=== PATIENT | female | born 1950 | race Caucasian/White ===

== ENCOUNTER → 2017-06-16 12:34 | Outpatient (CLI) | payer MEDICARE, OTHER, SELFPAY | PROVIDERS: Family Provider Family Medicine Geriatric Medicine; PCP Family Medicine Geriatric Medicine; Visit Provider Internal Medicine Cardiovascular Disease | DX: I48.0 Paroxysmal atrial fibrillation (principal) | CPT/HCPCS: 93225; 93226 ==

== ENCOUNTER → 2017-07-19 13:46 | Outpatient (CLI) | payer MEDICARE, OTHER, SELFPAY ==
[2017-07-19 17:11] LABS: Absolute Lymphocyte Count 1.54 X10^3/ul (0.83-4.51); Absolute Neutrophil Count 3.5 X10^3/uL (2.0-7.7); Basophil# 0.09 X10^3/uL; Basophil% 1.2 % (0-1); Eosinophil# 1.69 X10^3/uL; Eosinophils% 22.9 % (0-5); Hematocrit 39.5 % (37-47); Hemoglobin 12.6 g/dl (12.0-15.0); Lymphocyte # 1.54 X10^3/ul (4.0); Lymphocyte % 20.8 % (19-41); Mean Corp Hgb Conc 31.9 g/gl (32-36); Mean Corpuscular Hgb 24.4 pg (27.0-32.0); Mean Corpuscular Volume 76.6 fL (81-99); Mean Platelet Vol. 11.6 fl (6.2-12.0); Monocyte# 0.59 X10^3/uL; Neutrophil # 3.46 X10^3/uL (2.7-7.7); Neutrophil % 46.8 % (47-70); Platelet Count 273 K/mm3 (150-450); RBC Distribution Width CV 14.6 % (11.6-14.6); Red Blood Count 5.16 M/mm3 (4.2-5.4); White Blood Count 7.4 K/mm3 (4.4-11.0)
[2017-07-19 17:24] LABS: POSITIVE COUNT NO; POSITIVE DIFFERENTIAL NO; POSITIVE MORPHOLOGY NO
[2017-07-19 17:55] LABS: ALB/GLOB Ratio 1.1 RATIO (0.9-2.4); AST(SGOT) 21 U/L (15-37); Alanine Aminotransfer ALT/SGPT 29 U/L (13-56); Albumin, Serum 3.6 g/dL (3.2-5.0); Alkaline Phosphatase 67 U/L (45-117); Anion Gap 7 (5-15); BUN 12 mg/dL (7-18); Calcium,Total 8.2 mg/dL (8.5-10.1); Chloride 103 mmol/L (98-107); EST Glomerular Filtration Rate 59 mL/min (>60); Est Glom Filt Rate - Afr Amer 71 mL/min (>60); Globulin 3.2 g/dL (2.2-4.2); Glucose 88 mg/dL (74-106); Potassium 4.1 mmol/L (3.5-5.1); Protein, Total 6.8 g/dL (6.4-8.2); Sodium Level 140 mmol/L (136-145); Thyroid Stim Hormone (TSH) 2.18 uIU/mL (0.358-3.74)
[2017-07-20 08:46] LABS: Vitamin D,25 Hydroxy 59.1 ng/mL (29.95-100.01)
[2017-07-21 09:20] LABS: Hep C Antibodies <0.1 s/co ratio (0.0-0.9)
== END ==
PROVIDERS: Family Provider Family Medicine Geriatric Medicine; PCP Family Medicine Geriatric Medicine; Visit Provider Family Medicine Geriatric Medicine
DX: E11.9 Type 2 diabetes mellitus without complications (principal); E55.9 Vitamin D deficiency, unspecified; I10 Essential (primary) hypertension; Z13.89 Encounter for screening for other disorder
CPT/HCPCS: 36415; 80053; 82306; 84443; 85025; 86803

== ENCOUNTER → 2017-12-05 14:36 | Outpatient (CLI) | payer MEDICARE, OTHER, SELFPAY ==
[2017-12-05 17:02] LABS: Creatinine, Serum 0.97 mg/dL (0.55-1.02); EST Glomerular Filtration Rate 61 mL/min (>60); Est Glom Filt Rate - Afr Amer 73 mL/min (>60)
== END ==
PROVIDERS: Family Provider Family Medicine Geriatric Medicine; PCP Family Medicine Geriatric Medicine; Visit Provider Orthopaedic Surgery Orthopaedic Surgery of the Spine
DX: Z98.890 Other specified postprocedural states (principal)
CPT/HCPCS: 36415; 82565

== ENCOUNTER → 2018-01-18 13:42 | Outpatient (CLI) | payer MEDICARE, OTHER, SELFPAY ==
[2018-01-18 16:17] LABS: Absolute Lymphocyte Count 1.87 X10^3/ul (0.83-4.51); Absolute Neutrophil Count 5.1 X10^3/uL (2.0-7.7); Basophil# 0.07 X10^3/uL; Basophil% 0.9 % (0-1); Eosinophil# 0.21 X10^3/uL; Eosinophils% 2.7 % (0-5); Hematocrit 42.3 % (37-47); Hemoglobin 13.7 g/dl (12.0-15.0); Lymphocyte # 1.87 X10^3/ul (4.0); Lymphocyte % 23.7 % (19-41); Mean Corp Hgb Conc 32.4 g/gl (32-36); Mean Corpuscular Volume 77.2 fL (81-99); Mean Platelet Vol. 11.3 fl (6.2-12.0); Monocyte# 0.63 X10^3/uL; Neutrophil # 5.06 X10^3/uL (2.7-7.7); Neutrophil % 64.1 % (47-70); Platelet Count 322 K/mm3 (150-450); RBC Distribution Width CV 14.1 % (11.6-14.6); RBC Distribution Width SD 39.2 fl (35.1-43.9); Red Blood Count 5.48 M/mm3 (4.2-5.4); White Blood Count 7.9 K/mm3 (4.4-11.0)
[2018-01-18 16:21] LABS: POSITIVE COUNT NO; POSITIVE DIFFERENTIAL NO; POSITIVE MORPHOLOGY NO
[2018-01-18 16:41] LABS: Vitamin D,25 Hydroxy 57.8 ng/mL (29.95-100.01)
[2018-01-18 16:52] LABS: ALB/GLOB Ratio 1.1 RATIO (0.9-2.4); AST(SGOT) 16 U/L (15-37); Alanine Aminotransfer ALT/SGPT 38 U/L (13-56); Albumin, Serum 3.7 g/dL (3.2-5.0); Alkaline Phosphatase 67 U/L (45-117); Anion Gap 9 (5-15); BUN 22 mg/dL (7-18); BUN/Creat Ratio 19.6 RATIO (10-20); Calcium,Total 8.8 mg/dL (8.5-10.1); Chloride 99 mmol/L (98-107); Creatinine, Serum 1.12 mg/dL (0.55-1.02); EST Glomerular Filtration Rate 51 mL/min (>60); Est Glom Filt Rate - Afr Amer 62 mL/min (>60); Globulin 3.4 g/dL (2.2-4.2); Glucose 95 mg/dL (74-106); Potassium 4.1 mmol/L (3.5-5.1); Protein, Total 7.1 g/dL (6.4-8.2); Sodium Level 139 mmol/L (136-145); Thyroid Stim Hormone (TSH) 1.25 uIU/mL (0.358-3.74)
== END ==
PROVIDERS: Family Provider Family Medicine Geriatric Medicine; PCP Family Medicine Geriatric Medicine; Visit Provider Family Medicine Geriatric Medicine
DX: E55.9 Vitamin D deficiency, unspecified (principal); I10 Essential (primary) hypertension
CPT/HCPCS: 36415; 80053; 82306; 84443; 85025

== ENCOUNTER → 2018-02-10 12:58 | Outpatient (CLI) | payer MEDICARE, OTHER, SELFPAY ==
[2018-02-10 13:39] LABS: Absolute Lymphocyte Count 1.64 X10^3/ul (0.83-4.51); Absolute Neutrophil Count 5.2 X10^3/uL (2.0-7.7); Basophil# 0.04 X10^3/uL; Basophil% 0.5 % (0-1); Eosinophil# 0.08 X10^3/uL; Hematocrit 41.4 % (37-47); Hemoglobin 13.4 g/dl (12.0-15.0); Lymphocyte # 1.64 X10^3/ul (4.0); Lymphocyte % 21.4 % (19-41); Mean Corp Hgb Conc 32.4 g/gl (32-36); Mean Corpuscular Hgb 25.3 pg (27.0-32.0); Mean Corpuscular Volume 78.3 fL (81-99); Mean Platelet Vol. 10.2 fl (6.2-12.0); Monocyte# 0.72 X10^3/uL; Monocyte% 9.4 % (0-10); Neutrophil # 5.15 X10^3/uL (2.7-7.7); Neutrophil % 67.2 % (47-70); Platelet Count 290 K/mm3 (150-450); RBC Distribution Width CV 13.9 % (11.6-14.6); RBC Distribution Width SD 39.2 fl (35.1-43.9); Red Blood Count 5.29 M/mm3 (4.2-5.4); White Blood Count 7.7 K/mm3 (4.4-11.0)
[2018-02-10 13:43] LABS: POSITIVE COUNT NO; POSITIVE DIFFERENTIAL NO; POSITIVE MORPHOLOGY NO
[2018-02-10 13:56] LABS: Anion Gap 6 (5-15); BUN 19 mg/dL (7-18); BUN/Creat Ratio 18.4 RATIO (10-20); Chloride 102 mmol/L (98-107); Creatinine, Serum 1.03 mg/dL (0.55-1.02); EST Glomerular Filtration Rate 56 mL/min (>60); Est Glom Filt Rate - Afr Amer 68 mL/min (>60); Glucose 89 mg/dL (74-106); Potassium 3.8 mmol/L (3.5-5.1); Sodium Level 141 mmol/L (136-145)
--- OUTSIDE RECORDS SUMMARY | 2018-04-07 11:57 | XMS RPT_ITS ---
:1950 Author Organization OHIP Care Team Providers Name Role Phone LexxKahlil delgado Attending Unavailable Lalo, Alphonso Chi Referring Unavailable Lalo, Alphonso Chi Primary Care Unavailable Lexx, [place] Attending Unavailable Lexx, [place] Referring Unavailable Lalo, Alphonso Chi Primary Care Unavailable Lexx Kahlil Attending Unavailable Lexx, Kahlil Referring Unavailable Lalo, Alphonso Chi Attending Unavailable Lalo, Alphonso Chi Primary Care Unavailable Radha Jay Attending Unavailable Lalo, Alphonso Chi Referring Unavailable Lalo, Alphonso Chi Primary Care Unavailable JESUS MANUEL JONESIV Attending Unavailable Lalo, Alphonso Chi Primary Care Unavailable JESUS MANUEL JONESIV Referring Unavailable Lalo, Alphonso Chi Attending Unavailable Lalo, Alphonso Chi Primary Care Unavailable Lalo, Alphonso Chi Attending Unavailable Lalo, Alphonso Chi Referring Unavailable Lalo, Alphonso Chi Primary Care Unavailable PROBLEMS PROBLEMS DATE TYPE CONDITION / CODE ATTENDING STATUS SOURCE 02/10/2018 Unknown I10 - Essential Lalo, Alphonso Chi Active [facility] hypertension / Hospital I10(ICD-10) Repository 01/18/2018 Unknown E55.9 - Vitamin D Lalo, Alphonso Chi Active [facility] deficiency, Community unspecified / Hospital E55.9(ICD-10) Repository 11/16/2017 Unknown I48.0 - Paroxysmal Jay, Active [place] atrial [facility] fibrillation / Hospital I48.0(ICD-10) Repository 05/17/2017 Unknown E78.5 - Lexx, Kahlil Active [place] Hyperlipidemia, Community unspecified / Hospital E78.5(ICD-10) Repository PROCEDURES PROCEDURES No Procedure Records FoundRESULTS RESULTS CBC W/DIFF, AUTOMATED Collected: 02/10/2018 Status: F Source: [place] 1:03 PM [facility] REPOSITORY TYPE CODE TESTS RESULT OUT OF RANGE REFERENCE UNITS LAB L100.1000 4.4-11.0 K/mm3 Normal WBC 7.7 LAB L100.1200 4.2-5.4 M/mm3 Normal RBC 5.29 LAB L100.1300 12.0-15.0 g/dl Normal HGB 13.4 LAB L100.1400 37-47 % Normal HCT 41.4 LAB L100.1500 81-99 fL Low MCV 78.3 LAB L100.1600 27.0-32.0 pg Low MCH 25.3 LAB L100.1700 32-36 g/gl Normal MCHC 32.4 LAB L100.1810 11.6-14.6 % Normal RDW CV 13.9 LAB L100.1820 35.1-43.9 fl Normal RDW SD 39.2 LAB L100.1900 150-450 K/mm3 Normal PLT 290 LAB L100.2000 6.2-12.0 fl Normal MPV 10.2 LAB L100.2100 47-70 % Normal NEUT% 67.2 LAB L100.2200 19-41 % Normal LY% 21.4 LAB L100.2300 0-10 % Normal MONO% 9.4 LAB L100.2400 0-5 % Normal EO% 1.0 LAB L100.2500 0-1 % Normal BASO% 0.5 LAB L100.2550 0.0-0.9 % Normal IM GRAN % 0.500 Result Comment: IG% - Immature Granulocytes (promyelocytes, myelocytes and metamyelocytes) > 1% indicates that a LEFT SHIFT is Present. LAB L100.2620 2.0-7.7 X10 3/uL Normal Absolute Neut 5.2 LAB L100.2720 0.83-4.51 X10 3/ul Normal Absolute Lymph 1.64 Performed By: #### L100.0100 #### [facility] [address] [place], [place], [address] BASIC METABOLIC Collected: 02/10/2018 Status: F Source: [facility] 1:03 PM [facility] TYPE CODE TESTS RESULT OUT OF RANGE REFERENCE UNITS LAB L501.0100 74-106 mg/dL Normal GLU 89 Result Comment: Please note revised GLUCOSE reference range effective 2017. LAB L501.1000 7-18 mg/dL High BUN 19 LAB L501.1100 0.55-1.02 mg/dL High CREAT,SERUM 1.03 Result Comment: The validity of the calculated GFR AND GFRAA in patients over 70 years has not been determined. Clinical correlation is essential. LAB L501.1110 >60 mL/min Low EST GFR 56 Result Comment: Non- GFR Calc LAB L501.1115 >60 mL/min Normal EST GFR - AA 68 Result Comment: GFR Calc LAB L501.1300 10-20 RATIO Normal BUN/CRE 18.4 LAB L501.2200 8.5-10.1 mg/dL CA Normal 9.0 LAB L501.5300 136-145 mmol/L NA Normal 141 LAB L501.5600 3.5-5.1 mmol/L K Normal 3.8 LAB L501.5900 98-107 mmol/L CL Normal 102 LAB L501.6100 21.0-32.0 mmol/L High CO2 33.0 LAB L501.6200 5-15 Normal GAP 6 Performed By: #### L500.2500 #### [facility] [address] [place], [place], [address] CBC W/DIFF, AUTOMATED Collected: 01/18/2018 Status: F Source: [place] 1:49 PM [facility] [place] TYPE CODE TESTS RESULT OUT OF RANGE REFERENCE UNITS LAB L100.1000 4.4-11.0 K/mm3 Normal WBC 7.9 LAB L100.1200 4.2-5.4 M/mm3 High RBC 5.48 LAB L100.1300 12.0-15.0 g/dl Normal HGB 13.7 LAB L100.1400 37-47 % Normal HCT 42.3 LAB L100.1500 81-99 fL Low MCV 77.2 LAB L100.1600 27.0-32.0 pg Low MCH 25.0 LAB L100.1700 32-36 g/gl Normal MCHC 32.4 LAB L100.1810 11.6-14.6 % Normal RDW CV 14.1 LAB L100.1820 35.1-43.9 fl Normal RDW SD 39.2 LAB L100.1900 150-450 K/mm3 Normal PLT 322 LAB L100.2000 6.2-12.0 fl Normal MPV 11.3 LAB L100.2100 47-70 % Normal NEUT% 64.1 LAB L100.2200 19-41 % Normal LY% 23.7 LAB L100.2300 0-10 % Normal MONO% 8.0 LAB L100.2400 0-5 % Normal EO% 2.7 LAB L100.2500 0-1 % Normal BASO% 0.9 LAB L100.2550 0.0-0.9 % Normal IM GRAN % 0.600 Result Comment: IG% - Immature Granulocytes (promyelocytes, myelocytes and metamyelocytes) > 1% indicates that a LEFT SHIFT is Present. LAB L100.2620 2.0-7.7 X10 3/uL Normal Absolute Neut 5.1 LAB L100.2720 0.83-4.51 X10 3/ul Normal Absolute Lymph 1.87 Performed By: #### L100.0100 #### [facility] [address] [place], [place], [address] VITAMIN D,25 HYDROXY Collected: 01/18/2018 Status: F Source: [place] 1:49 PM [facility] [place] TYPE CODE TESTS RESULT OUT OF RANGE REFERENCE UNITS LAB L506.1000 29.95-100.01 ng/mL Normal Vitamin D 57.8 25-OH Result Comment: Vitamin D 25(OH) Status Range Deficiency <20 ng/mL (50nmol/L) Insuffciency 20 - 30 ng/mL (50 - 75 nmol/L) Sufficiency 30 - 100 ng/mL (75 - 250 nmol/L) Toxicity >100 ng/mL (>250 nmol/L) Performed By: #### L506.1000 #### [facility] [place], [address] COMPREHENSIVE METABOLIC Collected: 01/18/2018 Status: F Source: [place] [facility] 1:49 PM [facility] TYPE CODE TESTS RESULT OUT OF RANGE REFERENCE UNITS LAB L501.0100 74-106 mg/dL Normal GLU 95 Result Comment: Please note revised GLUCOSE reference range effective 2017. LAB L501.1000 7-18 mg/dL High BUN 22 LAB L501.1100 0.55-1.02 mg/dL High CREAT,SERUM 1.12 Result Comment: The validity of the calculated GFR AND GFRAA in patients over 70 years has not been determined. Clinical correlation is essential. LAB L501.1110 >60 mL/min Low EST GFR 51 Result Comment: Non- GFR Calc LAB L501.1115 >60 mL/min Normal EST GFR - AA 62 Result Comment: GFR Calc LAB L501.1300 10-20 RATIO Normal BUN/CRE 19.6 LAB L501.1500 6.4-8.2 g/dL T Normal PROT 7.1 LAB L501.1800 3.2-5.0 g/dL Normal ALB 3.7 LAB L501.1950 2.2-4.2 g/dL Normal GLOB 3.4 LAB L501.2000 0.9-2.4 RATIO Normal A/G 1.1 LAB L501.2200 8.5-10.1 mg/dL CA Normal 8.8 LAB L501.4100 15-37 U/L Normal AST 16 LAB L501.4305 45-117 U/L Normal ALK P 67 LAB L501.4405 13-56 U/L Normal ALT 38 LAB L501.4600 0.20-1.00 mg/dL T Normal BILI 0.40 LAB L501.5300 136-145 mmol/L NA Normal 139 LAB L501.5600 3.5-5.1 mmol/L K Normal 4.1 LAB L501.5900 98-107 mmol/L CL Normal 99 LAB L501.6100 21.0-32.0 mmol/L Normal CO2 31.0 LAB L501.6200 5-15 Normal GAP 9 Performed By: #### L500.4050, L501.9520 #### [facility] [address] [place], [address] THYROID STIM HORMONE Collected: 01/18/2018 Status: F Source: [place] ([facility]) 1:49 PM [facility] TYPE CODE TESTS RESULT OUT OF RANGE REFERENCE UNITS LAB L501.9520 0.358-3.74 uIU/mL Normal TSH 1.25 Performed By: #### L500.4050, L501.9520 #### [facility] [address] [place], [address] SERUM CREATININE AND Collected: 12/05/2017 Status: F Source: [place] G[facility] 2:42 PM [facility] TYPE CODE TESTS RESULT OUT OF RANGE REFERENCE UNITS LAB L501.1100 0.55-1.02 mg/dL Normal 0.97 CREAT,SERUM Result Comment: The validity of the calculated GFR AND GFRAA in patients over 70 years has not been determined. Clinical correlation is essential. LAB L501.1110 >60 mL/min Normal EST GFR 61 Result Comment: Non- GFR Calc LAB L501.1115 >60 mL/min Normal EST GFR - AA 73 Result Comment: GFR Calc Performed By: #### L501.1105 #### [facility] [address] [place], [address] CARDIOLOGY VISIT Observed: 11/24/2017 Status: F Source: [place] RE[facility] 10:36 AM [facility] [address] [place] [address] OFFICE VISIT Date of Service: 11/16/17 MR#: [id number] Acct: [id number] Name: VIC CEDENO Rep #: [id number] : 1950 Provider: Radha Jay Age/Sex: 67/F Location: [facility] Status: Signed HPI HPI Details: VIC CEDENO, is a 67 F who presents to the office today for a cardiovascular follow-up. She has a history of atrial fibrillation with RVR. She was cardioverted in 2013 in 2014. She also has a history of hypertension, hyperlipidemia and lower extremity edema. Pt did restart her Xarelto, she sts that she was having short episodes of atrial fib. She sts that when she gets up in the morning she feels that her heart is pounding but after she takes her medication it goes away. She does not have any chest pain/heaviness. She does not have worsening SOB. She does have issues with her back. She does occasionally have edema. She does occasionally have lightheadedness/dizziness. She has not had any near syncope/syncope. Intake Vital Signs11/16/17 Height 5 ft 4 in 11/16/17 Weight: 199 lb 11/16/17 Body Mass Index (BMI) 34.1 11/16/17 Blood Pressure 152/80 11/16/17 Respiratory Rate 18 11/16/17 Pulse Rate 60 Intake Visit Reasons: 6 M FU Allergies amlodipine besylate [From [facility]] Adverse Reaction (Intermediate, Verified 11/16/17 12:26) Edema in legs (known side effect of Amlodipine) hydrochlorothiazide Adverse Reaction (Intermediate, Verified 11/16/17 12:26) Doesn't feel good Medications Duloxetine Hcl [Cymbalta] 60 mg PO DAILY 08/24/13 [History Confirmed 11/16/17] Estrogens, Conjugated [Premarin] 0.625 mg PO DAILY 08/24/13 [History Confirmed 11/16/17] Levothyroxine [Synthroid] 50 mcg PO DAILY 08/24/13 [History Confirmed 11/16/17] Metoprolol Tartrate [Lopressor (beta chivo)] 50 mg PO BID 08/24/13 [History Confirmed 11/16/17] amlodipine 5 mg tablet 5 mg PO BID #180 tab 03/30/17 [Rx Confirmed 11/16/17] ergocalciferol (vitamin D2) 50,000 unit capsule 50,000 unit PO QWEEK 05/11/17 [History Confirmed 11/16/17] flecainide 100 mg tablet 100 mg PO BID tab 05/11/17 [History Confirmed 11/16/17] rosuvastatin 10 mg tablet 10 mg PO QHS tab 05/11/17 [History Confirmed 11/16/17] losartan 100 mg tablet 100 mg PO DAILY #90 tab 06/08/17 [Rx Confirmed 11/16/17] rivaroxaban 20 mg tablet 20 mg PO QDAY #90 tab 09/07/17 [Rx Confirmed 11/16/17] furosemide 40 mg tablet 40 mg PO QDAY PRN #30 tab 11/16/17 [Rx Confirmed 11/16/17] [facility] Medical History Hyperlipidemia (Chronic) Diabetes mellitus (Chronic) 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 (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) Anemia (Chronic) Paroxysmal atrial fibrillation (Chronic) Dyslipidemia (Chronic) Hypertension (Chronic) Surgical History History of left heart catheterization (Chronic) Family History Father unknown health history Mother , Age 32 from breast cancer Breast cancer Brother Atrial fibrillation Social History Smoking Status: Never smoker ROS Const Const: Negative for fatigue, weakness, difficulty sleeping, frequent falls, excessive sweating or headache(s) Eyes Eyes: Negative for loss of peripheral vision, transient loss of vision, blurry vision, tunnel vision or double vision ENT ENT: Negative for headache(s), dizziness, Nosebleed/epistaxis or balance problems Cardio Chest Pain: No Palpitations: Yes (Usually in the morning) feels like its: irregular Edema: None Muscle aches with walking: None Resp Respiratory: Negative for SOB with activity, SOB at rest, SOB orthopnea\SOB lying down, paroxysmal nocturnal dyspnea or Cough GI GI: Negative nausea, heartburn, black,tarry stools or vomiting : Negative for hematuria Musc Musc: Negative for balance problems, muscle aches/ myalgia, muscle weakness or joint pain Skin Skin: Negative non-healing lesions, unusual bruising or rash Neuro Neuro: Negative for weakness, frequent falls, headache(s), blurry vision, double vision, dizziness, lightheadedness, orthostatic symptoms, near syncope, syncope or lack of coordination Dyllan Hematologic/Lymphatic: Negative for easy bruising or easy bleeding Endo Endo: Negative for fatigue, excessive sweating or increased thirst/drinking Psych Psych: Negative for anxiety or depression Allergy Allergy/Immunology: Negative for hives, Negative for rash Cardiology Exam Const Appearance: cooperative, healthy appearing, well developed, well groomed and no acute distress Nutritional Appearance: well nourished and average body habitus Orientation: alert, awake and oriented x3 Head Head: normal to inspection, normocephalic and atraumatic Ears: hearing grossly normal bilaterally and external ears normal Nose: external nose normal, nasal mucous membranes and turbinates normal, nares normal, septum normal, no nasal discharge Face and Sinus: face symmetric Mouth: oral mucosae normal, tongue normal, oropharynx normal and moist mucous membranes Teeth and gingiva: dentition normal Throat: posterior oropharynx normal, tonsils normal and uvula midline Eyes General: appearance normal, both eyes and all related structures Eyelids: eyelids normal Conjunctivae: conjunctivae normal Pupils: PERRL, normal by confrontation and accommodation normal EOM: EOM intact bilaterally Neck Neck: normal visual inspection, trachea midline and no JVD JVD: +5 Carotids: normal carotid upstroke and bounding pulses Chest Chest inspection: normal inspection of the chest, symmetric chest movement and normal respiratory effort Auscultation: Bilateral: Clear to Auscultation Cardio Palpation: normal PMI Rate: regular rate Rhythm: regular rhythm Heart sounds: S1 normal, S2 normal and normal, physiologic split S2; negative rub, gallop or murmur GI GI: normal to inspection, soft, no hepatosplenomegaly and bowel sounds present Neuro General: alert, awake, oriented x3, no focal sensory deficit, gait normal and moves all extremities Skin Skin: no rashes or lesions noted Extremities Pulses: Normal: Right Femoral Pulse, Left Femoral Pulse, Right Dorsalis Pedis Pulse, Left Dorsalis Pedis Pulse, Right Posterior Tibial Pulse, Left Posterior Tibial Pulse, Right Radial Pulse, Left Radial Pulse Lower Extremity Edema: None: Bilateral Musculoskel Musculoskeletal: No joint tenderness Psych Psychological: normal affect Supplemental Info Heart catheterization from 2014 demonstrated normal left main, LAD with no high-grade stenosis, circumflex with no high-grade stenosis, codominant left circumflex with no high-grade stenosis, codominant RCA with no high-grade stenosis with a preserved ejection fraction. Assessment AND Plan 1. Paroxysmal atrial fibrillation I48.0 Plan - MARISSA Khanna Patient has had some symptomatic recurrence. She will continue with her flecainide. She is also on a rate limiting medication in addition to her factor Xa inhibitor. Orders Orders: 2. Essential hypertension I10 Plan - MARISSA Khanna Patient is having fluctuations of blood pressures. suggested that she try to split her losartan to half in the morning and half in the evening to see if this helps with her symptoms. She will let us know if she still having problems. Overall it is adequately controlled. 3. Dyslipidemia E78.5 Plan - MARISSA Khanna These are managed by her primary care doctor. Recent lipid profile demonstrates total cholesterol of 175, HDL 60, LDL 90. Will not make any adjustments. Plan Detail Other Medications New: Additional Comments - MARISSA Khanna The above patient was discussed with Dr. Hallman, he agrees with plan of care. Thank you for allowing us to participate in patient's plan of care, if you have any questions please do not hesitate to call. This note was generated using a voice recognition system and there may be incorrect words, spelling or punctuation errors that were not noted when reviewing the office note prior to saving. 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) Coding Level of Care Code Off vis,est,level 3 Diagnoses Paroxysmal atrial fibrillation I48.0 Essential hypertension I10 Hypertension type: essential hypertension Dyslipidemia E78.5 Coding Level of Care Code Off vis,est,level 3 Diagnoses Paroxysmal atrial fibrillation I48.0 Essential hypertension I10 Hypertension type: essential hypertension Dyslipidemia E78.5 11/16/17 1340 <Electronically signed by Radha ANN> Date Radha ANN 11/24/17 1036<Electronically signed by Kahlil Hallman MD> Cosigner Signature: Date (if applicable) Kahlil Hallman MD CC: Alphonso May MD 12 LEAD EKG PERFORMED Observed: 11/16/2017 Status: F Source: [place] BY [facility] 1:09 PM [facility] [facility] [address] [place] [address] 12 Lead EKG performed by [facility] 11/16/17 1308 MR#: [id number] Acct: [id number] Name: VIC CEDENO Rep #: [id number] : 1950 67 From: Radha ANN Attending Dr: Radha Jay Status: DEP AMB Ordering Dr: Radha Jay Date: 11/16/17 Location[place] [facility] Sex: F C Admitted: [facility]/12 Lead EKG performed by [facility] ECG Report Interpretation Sinus Rhythm WITHIN NORMAL LIMITSElectronically signed on 02/23/2018 at 11:32 by Kahlil Hallman Software Version [id number] 02/23/18 1135 Date Radha ANN CC: Alphonso May MD Date Dictated: 11/16/171307 Date Transcribed: 11/16/171307 Beater Worker Helper: GEOFF Signed CBC W/DIFF, AUTOMATED Collected: 07/19/2017 Status: F Source: [place] 1:51 PM [facility] TYPE CODE TESTS RESULT OUT OF RANGE REFERENCE UNITS LAB L100.1000 4.4-11.0 K/mm3 Normal WBC 7.4 LAB L100.1200 4.2-5.4 M/mm3 Normal RBC 5.16 LAB L100.1300 12.0-15.0 g/dl Normal HGB 12.6 LAB L100.1400 37-47 % Normal HCT 39.5 LAB L100.1500 81-99 fL Low MCV 76.6 LAB L100.1600 27.0-32.0 pg Low MCH 24.4 LAB L100.1700 32-36 g/gl Low MCHC 31.9 LAB L100.1810 11.6-14.6 % Normal RDW CV 14.6 LAB L100.1820 35.1-43.9 fl Normal RDW SD 40.0 LAB L100.1900 150-450 K/mm3 Normal PLT 273 LAB L100.2000 6.2-12.0 fl Normal MPV 11.6 LAB L100.2100 47-70 % Low NEUT% 46.8 LAB L100.2200 19-41 % Normal LY% 20.8 LAB L100.2300 0-10 % Normal MONO% 8.0 LAB L100.2400 0-5 % High EO% 22.9 LAB L100.2500 0-1 % High BASO% 1.2 LAB L100.2550 0.0-0.9 % Normal IM GRAN % 0.300 Result Comment: IG% - Immature Granulocytes (promyelocytes, myelocytes and metamyelocytes) > 1% indicates that a LEFT SHIFT is Present. LAB L100.2620 2.0-7.7 X10 3/uL Normal Absolute Neut 3.5 LAB L100.2720 0.83-4.51 X10 3/ul Normal Absolute Lymph 1.54 Performed By: #### L100.0100 #### [facility] [address] [place], [place], [id number] COMPREHENSIVE METABOLIC Collected: 07/19/2017 Status: F Source: [facility] 1:51 PM [facility] TYPE CODE TESTS RESULT OUT OF RANGE REFERENCE UNITS LAB L501.0100 74-106 mg/dL Normal GLU 88 Result Comment: Please note revised GLUCOSE reference range effective 2017. LAB L501.1000 7-18 mg/dL Normal BUN 12 LAB L501.1100 0.55-1.02 mg/dL Normal CREAT,SERUM 1.00 Result Comment: The validity of the calculated GFR AND GFRAA in patients over 70 years has not been determined. Clinical correlation is essential. LAB L501.1110 >60 mL/min Low EST GFR 59 Result Comment: Non- GFR Calc LAB L501.1115 >60 mL/min Normal EST GFR - AA 71 Result Comment: GFR Calc LAB L501.1300 10-20 RATIO Normal BUN/CRE 12.0 LAB L501.1500 6.4-8.2 g/dL T Normal PROT 6.8 LAB L501.1800 3.2-5.0 g/dL Normal ALB 3.6 LAB L501.1950 2.2-4.2 g/dL Normal GLOB 3.2 LAB L501.2000 0.9-2.4 RATIO Normal A/G 1.1 LAB L501.2200 8.5-10.1 mg/dL Low CA 8.2 LAB L501.4100 15-37 U/L Normal AST 21 LAB L501.4305 45-117 U/L Normal ALK P 67 LAB L501.4405 13-56 U/L Normal ALT 29 LAB L501.4600 0.20-1.00 mg/dL T Normal BILI 0.30 LAB L501.5300 136-145 mmol/L NA Normal 140 LAB L501.5600 3.5-5.1 mmol/L K Normal 4.1 LAB L501.5900 98-107 mmol/L CL Normal 103 LAB L501.6100 21.0-32.0 mmol/L Normal CO2 30.0 LAB L501.6200 5-15 Normal GAP 7 Performed By: #### L500.4050, L501.9520 #### [facility] [address] [place], [place], [id number] THYROID STIM HORMONE Collected: 07/19/2017 Status: F Source: [place] ([facility]) 1:51 PM [facility] TYPE CODE TESTS RESULT OUT OF RANGE REFERENCE UNITS LAB L501.9520 0.358-3.74 uIU/mL Normal TSH 2.18 Performed By: #### L500.4050, L501.9520 #### [facility] [address] [place], [address] VITAMIN D,25 HYDROXY Collected: 07/19/2017 Status: F Source: [place] 1:51 PM [facility] TYPE CODE TESTS RESULT OUT OF RANGE REFERENCE UNITS LAB L506.1000 29.95-100.01 ng/mL Normal Vitamin D 59.1 25-OH Result Comment: Vitamin D 25(OH) Status Range Deficiency <20 ng/mL (50nmol/L) Insuffciency 20 - 30 ng/mL (50 - 75 nmol/L) Sufficiency 30 - 100 ng/mL (75 - 250 nmol/L) Toxicity >100 ng/mL (>250 nmol/L) Performed By: #### L506.1000 #### [facility] [address] [place], [address] HEPATITIS C ANTIBODIES Collected: 07/19/2017 Status: F Source: [place] 1:51 PM [facility] TYPE CODE TESTS RESULT OUT OF RANGE REFERENCE UNITS LAB L3100.0650 0.0-0.9 s/co ratio Normal HEP C AB <0.1 Result Comment: Negative: < 0.8 Indeterminate: 0.8 - 0.9 Positive: > 0.9 The CDC recommends that a positive HCV antibody result be followed up with a HCV Nucleic Acid Amplification test (623470). Performed at: [facility] [id number] Political Researcher: Josh Castaneda PhD, Phone: [phone] Performed By: #### L3100.0625 #### [facility] (refer to report for specific site) refer to report for address and phone number CARDIOLOGY VISIT Observed: 05/17/2017 Status: F Source: [place] RE[facility] 2:23 PM [facility] [address] [place] [address] OFFICE VISIT Date of Service: 05/17/17 MR#: [id number] Acct: [id number] Name: VIC CEDEON Rep #: [id number] : 1950 Provider: Kahlil Hallman MD Age/Sex: 66/F Location: [facility] Status: Signed HPI [facility] Chief Complaint: Follow-up visits. Details: VIC CEDENO, is a 66 F who presents to the office today for a follow-up visit. She is a lady with a history of previous atrial fibrillation hypertension hyperlipidemia and no documented obstructive coronary disease. As you know her last episode atrial for ablation was almost 3 years ago she has maintained sinus rhythm. She denies any chest pain or shortness breath or paroxysmal nocturnal dyspnea or pedal edema no dizziness no lightheadedness no presyncope or syncope. She has been compliant with all her medications. As you know she really wants to get off the anticoagulation. I did explain to her that she does have an elevated chads score. However it appears that she has not had any recurrence in over 3 years. Her physical exam today demonstrates clear lung zuleta regular rate and rhythm and no pedal edema her blood pressure is under excellent control. Intake Vital Signs05/17/17 Height 5 ft 4 in 05/17/17 Weight: 194 lb 05/17/17 Body Mass Index (BMI) 33.3 05/17/17 Blood Pressure 130/64 Intake Visit Reasons: 6 M FU Accompanied by: Is patient in pain?: No Allergies amlodipine besylate [From [facility]] Adverse Reaction (Intermediate, Verified 05/17/17 13:54) Edema in legs (known side effect of Amlodipine) hydrochlorothiazide Adverse Reaction (Intermediate, Verified 05/17/17 13:54) Doesn't feel good Medications Duloxetine Hcl [Cymbalta] 60 mg PO DAILY 08/24/13 [History Confirmed 05/11/17] Estrogens, Conjugated [Premarin] 0.625 mg PO DAILY 08/24/13 [History Confirmed 05/17/17] Levothyroxine [Synthroid] 50 mcg PO DAILY 08/24/13 [History Confirmed 05/11/17] Losartan Potassium [Cozaar] 100 mg PO DAILY 08/24/13 [History Confirmed 05/11/17] Metoprolol Tartrate [Lopressor (beta chivo)] 50 mg PO BID 08/24/13 [History Confirmed 05/11/17] amlodipine 5 mg tablet 5 mg PO BID #180 tab 03/30/17 [Rx Confirmed 05/11/17] ergocalciferol (vitamin D2) 50,000 unit capsule 50,000 unit PO QWEEK 05/11/17 [History Confirmed 05/11/17] flecainide 100 mg tablet 100 mg PO BID tab 05/11/17 [History Confirmed 05/11/17] rosuvastatin 10 mg tablet 10 mg PO QHS tab 05/11/17 [History Confirmed 05/11/17] furosemide 40 mg tablet 40 mg PO QDAY PRN tab 05/17/17 [History Confirmed 05/17/17] Ejection fraction %: 60 to 64 PFSH Medical History Hyperlipidemia (Chronic) Diabetes mellitus (Chronic) 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 (Chronic) [facility] use of drug (Chronic) Anemia (Chronic) Paroxysmal atrial fibrillation (Chronic) Dyslipidemia (Chronic) Hypertension (Chronic) Surgical History History of left heart catheterization (Chronic) Family History Father unknown health history Mother , Age 32 from breast cancer Breast cancer Brother Atrial fibrillation Social History Smoking Status: Never smoker ROS Const Const: Negative for fatigue, weakness, body ache, fever(s), headache(s), chills, frequent falls, night sweats, daytime sleepiness, difficulty sleeping, excessive sweating, weight gain, weight loss, increased appetite, poor appetite, anorexia or other Eyes Eyes: Negative for blind spots, loss of peripheral vision, transient loss of vision, blurry vision, change in vision, double vision, floaters, tunnel vision or other ENT ENT: Negative for headache(s), dizziness, hearing loss, tinnitus, Nosebleed/epistaxis, balance problems, post nasal drip, lip swelling, tongue swelling, bleeding gums, hoarseness, neck pain, dry mouth or other Cardio Chest Pain: No Resp Respiratory: Negative for SOB with activity, SOB at rest, SOB orthopnea\SOB lying down, Coughing up blood/hemoptysis, chest congestion, pain on inspiration, snoring, stridor, wheezing, crackles, paroxysmal nocturnal dyspnea or other GI GI: Negative nausea, vomiting, heartburn, constipation, belching, bloating, cramping, vomiting blood/hematemesis, bright, red blood in stools, black,tarry stools, loose stools, Difficulty Swallowing or other : Negative for hematuria, frequent nighttime urination/ nocturia, erectile dysfunction or abnormal vaginal bleeding Musc Musc: Negative for balance problems, muscle aches/ myalgia, muscle weakness or joint pain Skin Skin: Negative redness, non-healing lesions, rash, unusual bruising, skin ulcer, wounds, jaundice or other Neuro Neuro: Negative for weakness, headache(s), frequent falls, blurry vision, double vision, dizziness, lightheadedness, near syncope, syncope, orthostatic symptoms, confusion, memory loss, restless legs, vertigo, seizures, lack of coordination or other Dyllan Hematologic/Lymphatic: Negative for easy bleeding, easy bruising, enlarged lymph nodes or other Endo Endo: Negative for fatigue, excessive sweating, cold intolerance, heat intolerance, flushing, increased thirst/drinking, increased hunger, hair loss, hair growth or other Psych Psych: Negative for anxiety, depression, thoughts of harming anyone, thoughts of harming yourself, visual hallucinations, panic attacks or audible hallucinations Allergy Allergy/Immunology: Negative for lip swelling, Negative for tongue swelling, Negative for rash, Negative for throat swelling, Negative for hives Cardiology Exam Const Appearance: cooperative, healthy appearing, well developed, well groomed and no acute distress Nutritional Appearance: well nourished and average body habitus Orientation: alert, awake and oriented x3 Head Head: normal to inspection, normocephalic and atraumatic Ears: hearing grossly normal bilaterally and external ears normal Nose: external nose normal, nasal mucous membranes and turbinates normal, nares normal, septum normal, no nasal discharge Face and Sinus: face symmetric Mouth: oral mucosae normal, tongue normal, oropharynx normal and moist mucous membranes Teeth and gingiva: dentition normal Throat: posterior oropharynx normal, tonsils normal and uvula midline Eyes General: appearance normal, both eyes and all related structures Eyelids: eyelids normal Conjunctivae: conjunctivae normal Pupils: PERRL, normal by confrontation and accommodation normal EOM: EOM intact bilaterally Neck Neck: normal visual inspection, trachea midline and no JVD JVD: +5 Carotids: normal carotid upstroke and bounding pulses Chest Chest inspection: normal inspection of the chest, symmetric chest movement and normal respiratory effort Auscultation: Bilateral: Clear to Auscultation Cardio Palpation: normal PMI Rate: regular rate Rhythm: regular rhythm Heart sounds: S1 normal, S2 normal and normal, physiologic split S2; negative rub, gallop or murmur GI GI: normal to inspection, soft, no hepatosplenomegaly and bowel sounds present Neuro General: alert, awake, oriented x3, no focal sensory deficit, gait normal and moves all extremities Skin Skin: no rashes or lesions noted Extremities Pulses: Normal: Right Femoral Pulse, Left Femoral Pulse, Right Dorsalis Pedis Pulse, Left Dorsalis Pedis Pulse, Right Posterior Tibial Pulse, Left Posterior Tibial Pulse, Right Radial Pulse, Left Radial Pulse Lower Extremity Edema: None: Bilateral Musculoskel Musculoskeletal: No joint tenderness Psych Psychological: normal affect Assessment AND Plan 1. Paroxysmal atrial fibrillation I48.0 Plan History of atrial fibrillation. She has not had any further episodes of atrial fibrillation over 3 years. At this time though she has an elevated chads score and she wants to be off the Xarelto I have reluctantly agreed for her to be off it and to continue to monitor her closely. She will however remain on the flecainide and take a baby aspirin. I would like to obtain a 24-hour Holter monitor in approximately a month to exclude any occult periods of atrial fibrillation. She does understand that should she have any episodes of atrial fibrillation she will need to go back on the Xarelto. Orders Orders: 2. Essential hypertension I10 Plan Her blood pressure is under good control on the beta-chivo ARB as well as a calcium channel chivo and she will continue this without making any changes. 3. Dyslipidemia E78.5 Plan Her most recent lipid profile was excellent with a total cholesterol 175 LDL of 90 and HDL of 61. No other changes will be made. Plan Detail Other Medications Discontinued: Follow Up 6 Months (mmm) Coding Level of Care Code Off vis,est,level 4 Diagnoses Paroxysmal atrial fibrillation I48.0 Essential hypertension I10 Hypertension type: essential hypertension Dyslipidemia E78.5 Coding Level of Care Code Off vis,est,level 4 Diagnoses Paroxysmal atrial fibrillation I48.0 Essential hypertension I10 Hypertension type: essential hypertension Dyslipidemia E78.5 05/17/17 1423 <Electronically signed by Kahlil Hallman MD> Date Kahlil Hallman MD Cosigner Signature: Date (if applicable) CC: Alphonso May MD ALLERGIES ALLERGIES DATE TYPE / CODE NAME / CODE REACTION SEVERITY SOURCE 11/16/2017 Drug amlodipine Edema in legs [place] Allergy/416 besylate/[id number] (known side Community 012957(SNOM 73(RXNORM) effect of Hospital ED CT) Amlodipine) Repository 11/16/2017 Drug hydrochlorothiazi doesn't feel [place] Allergy/416 de/[id number](RXN good [facility] 933074([facility] ED CT) Repository ENCOUNTERS ENCOUNTERS ADMIT/DISCHARGE ACCOUNT ADMITTING ENCOUNTER LOCATION SOURCE NUMBER CLASS 02/10/2018 [id number] Ambulatory [place] 5 [facility] ing:LAB Repository 01/18/2018 [id number] Ambulatory [place] 1 [facility] ing:POLAB3 Repository 12/05/2017 [id number] Ambulatory [place] 5 [facility] ing:LAB.FUTUR Repository E 11/16/2017/ [id number] Ambulatory BMSBuilding:B [place] 8 4 [facility] Repository 07/19/2017 [id number] Ambulatory [place] 7 [facility] ing:POLAB3 Repository 06/16/2017 [id number] Ambulatory [place] 5 [facility] ing:PSN Repository 06/16/2017 [id number] Ambulatory BMSBuilding:W [place] 9 [facility] Repository 05/17/2017/ [id number] Ambulatory BMSBuilding:B [place] 8 7 [facility] Repository PAYERS PAYERS ENCOUNTER GUARANTOR PAYER SUBSCRIBER SOURCE 02/10/2018 VIC Larry Primary VIC Larry [place] [id number] ARMAS Insurance:MEDICARE LEAVERDOB: [place] PART A [facility] [id number] Hospital [address]67Cxb: (234) Number: Repository [phone] ) [id number] Date:2018-02-10 02/10/2018 Secondary VIC S [place] Insurance:AARPPolicy LEAVERDOB: [facility] Number: [id number] Hospital [id number] Repository Date:7041-45-[address], [place] [address]FN: 02/10/2018 Tertiary NOT GIVENUNK [place] Insurance:SELF PAY [facility] Number: Effective Repository Date:2018-02-10 01/18/2018 VIC S Primary VIC S [place] [id number] ARMAS Insurance:MEDICARE LEAVERDOB: [place] PART A olic [id number] Hospital 22252Jyu: (234) Number: Repository [phone] () [id number] Date:2018-01-18 01/18/2018 Secondary VIC S [place] Insurance:AARPPolicy LEAVERDOB: Community Number: [id number] Hospital [id number] Repository Date:7903-45-[address], [place] [address]IT: 01/18/2018 Tertiary NOT GIVENUNK [place] Insurance:SELF PAY [facility]: Effective Repository Date:2018-01-18 12/05/2017 VIC S Primary VIC S [place] [id number] ARMAS Insurance:MEDICARE LEAVERDOB: [place] PART A olic [id number] Hospital [address]Qnk: (234) Number: Repository [phone] () [id number] Date:2017-11-29 12/05/2017 Secondary VIC S [place] Insurance:AARPPolicy LEAVERDOB: Community Number: [id number] Hospital [id number] Repository Date:7536-86-[address], [place] [address]OZ: 12/05/2017 Tertiary NOT GIVENUNK [place] Insurance:SELF PAY [facility] Number: Effective Repository Date:2017-11-29 11/16/2017 VIC S Primary VIC S [place] [id number] ARMAS Insurance:MEDICARE LEAVERDOB: [place] A [facility] [id number] Hospital [address]Jmd: (234) Number: Repository [phone] () [id number] Date:2017-05-17 11/16/2017 Secondary VIC S [place] Insurance:AARPPolicy LEAVERDOB: Community Number: [id number] Hospital [id number] Repository Date:9395-18-40[address], [place] [address]JM: 11/16/2017 Tertiary NOT GIVENUNK [place] Insurance:SELF PAY [facility] Number: Effective Repository Date:2017-11-16 07/19/2017 VIC Larry Primary VIC Larry [place] [id number] ARM[place] Insurance:MEDICARE LE[place]ERDOB[place] olic [id number] Hospital [address]Fnw: Number: Repository [phone] [id number] (HP) Date:2017-07-19 07/19/2017 Secondary VIC S [place] Insurance:AARPPolicy LEAVERDOB: Community Number: [id number] Hospital [id number] Repository Date:7248-58-20[address], [place] [address]NY: 07/19/2017 Tertiary NOT GIVENUNK [place] Insurance:SELF PAY [facility] Number: Effective Repository Date:2017-07-19 06/16/2017 VIC S Primary VIC S [place] [id number] ARMAS Insurance:MEDICARE LEAVERDOB: [facility] PART A [facility] [id number]: Number: Repository [phone] [id number] () Date:2017-05-17 06/16/2017 Secondary VIC S [place] Insurance:AARPPolicy LEAVERDOB: Community Number: [id number] Hospital [id number] Repository Date:7905-04-09[address], [place] [address]NF: 06/16/2017 Tertiary NOT GIVENUNK Crystal Insurance:SELF PAY [facility] Number: Effective Repository Date:2017-05-17 06/16/2017 VIC S Primary VIC S [place] [id number] ARM[place] Insurance:MEDICARE LEAVERDOB: [place] [facility] [id number] [id number]: Number: Repository [phone] [id number] (HP) Date:2017-05-17 06/16/2017 Secondary VIC S [place] Insurance:AARPPolicy LEAVERDOB: Community Number: [id number] Hospital [id number] Repository Date:7082-37-35[address], [place] [address]BL: 06/16/2017 Tertiary NOT GIVENUNK [place] Insurance:SELF PAY [facility] Number: Effective Repository Date:2017-06-16 05/17/2017 VIC S Primary VIC Larry [place] [id number] ARMAS Insurance:MEDICARE LEAVERDOB: Community [place] BPolicy [id number] Hospital [address]Nto: Number: Repository [phone] [id number] () Date:2017-02-18 05/17/2017 Secondary VIC Larry [place] Insurance:AARPPolicy LEAVERDOB: Community Number: [id number] Hospital [id number] Repository Date:2698-73-14[address], [place] [address]LA: 05/17/2017 Tertiary NOT GIVENUNK [place] Insurance:SELF PAY [facility] Number: Effective Repository Date:2017-05-17
--- OUTSIDE RECORDS SUMMARY | 2018-04-07 11:57 | XMS RPT_ITS ---
:1950 Author Organization [employer] Address [address] [place] [address] Phone Care Team Providers Name Role Phone Demetri RODRIGUEZ, Elroy Parson Reason for Visit Reason For Visit Description Start Date Test Result Preliminary reason for visit data, not yet signed by the author as of lower back pain Preliminary reason for visit data, not yet signed by the author as of Chief Complaint Chief Complaint Description Start Date lower back pain Preliminary chief complaint data, not yet signed by the author as of Instructions Instruction Description Start Date Patient advised to follow-up with Primary Care Physician for BMI management. Plan of Care Type Date Detail Appointment 03:30 PM Elroy Mosquera MD, [address], [place], [address], Referral Pain Management consultation Pending order Epidural injection(s) - Lumbar Patient education Medications Medications Medication Instructions Start Stop Generic Name ND Provider Date Date HYDROCODONE-A Take 1 tablet HYDROCODONE-ACETA 82825572888 Elroy V CETAMINOPHEN by mouth every 10 /17 MINOPHEN Demetri RODRIGUEZ 5-325 MG TABS 4-6 as needed for pain CYMBALTA 60 one tablet / DULOXETINE HCL 72805032186 Elroy V MG CPEP daily 12 Demetri RODRIGUEZ FUROSEMIDE 40 as needed / FUROSEMIDE 45576716870 Elroy V MG TABS 12 Demetri RODRIGUEZ ROPINIROLE takes 1 tablet / ROPINIROLE HCL 50524268699 Lulu HCL 1 MG TABS once daily 01 Yolanda AUDIO VISUAL AIDS DIRECTOR LOSARTAN takes 1 tablet / LOSARTAN 65320622807 Lulu POTASSIUM 100 once daily 01 POTASSIUM Yolanda AUDIO VISUAL AIDS DIRECTOR MG TABS XARELTO 20 MG takes 1 tablet / RIVAROXABAN 66354401099 Lulu TABS once daily 01 Yolanda AUDIO VISUAL AIDS DIRECTOR FLECAINIDE takes 1 tablet / FLECAINIDE 19784808147 Lulu ACETATE 100 twice daily 01 ACETATE Yolanda AUDIO VISUAL AIDS DIRECTOR MG TABS SYNTHROID 50 takes 1 tablet / LEVOTHYROXINE 14430161609 Lulu MCG TABS once daily 15 SODIUM Yolanda AUDIO VISUAL AIDS DIRECTOR METOPROLOL takes 1 tablet / METOPROLOL 17995483775 Lulu TARTRATE 50 once daily 15 TARTRATE Yolanda AUDIO VISUAL AIDS DIRECTOR MG TABS PREMARIN takes 1 tablet / ESTROGENS 66349565792 Lulu 0.625 MG TABS once daily 15 CONJUGATED Yolanda AUDIO VISUAL AIDS DIRECTOR VITAMIN D takes 1 capsule / ERGOCALCIFEROL 41131444903 (ERGOCALCIFER once a month 15 Yolanda AUDIO VISUAL AIDS DIRECTOR OL) [address] UNIT CAPS AMLODIPINE takes 1 tablet / AMLODIPINE 24942745748 BESYLATE 5 MG once daily 13 BESYLATE Yolanda AUDIO VISUAL AIDS DIRECTOR TABS Conditions or Problems Problem Name Problem Code Onset Status Entry Provider Comment Standard Annotate Date Date Description Osteoporosis 022600415 Active Elroy V Patient screening (SNOMED CT) 11/23 11/23 Taliwal encounter MD status Lumbar back 231681717 Active Elroy V Low back pain pain with (SNOMED CT) 11/23 11/23 Taliwal radiculopathy MD affecting left lower extremity History of 135932375 Active Elroy V History of lumbar (SNOMED CT) 11/23 11/23 Taliwal operative laminectomy MD procedure on L3-5 lumbar spinal structure History of 906383541766 Active Elroy V History of spinal fusion 07 (SNOMED 11/23 11/23 Taliwal spinal fusion L3-5 CT) MD Status post Z98.890 Active Elroy V Other specified lumbar (ICD-10-CM) 07/16 07/16 Taliwal postprocedural laminectomy MD states L3-4 Status post 731898637 Active Elroy V History of lumbar spinal (SNOMED CT) 05/13 05/13 Taliwal operative fusion L3-4-5 procedure on lumbar spinal structure Spinal 08586212 Active Elroy V Spinal stenosis stenosis of (SNOMED CT) 05/13 05/13 Taliwal of lumbar lumbar region region L3-4 Allergies, Adverse Reactions, Alerts Allergy Name Reaction Start Date Severity Status Provider Description RAGWEED sneezing Mild Active Elroy V Taliwal GRASS sneezing, runny Critical Active Elroy V nose Demetri RODRIGUEZ TREES sneezing Mild Active Elroy V Demetri RODRIGUEZ Social History No information available. Vital Signs Date Name Value Unit Description BMI (Body Mass 28.42 kg/m2 Body Mass Index Index) [Ratio] Preliminary vital sign data, not yet signed by the author as of BP Diastolic 75 mm[Hg] blood pressure, diastolic Preliminary vital sign data, not yet signed by the author as of BP Systolic 136 mm[Hg] blood pressure, systolic Preliminary vital sign data, not yet signed by the author as of Heart Rate 63 /min pulse rate E&M Preliminary vital sign data, not yet signed by the author as of Height 64 [in_us] height E&M Preliminary vital sign data, not yet signed by the author as of Height 163 cm height in centimeters E&M Preliminary vital sign data, not yet signed by the author as of Weight Measured 165 [lb_av] weight E&M Preliminary vital sign data, not yet signed by the author as of Weight Measured 75 kg weight in kilograms E&M Preliminary vital sign data, not yet signed by the author as of Results Date Name Value Unit Range Flag Description Office Visit: Test Result, Rm: 3 MEDS REVIEW Done Documentation of current medications (procedure) Preliminary observation data, not yet signed by the author as of Preliminary observation data, not yet signed by the author as of MRI HX of the Lumbar on MRI (magnetic 12/14/2017 at [facility] resonance imaging) history Preliminary observation data, not yet signed by the author as of XRAY HX of the Lumbar on xray history 11/23/2017 at [facility] Preliminary observation data, not yet signed by the author as of Clinical Summary: [facility]ID [facility] account number Procedures Code Procedure Name Date Entry Date CPT-96247 Physical Therapy G8730 Pain assessment documented as positive - follow-up documented G8427 Current medications documented 1036F Tobacco screening was negative - non user G8417 BMI documented as above normal parameters - follow-up documented G8783 Blood pressure within normal parameters - no follow-up required [facility]-[id number] Patient Encounter Medications Administered No information available. Immunizations No information available. Advance Directives There may be information available, but it has not been provided by the sender. Assessments There may be information available, but it has not been provided by the sender. Review of Systems There may be information available, but it has not been provided by the sender. Family History There may be information available, but it has not been provided by the sender. History of Past Illness There may be information available, but it has not been provided by the sender. History of Present Illness There may be information available, but it has not been provided by the sender.
== END ==
PROVIDERS: Family Provider Family Medicine Geriatric Medicine; PCP Family Medicine Geriatric Medicine; Referring Provider Family Medicine Geriatric Medicine; Visit Provider Family Medicine Geriatric Medicine
DX: I10 Essential (primary) hypertension (principal)
CPT/HCPCS: 36415; 80048; 85025

== ENCOUNTER → 2018-04-11 10:39 | Outpatient (CLI) | payer MEDICARE, OTHER, SELFPAY ==
[2018-04-03 12:55] VITALS: BMI 35.0
--- NOTE | 2018-04-11 10:43 | ECHOD_ITS ---
Reason For Study: DYSPNEA Procedure This was a 2D Doppler, Color Flow transthoracic echocardiogram. Exam performed in department. Left Ventricle Normal LV size. Left ventricular systolic function is normal. The estimated ejection fraction is 65 %. Stage 1 diastolic dysfunction. No regional wall motion abnormalities noted. Right Ventricle Normal RV size. Normal systolic function. Atria Normal left atrium. Normal right atrium. Mitral Valve Bileaflet diffuse mitral valve thickening. Mild (1+) eccentric mitral valve insufficiency. Tricuspid Valve Normal tricuspid valve. Mild (1+) tricuspid valve insufficiency. Pulmonary artery systolic pressure is 39 mmHg. Aortic Valve Normal aortic valve. Trisinus/trileaflet aortic valve. Pulmonic Valve Normal pulmonic valve. Great Vessels Normal aortic root. The pulmonary artery is normal size. Normal inferior vena cava. Pericardium/Pleural No pericardial effusion. MMode/2D Measurements & Calculations LVIDd: 4.8 cm IVSd: 0.97 cm Ao root diam: 2.8 cm LVIDs: 3.1 cm LVPWd: 1.0 cm RVDd: 3.5 cm FS: 35.4 % LAV(MOD-bp): 68.8 ml LVAd ap4: 28.0 cm2 SV(MOD-sp4): 50.4 ml LAV(MOD-bp) Indexed: 35.9 ml/m2 EDV(MOD-sp4): 88.0 ml LAV(MOD-sp2): 68.6 ml EDV(sp4-el): 92.6 ml LAV(MOD-sp4): 67.8 ml LVAs ap4: 16.1 cm2 ESV(MOD-sp4): 37.6 ml ESV(sp4-el): 39.6 ml EF(MOD-sp4): 57.3 % EF(sp4-el): 57.3 % SV(sp4-el): 53.0 ml LA A4 area: 22.7 cm2 LA dimension(2D): 4.4 cm RA A4 area: 15.1 cm2 Time Measurements MV dec time: 0.21 sec Doppler Measurements & Calculations MV E max miguel: 83.5 cm/sec Lat Peak E' Miguel: 7.7 cm/sec Med Peak E' Miguel: 6.3 cm/sec MV A max miguel: 105.0 cm/sec E/E' lat: 10.9 E/E' med: 13.2 MV E/A: 0.80 Ao V2 max: 122.0 cm/sec LV V1 max: 87.8 cm/sec PA V2 max: 101.2 cm/sec Ao max P.0 mmHg LV V1 max P.1 mmHg PI end-d miguel: 101.7 cm/sec TR max miguel: 291.4 cm/sec TR max P.0 mmHg Interpretation Summary Normal LV size. Left ventricular systolic function is normal. The estimated ejection fraction is 65 %. Stage 1 diastolic dysfunction. Mild (1+) tricuspid valve insufficiency. Ordering Physician: Shahab Farfan/Kahlil Hallman Referring Physician: MIGNON MALIK CHI Performed By: Esther Farah, RDCS, RVT
== END ==
PROVIDERS: Family Provider Family Medicine Geriatric Medicine; PCP Family Medicine Geriatric Medicine; Referring Provider Nurse Practitioner Family; Visit Provider Nurse Practitioner Family
DX: I10 Essential (primary) hypertension (principal); I48.0 Paroxysmal atrial fibrillation; Z98.890 Other specified postprocedural states
CPT/HCPCS: 93306

== ENCOUNTER → 2018-04-26 13:41 | Outpatient (CLI) | payer MEDICARE, OTHER, SELFPAY ==
[2018-04-03 12:55] VITALS: BMI 35.0
[2018-04-26 15:15] LABS: Absolute Lymphocyte Count 1.56 X10^3/ul (0.83-4.51); Basophil# 0.08 X10^3/uL; Basophil% 1.2 % (0-1); Eosinophil# 0.27 X10^3/uL; Eosinophils% 4.2 % (0-5); Hematocrit 42.6 % (37-47); Hemoglobin 13.1 g/dl (12.0-15.0); Lymphocyte # 1.56 X10^3/ul (4.0); Lymphocyte % 24.3 % (19-41); Mean Corp Hgb Conc 30.8 g/gl (32-36); Mean Corpuscular Hgb 24.7 pg (27.0-32.0); Mean Corpuscular Volume 80.4 fL (81-99); Monocyte# 0.54 X10^3/uL; Monocyte% 8.4 % (0-10); Neutrophil # 3.95 X10^3/uL (2.7-7.7); Neutrophil % 61.6 % (47-70); POSITIVE COUNT NO; POSITIVE DIFFERENTIAL NO; POSITIVE MORPHOLOGY NO; Platelet Count 312 K/mm3 (150-450); RBC Distribution Width CV 13.8 % (11.6-14.6); RBC Distribution Width SD 40.2 fl (35.1-43.9); White Blood Count 6.4 K/mm3 (4.4-11.0)
[2018-04-26 15:33] LABS: BUN 9 mg/dL (7-18); Creatinine, Serum 1.04 mg/dL (0.55-1.02); Glucose 90 mg/dL (74-106)
[2018-04-26 15:34] LABS: Anion Gap 11 (5-15); BUN/Creat Ratio 8.7 RATIO (10-20); Chloride 103 mmol/L (98-107); EST Glomerular Filtration Rate 56 mL/min (>60); Est Glom Filt Rate - Afr Amer 67 mL/min (>60); Magnesium 1.8 mg/dL (1.6-2.6); Potassium 3.8 mmol/L (3.5-5.1); Sodium Level 143 mmol/L (136-145)
== END ==
PROVIDERS: Family Provider Family Medicine Geriatric Medicine; PCP Family Medicine Geriatric Medicine; Referring Provider Nurse Practitioner Family; Visit Provider Nurse Practitioner Family
DX: I10 Essential (primary) hypertension (principal); I48.0 Paroxysmal atrial fibrillation; R42 Dizziness and giddiness
CPT/HCPCS: 36415; 80048; 83735; 85025

== ENCOUNTER → 2018-07-17 12:40 | Outpatient (CLI) | payer MEDICARE, OTHER, SELFPAY ==
[2018-06-01 13:54] VITALS: BMI 35.6
--- NOTE | 2018-07-17 12:45 | RAD_ITS ---
STUDY: X-RAY - LUMBAR SPINE REASON FOR EXAM: Female, 67 years old. Low back pain, previous surgery TECHNIQUE: 3 view(s) of the lumbar spine were obtained. COMPARISON: Previous study of 09/20/2016 FINDINGS: Normal lumbar lordosis. There is no substantial scoliosis. There is a normal alignment of the vertebrae. There is endplate spondylosis of L3-L5. A disc spacer is seen at the L3-4 level. There is narrowing of the L4-5 and L5-S1 disc spaces. There is status post laminectomy changes at L3-L5. The soft tissue structures are unremarkable. RAD/Lumbar Spine 2 or 3 Views IMPRESSION: Disc spacer present at the L3-4 level. Other degenerative changes as detailed above. There is no evidence of acute fracture or spondylolisthesis. Status post laminectomy changes at L3-L5. Findings appear similar to the previous study. Electronically Signed: Eyal Choi MD at 21:42 EDT , Service support ,
--- NOTE | 2018-07-17 12:46 | RAD_ITS ---
STUDY: X-RAY - THORACIC SPINE REASON FOR EXAM: Female, 67 years old. Low back pain, previous surgery TECHNIQUE: 3 view(s) of the thoracic spine were obtained. COMPARISON: None. FINDINGS: Normal kyphosis of the thoracic spine. There is no substantial scoliosis. There is multilevel endplate spondylosis of the thoracic vertebrae. There is multilevel disc space narrowing of the thoracic spine. The soft tissue structures are unremarkable. RAD/Thoracic Spine 3 Views IMPRESSION: Thoracic degenerative changes. Electronically Signed: Eyal Choi MD at 21:40 EDT , Service support ,
== END ==
PROVIDERS: Family Provider Family Medicine Geriatric Medicine; PCP Family Medicine Geriatric Medicine; Referring Provider Family Medicine Geriatric Medicine; Visit Provider Family Medicine Geriatric Medicine
DX: M54.5 Low back pain (principal)
CPT/HCPCS: 72072; 72100

== ENCOUNTER → 2018-07-20 16:38 | Outpatient (CLI) | payer MEDICARE, OTHER, SELFPAY ==
[2018-06-01 13:54] VITALS: BMI 35.6
[2018-07-20 17:29] LABS: Absolute Lymphocyte Count 1.62 X10^3/ul (0.83-4.51); Absolute Neutrophil Count 3.3 X10^3/uL (2.0-7.7); Basophil# 0.06 X10^3/uL; Eosinophil# 0.26 X10^3/uL; Eosinophils% 4.4 % (0-5); Hematocrit 38.1 % (37-47); Lymphocyte # 1.62 X10^3/ul (4.0); Lymphocyte % 27.4 % (19-41); Mean Corp Hgb Conc 31.5 g/gl (32-36); Mean Corpuscular Hgb 24.1 pg (27.0-32.0); Mean Corpuscular Volume 76.7 fL (81-99); Mean Platelet Vol. 11.8 fl (6.2-12.0); Monocyte% 10.2 % (0-10); Neutrophil # 3.31 X10^3/uL (2.7-7.7); Platelet Count 249 K/mm3 (150-450); RBC Distribution Width CV 13.7 % (11.6-14.6); RBC Distribution Width SD 37.4 fl (35.1-43.9); Red Blood Count 4.97 M/mm3 (4.2-5.4); White Blood Count 5.9 K/mm3 (4.4-11.0)
[2018-07-20 17:35] LABS: POSITIVE COUNT NO; POSITIVE DIFFERENTIAL NO; POSITIVE MORPHOLOGY NO
[2018-07-20 18:09] LABS: Vitamin D,25 Hydroxy 69.2 ng/mL (29.95-100.01)
[2018-07-20 18:20] LABS: ALB/GLOB Ratio 1.2 RATIO (0.9-2.4); AST(SGOT) 17 U/L (15-37); Alanine Aminotransfer ALT/SGPT 29 U/L (13-56); Albumin, Serum 3.5 g/dL (3.2-5.0); Alkaline Phosphatase 70 U/L (45-117); Anion Gap 6 (5-15); BUN 16 mg/dL (7-18); BUN/Creat Ratio 15.4 RATIO (10-20); Calcium,Total 8.2 mg/dL (8.5-10.1); Chloride 101 mmol/L (98-107); Creatinine, Serum 1.04 mg/dL (0.55-1.02); EST Glomerular Filtration Rate 56 mL/min (>60); Est Glom Filt Rate - Afr Amer 67 mL/min (>60); Globulin 2.9 g/dL (2.2-4.2); Glucose 83 mg/dL (74-106); Potassium 3.8 mmol/L (3.5-5.1); Protein, Total 6.4 g/dL (6.4-8.2); Sodium Level 138 mmol/L (136-145); Thyroid Stim Hormone (TSH) 1.58 uIU/mL (0.358-3.74)
== END ==
PROVIDERS: Family Provider Family Medicine Geriatric Medicine; PCP Family Medicine Geriatric Medicine; Visit Provider Family Medicine Geriatric Medicine
DX: E11.9 Type 2 diabetes mellitus without complications (principal); E55.9 Vitamin D deficiency, unspecified; I10 Essential (primary) hypertension
CPT/HCPCS: 36415; 80053; 82306; 84443; 85025

== ENCOUNTER → 2018-08-15 08:53 | Outpatient (CLI) | payer MEDICARE, OTHER, SELFPAY ==
[2018-06-01 13:54] VITALS: BMI 35.6
--- NOTE | 2018-08-15 08:55 | RDU_ITS ---
Reason For Study: HTN Right Renal Artery Left Renal Artery Right renal artery ostium 83.8/20.2 Left renal artery ostium 169.0/31.6 RSV/EDV. PSV/EDV. Right renal artery proximal Left renal artery proximal PSV/EDV 147/26.8 PSV/EDV. 143.1/31.6 . Right renal artery mid 149.6/22.4 Left renal artery mid 145.6/29.0 PSV/EDV. PSV/EDV . Right renal artery distal Left renal artery distal 171.6/23.8 114.5/26.8 PSV/EDV. PSV/EDV. Right RAR 1.9. Left RAR 2.2. Right Renal Parenchyma Left Renal Parenchyma Upper Pole Medula 18.9/9.0 PSV/EDV. Left upper pole medulla 43.0/13.2 Right upper pole medulla EDR .48 . PSV/EDV . Right upper pole medulla R.I. .52 . Left upper pole medulla EDR .31 . Upper [place] Cortx 26.5/7.9 PSV/EDV. Left upper pole medulla R.I. .69 . Right upper pole cortex EDR .3 . UP Cortex 37.8/10.6 PSV/EDV. Right upper pole cortex R.I. .7 . Left upper pole cortex EDR .28 . Right lower Pole medulla 38.6/9.0 Left upper pole cortex R.I. .72 . PSV/EDV . Left lower Pole medulla 26.2/9.3 Right lower pole medulla EDR .23 . PSV/EDV . Right lower pole medulla R.I. .77 . Left lower pole medulla EDR .36 . Lower Pole Cortex 23.9/8.4 PSV/EDV. Left lower pole medulla R.I. .64 . Right lower pole cortex EDR .35 . Lower Pole Cortx 29.0/6.9 PSV/EDV. Right lower pole cortex R.I. .65 . Left lower pole cortex EDR .24 . Right Renal Hilar Left lower pole cortex R.I. .76 . Right Hilar avg 44.1/10.1 PSV/EDV. Left Renal Hilar Right hilar acceleration time 50 LT Hilar avg 67.6/11.9 PSV/EDV . m/sec. Left hilar acceleration time 60 Right Renal Dimensions m/sec. Right kidney size 11.0 cm . Left Renal Dimensions Right cortical dimension 1.41 cm . Left kidney size 10.73 cm . Left cortical dimension 1.64 cm . Aorta Proximal abdominal aorta 1.3 x 1.3 cm . Proximal abdominal aorta peak systolic velocity is 77.3 cm/sec . Distal abdominal aorta 1.287 x 1.34 cm . Distal abdominal aorta peak systolic velocity is 123.3 cm/sec . Normal renal veins bilat. Interpretation Summary 1. bilateral renal arteries with <60% stenosis. Ordering Physician: Shahab Farfan Performed By: Mike Acevedo RVAlaina
== END ==
PROVIDERS: Family Provider Family Medicine Geriatric Medicine; PCP Family Medicine Geriatric Medicine; Referring Provider Nurse Practitioner Family; Visit Provider Nurse Practitioner Family
DX: I10 Essential (primary) hypertension (principal); E11.9 Type 2 diabetes mellitus without complications
CPT/HCPCS: 93975

== ENCOUNTER → 2018-08-16 12:51 | Outpatient (CLI) | payer MEDICARE, OTHER, SELFPAY ==
[2018-06-01 13:54] VITALS: BMI 35.6
--- NOTE | 2018-08-16 12:54 | BI_ITS ---
MAMMOGRAPHY - BILATERAL SCREENING REASON FOR EXAM: Female, 68 years old. Routine annual screening examination. PERTINENT HISTORY: Mother with breast cancer. Aunt with breast cancer. TECHNIQUE: Digital bilateral breast denice (3D mammographic acquisition) in the CC and MLO projections. 2-D mediolateral oblique (MLO) and craniocaudad (CC) views of both breasts were obtained. CAD: Full Field Digital Mammography with Computer Added Detection was performed. COMPARISON: Comparison is made with prior study dated July 27, 2016 and May 22, 2015. FINDINGS: Breast Composition: There are scattered areas of fibroglandular density. There are no dominant masses or suspicious calcifications. Scattered small benign-appearing bilateral axillary lymph nodes. No other significant abnormalities are identified. There has been no significant change since the prior study. BI/SCREEN MAMM (CAD) W/DENICE BILAT IMPRESSION: Stable bilateral screening mammogram. Yearly follow-up mammogram recommended. (A) ASSESSMENT CATEGORY: BIRADS Category 2: Benign. A letter regarding these results will be sent to the patient by the facility within 30 days. Approximately 10% of breast cancers are not detected by mammography. A normal mammogram should not delay biopsy of a clinically suspicious abnormality. [id number] Electronically Signed: Neil Rosario, at 14:40 EDT , Service support ,
== END ==
PROVIDERS: Family Provider Family Medicine Geriatric Medicine; PCP Family Medicine Geriatric Medicine; Referring Provider Family Medicine Geriatric Medicine; Visit Provider Family Medicine Geriatric Medicine
DX: Z12.31 Encounter for screening mammogram for malignant neoplasm of breast (principal); Z80.3 Family history of malignant neoplasm of breast
CPT/HCPCS: 77063; 77067

== ENCOUNTER → 2018-10-03 14:17 | Outpatient (CLI) | payer MEDICARE, OTHER, SELFPAY ==
[2018-09-08 12:21] VITALS: BMI 35.6
[2018-10-03 16:33] LABS: AST(SGOT) 17 U/L (15-37); Alanine Aminotransfer ALT/SGPT 23 U/L (13-56); Albumin, Serum 3.2 g/dL (3.2-5.0); Alkaline Phosphatase 73 U/L (45-117); Anion Gap 6 (5-15); BUN 15 mg/dL (7-18); Calcium,Total 8.4 mg/dL (8.5-10.1); Chloride 103 mmol/L (98-107); EST Glomerular Filtration Rate 58 mL/min (>60); Est Glom Filt Rate - Afr Amer 71 mL/min (>60); Globulin 3.1 g/dL (2.2-4.2); Glucose 99 mg/dL (74-106); Potassium 3.4 mmol/L (3.5-5.1); Protein, Total 6.3 g/dL (6.4-8.2); Sodium Level 141 mmol/L (136-145); Thyroid Stim Hormone (TSH) 1.02 uIU/mL (0.358-3.74)
== END ==
PROVIDERS: Family Provider Family Medicine Geriatric Medicine; PCP Family Medicine Geriatric Medicine; Referring Provider Internal Medicine Endocrinology, Diabetes & Metabolism; Visit Provider Internal Medicine Endocrinology, Diabetes & Metabolism
DX: E03.8 Other specified hypothyroidism (principal)
CPT/HCPCS: 36415; 80053; 84443

== ENCOUNTER → 2018-12-28 15:52 | Outpatient (CLI) | payer MEDICARE, OTHER, SELFPAY ==
[2018-10-23 11:07] VITALS: BMI 36.0
== END ==
PROVIDERS: Family Provider Family Medicine Geriatric Medicine; PCP Family Medicine Geriatric Medicine; Referring Provider Family Medicine Geriatric Medicine; Visit Provider Family Medicine Geriatric Medicine
DX: R68.83 Chills (without fever) (principal)
CPT/HCPCS: 87633

== ENCOUNTER → 2019-01-03 16:54 | Outpatient (CLI) | payer MEDICARE, OTHER, SELFPAY ==
[2018-10-23 11:07] VITALS: BMI 36.0
--- NOTE | 2019-01-03 16:56 | RAD_ITS ---
STUDY: X-RAY CHEST REASON FOR EXAM: Female, 68 years old. Cough, shortness of breath TECHNIQUE: Frontal and lateral views COMPARISON: November 25, 2014 FINDINGS: The lungs are clear and expanded. There is no demonstrated pleural abnormality. Normal size heart. Normal mediastinum and escobar. Normal visualized pulmonary arteries. Normal visualized aortic arch and descending thoracic aorta. Minimal degenerative changes of the thoracic spine. Normal visualized ribs, clavicles, and shoulders. There is no demonstrated abnormality of the visualized soft tissue structures of the upper abdomen. RAD/Chest PA and Lateral IMPRESSION: Normal x-ray examination of the chest. Electronically Signed: James Quinones DO at 0:04 EDT Tel [phone], Service support ,
== END ==
PROVIDERS: Family Provider Family Medicine Geriatric Medicine; PCP Family Medicine Geriatric Medicine; Referring Provider Family Medicine Geriatric Medicine; Visit Provider Family Medicine Geriatric Medicine
DX: R05 Cough (principal)
CPT/HCPCS: 71046

== ENCOUNTER → 2019-01-23 13:42 | Outpatient (CLI) | payer MEDICARE, OTHER, SELFPAY ==
[2018-10-23 11:07] VITALS: BMI 36.0
[2019-01-23 15:48] LABS: Absolute Lymphocyte Count 1.57 X10^3/uL (0.83-4.51); Absolute Neutrophil Count 4.6 X10^3/uL (2.0-7.7); Basophil# 0.06 X10^3/uL; Basophil% 0.8 % (0-1); Eosinophil# 0.27 X10^3/uL; Eosinophils% 3.8 % (0-5); Hematocrit 40.4 % (37-47); Hemoglobin 12.7 g/dL (12.0-15.0); Lymphocyte # 1.57 X10^3/ul (4.0); Mean Corp Hgb Conc 31.4 g/dL (32-36); Mean Corpuscular Hgb 24.3 pg (27.0-32.0); Mean Corpuscular Volume 77.4 fL (81-99); Monocyte# 0.61 X10^3/uL; Monocyte% 8.6 % (0-10); NRBC Flagged by Analyzer 0 % (0-5); Neutrophil # 4.58 X10^3/uL (2.7-7.7); Neutrophil % 64.2 % (47-70); Platelet Count 308 K/mm3 (150-450); RBC Distribution Width CV 13.6 % (11.6-14.6); RBC Distribution Width SD 38.1 fl (35.1-43.9); Red Blood Count 5.22 M/mm3 (4.2-5.4); White Blood Count 7.1 K/mm3 (4.4-11.0)
[2019-01-23 16:05] LABS: Vitamin D,25 Hydroxy 57.5 ng/mL (29.95-100.01)
[2019-01-23 16:32] LABS: AST(SGOT) 15 U/L (15-37); Alanine Aminotransfer ALT/SGPT 33 U/L (13-56); Albumin, Serum 3.3 g/dL (3.2-5.0); Alkaline Phosphatase 65 U/L (45-117); Anion Gap 5 (5-15); BUN 18 mg/dL (7-18); BUN/Creat Ratio 16.7 RATIO (10-20); Calcium,Total 8.7 mg/dL (8.5-10.1); Chloride 100 mmol/L (98-107); Creatinine, Serum 1.08 mg/dL (0.55-1.02); EST Glomerular Filtration Rate 53 mL/min (>60); Est Glom Filt Rate - Afr Amer 64 mL/min (>60); Globulin 3.2 g/dL (2.2-4.2); Glucose 90 mg/dL (74-106); Potassium 4.1 mmol/L (3.5-5.1); Protein, Total 6.5 g/dL (6.4-8.2); Sodium Level 136 mmol/L (136-145); Thyroid Stim Hormone (TSH) 0.86 uIU/mL (0.358-3.74)
== END ==
PROVIDERS: Family Provider Family Medicine Geriatric Medicine; PCP Family Medicine Geriatric Medicine; Visit Provider Family Medicine Geriatric Medicine
DX: E11.9 Type 2 diabetes mellitus without complications (principal); E55.9 Vitamin D deficiency, unspecified; I10 Essential (primary) hypertension
CPT/HCPCS: 36415; 80053; 82306; 84443; 85025

== ENCOUNTER → 2019-04-05 14:19 | Outpatient (CLI) | payer MEDICARE, OTHER, SELFPAY ==
[2018-10-23 11:07] VITALS: BMI 36.0
[2019-04-05 16:24] LABS: Thyroid Stim Hormone (TSH) 1.49 uIU/mL (0.358-3.74)
== END ==
PROVIDERS: PCP Family Medicine Geriatric Medicine; Referring Provider Internal Medicine Endocrinology, Diabetes & Metabolism; Visit Provider Internal Medicine Endocrinology, Diabetes & Metabolism
DX: E03.8 Other specified hypothyroidism (principal)
CPT/HCPCS: 36415; 84443

== ENCOUNTER → 2019-05-08 15:49 | Outpatient (CLI) | payer MEDICARE, OTHER, SELFPAY ==
[2018-10-23 11:07] VITALS: BMI 36.0
--- NOTE | 2019-05-08 16:00 | RAD_ITS ---
STUDY: X-RAY - LUMBAR SPINE REASON FOR EXAM: Female, 68 years old. Fall 1.5 weeks ago. Low back pain. Hx of 4 low back surgeries. TECHNIQUE: 3 view(s) of the lumbar spine were obtained. COMPARISON: 07/17/2018 FINDINGS: Normal lumbar lordosis. There is no substantial scoliosis. Status post interbody cage fusion at L3/L4 with anatomic alignment. Normal vertebral bodies and endplates. Normal disc space heights. The soft tissue structures are unremarkable. RAD/Lumbar Spine 2 or 3 Views IMPRESSION: No acute fracture or subluxation. Electronically Signed: Héctor Perez MD at 9:04 EST Tel , Service support ,
--- NOTE | 2019-05-08 16:00 | RAD_ITS ---
STUDY: X-RAY - LEFT KNEE REASON FOR EXAM: Female, 68 years old. Fall 1.5 weeks ago. Left lateral knee pain. TECHNIQUE: 4 view(s) of the knee. COMPARISON: None. FINDINGS: Normal visualized distal femur. Normal visualized proximal tibia and fibula. Normal proximal tibiofibular articulation. Normal medial femorotibial compartment. Normal lateral femorotibial compartment. Normal patellofemoral articulation. The soft tissue structures are unremarkable. RAD/Knee 4 or More Views IMPRESSION: Normal x-ray examination of the knee. Electronically Signed: Héctor Perez MD at 9:07 EST Tel , Service support ,
== END ==
PROVIDERS: PCP Family Medicine Geriatric Medicine; Referring Provider Family Medicine Geriatric Medicine; Visit Provider Family Medicine Geriatric Medicine
DX: M54.5 Low back pain (principal); M25.569 Pain in unspecified knee
CPT/HCPCS: 72100; 73564

== ENCOUNTER → 2019-07-24 13:46 | Outpatient (CLI) | payer MEDICARE, OTHER, SELFPAY ==
[2018-10-23 11:07] VITALS: BMI 36.0
[2019-07-24 14:56] LABS: Absolute Lymphocyte Count 1.66 X10^3/uL (0.83-4.51); Absolute Neutrophil Count 4.9 X10^3/uL (2.0-7.7); Basophil# 0.07 X10^3/uL; Basophil% 0.9 % (0-1); Eosinophil# 0.25 X10^3/uL; Eosinophils% 3.3 % (0-5); Hematocrit 40.3 % (37-47); Hemoglobin 12.6 g/dL (12.0-15.0); Lymphocyte # 1.66 X10^3/ul (4.0); Lymphocyte % 22.2 % (19-41); Mean Corp Hgb Conc 31.3 g/dL (32-36); Mean Corpuscular Hgb 24.5 pg (27.0-32.0); Mean Corpuscular Volume 78.4 fL (81-99); Monocyte# 0.52 X10^3/uL; NRBC Flagged by Analyzer 0 % (0-5); Neutrophil # 4.94 X10^3/uL (2.7-7.7); Neutrophil % 66.1 % (47-70); Platelet Count 307 K/mm3 (150-450); RBC Distribution Width CV 13.4 % (11.6-14.6); RBC Distribution Width SD 38.2 fl (35.1-43.9); Red Blood Count 5.14 M/mm3 (4.2-5.4); White Blood Count 7.5 K/mm3 (4.4-11.0)
[2019-07-24 15:09] LABS: Vitamin D,25 Hydroxy 66.5 ng/mL
[2019-07-24 15:18] LABS: AST(SGOT) 15 U/L (15-37); Alanine Aminotransfer ALT/SGPT 29 U/L (13-56); Albumin, Serum 3.3 g/dL (3.2-5.0); Alkaline Phosphatase 62 U/L (45-117); Anion Gap 6 (5-15); BUN 13 mg/dL (7-18); BUN/Creat Ratio 12.1 RATIO (10-20); Calcium,Total 8.6 mg/dL (8.5-10.1); Chloride 103 mmol/L (98-107); Creatinine, Serum 1.07 mg/dL (0.55-1.02); EST Glomerular Filtration Rate 54 mL/min (>60); Est Glom Filt Rate - Afr Amer 65 mL/min (>60); Globulin 3.3 g/dL (2.2-4.2); Glucose 99 mg/dL (74-106); Potassium 3.7 mmol/L (3.5-5.1); Protein, Total 6.6 g/dL (6.4-8.2); Sodium Level 139 mmol/L (136-145); Thyroid Stim Hormone (TSH) 1.69 uIU/mL (0.358-3.74)
== END ==
PROVIDERS: PCP Family Medicine Geriatric Medicine; Visit Provider Family Medicine Geriatric Medicine
DX: E55.9 Vitamin D deficiency, unspecified (principal); I10 Essential (primary) hypertension
CPT/HCPCS: 36415; 80053; 82306; 84443; 85025

== ENCOUNTER → 2019-09-24 14:26 | Outpatient (CLI) | payer MEDICARE, OTHER, SELFPAY ==
[2019-07-25 11:36] VITALS: BMI 35.3
--- NOTE | 2019-09-24 14:31 | RAD_ITS ---
STUDY: X-RAY - UNILATERAL RIBS ( RIGHT ) WITH CHEST REASON FOR EXAM: Female, 69 years old. FALL, LOW RIGHT SIDE ANTERIORLY TECHNIQUE - RIBS: 4 view(s) of the ribs. TECHNIQUE - CHEST: Single PA view of the chest. COMPARISON: 01/03/2019 FINDINGS - RIBS: Normal visualized ribs without a demonstrated fracture. FINDINGS - CHEST: The lungs are clear and expanded. There is no demonstrated pleural abnormality. Normal size heart. Normal mediastinum and escobar. Normal visualized pulmonary arteries. Normal visualized aortic arch and descending thoracic aorta. Normal visualized thoracic spine. Normal visualized ribs, clavicles, and shoulders. There is no demonstrated abnormality of the visualized soft tissue structures of the upper abdomen. RAD/Ribs Uni Min 3V w/PA Chest IMPRESSION: RIBS: Normal x-ray examination of the ribs. CHEST: Normal x-ray examination of the chest. Electronically Signed: Christ Morse MD at 10:22 EDT , Service support ,
== END ==
PROVIDERS: PCP Family Medicine Geriatric Medicine; Referring Provider Family Medicine Geriatric Medicine; Visit Provider Family Medicine Geriatric Medicine
DX: R07.89 Other chest pain (principal)
CPT/HCPCS: 71101

== ENCOUNTER → 2019-09-28 14:50 | Outpatient (CLI) | payer MEDICARE, OTHER, SELFPAY ==
[2019-07-25 11:36] VITALS: BMI 35.3
[2019-09-28 17:20] LABS: Thyroid Stim Hormone (TSH) 1.54 uIU/mL (0.358-3.74)
== END ==
PROVIDERS: PCP Family Medicine Geriatric Medicine; Referring Provider Internal Medicine Endocrinology, Diabetes & Metabolism; Visit Provider Internal Medicine Endocrinology, Diabetes & Metabolism
DX: E03.8 Other specified hypothyroidism (principal)
CPT/HCPCS: 36415; 84443

== ENCOUNTER 2019-10-10 15:11 | Inpatient (IN) | payer MEDICARE, OTHER, SELFPAY ==
[2019-07-25 11:36] VITALS: BMI 35.3
[2019-10-10] VITALS (11 sets, daily range): BP systolic 198–239; BP diastolic 78–94; PULSE 60–76; RESP 11–18; TEMP 36.4–36.9; O2SAT 95–99; BMI 37.0; BMI 35.8; BMI 33.6
--- NOTE | 2019-10-10 15:12 | CT_ITS ---
We are attempting to reach an attending provider to discuss findings. An addendum with communication details will be sent when the communication is complete. STUDY: CT BRAIN WITHOUT CONTRAST REASON FOR EXAM: Female, 69 years old. STROKE RADIATION DOSAGE (If Supplied By Facility): CTDIvol = ( 44.99 ) mGy, DLP = ( 745.49 ) mGycm TECHNIQUE: Transaxial CT imaging of the brain was performed without administration of intravenous contrast material. Individualized dose optimization techniques were used for this CT. COMPARISON: No relevant priors. FINDINGS: Normal soft tissue structures. Normal calvarium. There is mild cerebral atrophy with widening of the extra-axial spaces and ventricular dilatation. There are areas of decreased attenuation within the white matter tracts of the supratentorial brain, consistent with microvascular disease changes. Findings suggest mild encephalomalacia in the posterior right parietal and left temporal lobes. Old lacunar infarct in the insular cortex of the left temporal lobe. Normal brainstem. Normal cerebellum. There is no intracranial hemorrhage. There are no findings of an acute ischemic infarction. Atherosclerotic calcification of the cavernous portions of the internal carotid arteries bilaterally. Normal visualized paranasal sinuses. CT/Brain/Head without Contrast IMPRESSION: Chronic involutional changes of the brain. Electronically Signed: Neil Rosario, at 15:25 EDT , Service support ,
--- NOTE | 2019-10-10 15:12 | EKG12_ITS ---
Test Reason : Blood Pressure : / mmHG Vent. Rate : 070 BPM Atrial Rate : 070 BPM P-R Int : 164 ms QRS Dur : 094 ms QT Int : 432 ms P-R-T Axes : 067 029 040 degrees QTc Int : 466 ms Normal sinus rhythm Inferior infarct , age undetermined Abnormal ECG When compared with ECG of 10-OCT-2019 15:22, MANUAL COMPARISON REQUIRED, DATA IS UNCONFIRMED Confirmed by JOE RODRIGUEZ, SURESH ([id number]), clinical editor TISH HOLLIDAY ([id number]) on 10/15/2019 2:16:46 PM Referred By: CYNTHIA Confirmed By:JOCY DIAZ MD
--- NOTE | 2019-10-10 15:15 | CM.ED ---
SOCIAL WORK Responded to Stroke Alert. Patient in CT. in room with nursing answering questions. This worker to remain available for needs. Carlee Hastings, DATA WAREHOUSING SPECIALIST, PROFESSIONAL BUILDER
--- NOTE | 2019-10-10 15:16 | ED.DCSUM_ITS ---
History of Present Illness Chief Complaint: Neuro S/Sx Informant: Patient Onset: Today Narrative: Patient presents secondary to dropping things with her left arm. She states symptoms started about a half an hour prior to presentation. She does report having a headache as well. Patient is on Xarelto secondary to history of A. fib. Stroke alert was called when patient arrived to the ER. - Past Medical History (1) Hypothyroid Status: Chronic (2) Paroxysmal atrial fibrillation Status: Chronic (3) Essential (primary) hypertension Status: Chronic (4) Hyperlipidemia Status: Chronic Past Medical History - Allergies and Home Meds Allergies/Adverse Reactions: Allergies doxazosin [From Cardura] Allergy (Intermediate, Verified 10/23/18 11:08) difficulty breathing, fatigue amlodipine besylate [From Norvasc] Adverse Reaction (Intermediate, Verified 10/23/18 11:08) Edema in legs (known side effect of Amlodipine) hydrochlorothiazide Adverse Reaction (Intermediate, Verified 10/23/18 11:08) Doesn't feel good unable to urinate Primary Care Physician: Alphonso May Chi, MD [Primary Care Provider] - Prior records reviewed: Yes Surgical History: - - Back surgery x3, hysterectomy, appendectomy, T+A. Lives: Spouse/ Significant Other Smoking Status: Never smoker - Family History Maternal Family History: Family History (Last Reviewed 07/25/19 @ 11:[address] Kahlil Hallman MD) Father unknown health history Mother Breast cancer Brother Atrial fibrillation Brother Kidney disease Family History: Reports: No pertinent history Review of Systems General: Denies: Chills, Fever Eyes: Denies: Visual changes - bilaterally ENT: Denies: Bilateral ear pain Cardiovascular: Denies: Chest pain Respiratory: Denies: Dyspnea Gastrointestinal: Denies: Abdominal pain, Nausea, Vomiting, Diarrhea Genitourinary: Denies: Dysuria Musculoskeletal: Denies: Extremity Pain Skin: Denies: Rash Neurological: Reports: Headache, Weakness Physical Exam Vital Signs/Narrative: Vital Signs Temp Pulse Resp BP Pulse Ox 10/10/19 15:12 98.5 F 67 18 230/94 H 98 Inital Vital Signs reviewed: Yes General: Well nourished, Well developed Head: Normocephalic ENT: Moist mucous membranes Neck: Supple Cardiovascular: Regular rate, Regular rhythm Respiratory: No distress, CTA bilaterally Abdomen: Soft, Nontender Extremities: Nontender Skin: Normal color Neurological: Alert, Oriented x3, - - NIH equals 0 at the time of my examination. There is no drift of her left arm. Sensation is equal when eb red to right. Diagnostic/Tx/Re-eval Impressions Brain CT 10/10/19 15:12 IMPRESSION: Chronic involutional changes of the brain. Electronically Signed: Neil Rosario, at 15:25 EDT , Service support , ADDENDUM: 10/10/19 1533 IMPRESSION: Chronic involutional changes of the brain. N.B. : The above information has been verbally conveyed by Neil Rosario to Adwoa Wangine on 10/10/2019 15:26:48 (ET). Electronically Signed: Neil Rosario, at 15:25 EDT , Service support , Head/Neck CTA 10/10/19 15:39 IMPRESSION: Normal CTA Head and neck with contrast. Electronically Signed: Héctor Perez MD at 16:17 EDT Tel , Service support , Chest X-Ray 10/10/19 15:53 IMPRESSION: Normal x-ray examination of the chest. Electronically Signed: Héctor Perez MD at 16:10 EDT Tel , Service support , 10/10/19 15:12 Brain/Head without Contrast [CT] Stat 10/10/19 15:39 CTA Head AND Neck W/ Contrast [CT] Stat 10/10/19 15:53 Chest 1 View [RAD] Stat Laboratory Results 10/10/19 10/10/19 10/10/19 15:14 15:14 15:14 WBC 11.2 H RBC 5.42 H Hgb 13.4 Hct 43.2 MCV 79.7 L MCH 24.7 L MCHC 31.0 L RDW Std Deviation 39.0 RDW Coeff of Luis 13.8 Plt Count 355 MPV 10.5 Immature Gran % (Auto) 0.400 Neut % (Auto) 73.9 H Lymph % (Auto) 16.3 L [place] % (Auto) 6.7 Eos % (Auto) 1.8 Baso % (Auto) 0.9 Absolute Neuts (auto) 8.3 H Absolute Lymphs (auto) 1.83 Nucleated RBC % 0 PT 15.3 H INR 1.3 APTT 32.2 Sodium 137 Potassium 4.0 Chloride 104 Carbon Dioxide 30.0 Anion Gap 3 L BUN 17 Creatinine 1.02 Estim Creat Clear Calc 43.68 Est GFR (MDRD) Af Amer 69 Est GFR (MDRD) Non-Af 57 L BUN/Creatinine Ratio 16.7 Glucose 101 Calcium 8.8 Troponin I 0.057 H - EKG Initial EKG Interpretation: Sinus Rhythm - Sinus at 65. No acute ischemia. - Medical Decision Making Stroke alert was called on patient's arrival secondary to her complaints. Initial NIH for me was 0. She was evaluated by neurology at [facility]. It was felt that as long as the CTAs were negative she could remain here for further work-up. At this time patient has been given Zofran, Benadryl, and Tylenol for headache. Blood pressure remains quite elevated. She will be given 10 mg of IV labetalol. I advised her that I do not want to bring her blood pressure down too quickly as she states it is been high for quite some time. She states last evening it was running 190s over 106. While we do want her blood pressure did remain elevated if she did truly have a TIA, I certainly feel that she may have hypertensive urgency causing her headache and symptoms. Patient be discussed with hospitalist for further treatment and evaluation. ED Disposition - Plan for ED Patient: Disposition: Acute Care Hospital [facility] Diagnosis: Hypertensive urgency, TIA (transient ischemic attack) Referrals: Alphonso Mya Chi, MD [Primary Care Provider] -
[2019-10-10 15:22] LABS: Absolute Lymphocyte Count 1.83 X10^3/uL (0.83-4.51); Absolute Neutrophil Count 8.3 X10^3/uL (2.0-7.7); Basophil% 0.9 % (0-1); Eosinophils% 1.8 % (0-5); Hematocrit 43.2 % (37-47); Hemoglobin 13.4 g/dL (12.0-15.0); Lymphocyte # 1.83 X10^3/ul (4.0); Lymphocyte % 16.3 % (19-41); Mean Corpuscular Hgb 24.7 pg (27.0-32.0); Mean Corpuscular Volume 79.7 fL (81-99); Mean Platelet Vol. 10.5 fl (6.2-12.0); Monocyte# 0.75 X10^3/uL; Monocyte% 6.7 % (0-10); NRBC Flagged by Analyzer 0 % (0-5); Neutrophil # 8.31 X10^3/uL (2.7-7.7); Neutrophil % 73.9 % (47-70); Platelet Count 355 K/mm3 (150-450); RBC Distribution Width CV 13.8 % (11.6-14.6); Red Blood Count 5.42 M/mm3 (4.2-5.4); White Blood Count 11.2 K/mm3 (4.4-11.0)
[2019-10-10 15:31] LABS: International Normalized Ratio 1.3; Partial Thromboplast Time 32.2 Seconds (24.1-36.2); Prothrombin Time (Protime)PT. 15.3 SECONDS (11.7-14.9)
--- NOTE | 2019-10-10 15:39 | CT_ITS ---
We are attempting to reach an attending provider to discuss findings. An addendum with communication details will be sent when the communication is complete. STUDY: CTA HEAD AND NECK WITH CONTRAST REASON FOR EXAM: Female, 69 years old. ACUTE NEUROLOGIC DEFICIT, CONCERN FOR STROKE RADIATION DOSAGE (If Supplied By Facility): CTDIvol = ( 24.77 ) mGy, DLP = ( 767.45 ) mGycm TECHNIQUE: CT angiography was performed with a multi-detector CT scanner. Data acquisition was obtained from the skull base through the vertex following intravenous administration of 100ML ISOVUE 370. MIP images were reconstructed from the axial data set. Post-processing of the angiographic images was performed, with multiplanar reformation and 3D reconstruction. Individualized dose optimization techniques were used for this CT. COMPARISON: No relevant priors. FINDINGS: Normal bilateral petrous carotid arteries. Normal right cavernous carotid artery with a normal supraclinoid bifurcation. Normal left cavernous carotid artery with a normal supraclinoid bifurcation. Normal right A1 segments of the anterior cerebral artery. Normal left A1 segments of the anterior cerebral artery. Normal intact anterior communicating artery (ACOM). Normal bilateral A2 segments of the anterior cerebral arteries. Normal right M1 and M2 segments of the middle cerebral arteries, with a normal M1 bifurcation. Normal left M1 and M2 segments of the middle cerebral arteries, with a normal M1 bifurcation. Normal right posterior communicating artery (PCOM). Normal left posterior communicating artery (PCOM). Normal bilateral vertebral arteries. Normal basilar artery with a normal basilar bifurcation. The visualized bilateral superior cerebellar (SCA) arteries are normal. Normal bilateral P1, P2 and visualized P3 segments of the posterior cerebral arteries. There is no demonstrated aneurysm of the [place] of [place]. There is no demonstrated abnormality of the visualized brain. AORTIC ARCH: Normal visualized aortic arch. Normal origins of the brachiocephalic, left common carotid, and left subclavian arteries. RIGHT CAROTID ARTERIES: Normal right common carotid artery (CCA). There is mild atherosclerotic plaque formation with minimal narrowing of the right carotid bulb. Normal origin of the right internal carotid (ICA) artery without a hemodynamically significant stenosis. Normal visualized cervical portion of the right internal carotid artery. Normal origin of the right external carotid artery (ECA). LEFT CAROTID ARTERIES: Normal left common carotid artery (CCA). Normal left common carotid bulb. Normal origin of the left internal carotid (ICA) artery without a hemodynamically significant stenosis. Normal visualized cervical portion of the left internal carotid artery. Normal origin of the left external carotid artery (ECA). VERTEBRAL ARTERIES: Normal bilateral vertebral arteries. CT/CTA Head AND Neck W/ Contrast IMPRESSION: Normal CTA Head and neck with contrast. Electronically Signed: Héctor Perze MD at 16:17 EDT Tel , Service support ,
[2019-10-10 15:40] LABS: Anion Gap 3 (5-15); BUN 17 mg/dL (7-18); BUN/Creat Ratio 16.7 RATIO (10-20); Calcium,Total 8.8 mg/dL (8.5-10.1); Chloride 104 mmol/L (98-107); Creatinine, Serum 1.02 mg/dL (0.55-1.02); EST Glomerular Filtration Rate 57 mL/min (>60); Est Glom Filt Rate - Afr Amer 69 mL/min (>60); Estimated Creatinine Clearance 43.68 ml/min; Glucose 101 mg/dL (74-106); Sodium Level 137 mmol/L (136-145)
[2019-10-10] MEDS: Ondansetron 4 MG/2 ML Vial IV (15:40)
[2019-10-10] MEDS: DiphenhydrAMINE 50 MG/ML Syringe 12.5 MG IV (15:47)
--- NOTE | 2019-10-10 15:53 | RAD_ITS ---
STUDY: X-RAY CHEST REASON FOR EXAM: Female, 69 years old. SUDDEN ONSET OF NUMBNESS TO LEFT SIDE AND TONGUE. TECHNIQUE: Single AP portable view of the chest. COMPARISON: 09/24/2019 FINDINGS: The lungs are clear and expanded. There is no demonstrated pleural abnormality. Normal size heart. Normal mediastinum and escobar. Normal visualized pulmonary arteries. Normal visualized aortic arch and descending thoracic aorta. Normal visualized thoracic spine. Normal visualized ribs, clavicles, and shoulders. There is no demonstrated abnormality of the visualized soft tissue structures of the upper abdomen. RAD/Chest 1 View IMPRESSION: Normal x-ray examination of the chest. Electronically Signed: Héctor Perez MD at 16:10 EDT Tel , Service support ,
[2019-10-10] MEDS: Acetaminophen 500 MG Tablet 1000 MG PO (16:16)
[2019-10-10] MEDS: Labetalol (Prefilled) 20 MG/4 ML 10 MG IV (16:47)
--- NOTE | 2019-10-10 16:58 | NURSING ---
[facility], [facility]
[2019-10-10 17:22] LABS: Bedside Glucose 103 mg/dL (70-110)
--- NOTE | 2019-10-10 17:24 | PCM.HP.STD ---
Problem List (1) Hypertensive emergency Status: Acute (2) TIA (transient ischemic attack) Status: Acute (3) Hypothyroid Status: Chronic (4) Paroxysmal atrial fibrillation Status: Chronic (5) Essential (primary) hypertension Status: Chronic (6) Hyperlipidemia Status: Chronic Qualifiers: Hyperlipidemia type: unspecified Qualified Code(s): E78.5 - Hyperlipidemia, unspecified (7) 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 Status: Chronic (8) Obesity Status: Chronic History of Present Illness Date of Admission: 10/10/19 Chief Complaint: parasthesias The patient is a 69 year old F past medical history of paroxysmal atrial fibrillation, uncontrolled hypertension, hyperlipidemia, obesity, hypothyroidism, who presented to the emergency room with complaints of paresthesias. The patient woke up with a severe headache, this is described as across the front of the head and posteriorly at the base of the skull, like a severe pressure. At about 1:00 she started having paresthesias. First she noticed that she was dropping things. She was attempting to pick things up and repeatedly they would fall out of her hand, her heard her dropping things repeatedly. After this her left hand went numb and then her left arm went numb, she later feltpart of her left leg going numb. The paresthesias resolved completely in the emergency room however she still has a severe headache. The patient had no slurred speech, no facial droop, dizziness, lightheadedness, or vision changes. She was found to have severely elevated blood pressure as high as 239/91. She was given 30 mg of labetalol in the emergency room, systolic pressure was 199. Patient reports she has had severely uncontrolled blood pressure for about 2 years and has had chronic headaches since her blood pressure has been uncontrolled. She follows with [facility]. She has been assessed by Dr. Sanders for underlying kidney disease, she had a renal artery ultrasound which demonstrated bilateral renal arteries with less than 60% stenosis. She states she is compliant with her home medications and she took all of her home meds this morning. [] Past Medical History Past Medical History (Chronic Problems): Chronic Problems (Last Reviewed 07/25/19 @ 11:[address] Kahlil Hallman MD) Hypothyroid (Chronic) 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 (Chronic) Obesity (Chronic) Paroxysmal atrial fibrillation (Chronic) Essential (primary) hypertension (Chronic) Hyperlipidemia (Chronic) Edema (Chronic) Medical History: Medical History (Last Reviewed 10/10/19 @ 17:32 by MARISSA Kennedy) Paroxysmal atrial fibrillation (Chronic) I48.0 Essential (primary) hypertension (Chronic) I10 Hyperlipidemia (Chronic) E78.5 Anemia D64.9 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 E03.9 Obesity E66.9 Spinal stenosis M48.00 Thyroid nodule E04.1 Dyslipidemia (Inactive) E78.5 Allergies doxazosin [From Cardura] Allergy (Intermediate, Verified 10/23/18 11:08) difficulty breathing, fatigue amlodipine besylate [From Norvas] Adverse Reaction (Intermediate, Verified 10/23/18 11:08) Edema in legs (known side effect of Amlodipine) hydrochlorothiazide Adverse Reaction (Intermediate, Verified 10/23/18 11:08) Doesn't feel good unable to urinate Home Medications: Ambulatory Orders Medication Instructions Recorded Duloxetine Hcl [Cymbalta] 60 mg PO DAILY 08/24/13 Estrogens, Conjugated [Premarin] 0.625 mg PO DAILY 08/24/13 ergocalciferol (vitamin D2) 1,250 50,000 unit PO WE 05/11/17 mcg (50,000 unit) capsule metoprolol tartrate 100 mg tablet 100 mg PO BID 04/03/18 levothyroxine 75 mcg tablet 75 mcg PO DAILY 09/08/18 rivaroxaban 15 mg tablet 15 mg PO QPM 04/11/19 furosemide 40 mg tablet 40 mg PO DAILY PRN PRN tab 07/25/19 Baclofen 10 mg PO QHS PRN PRN 10/10/19 Flecainide Acetate 100 mg PO BID 10/10/19 Losartan Potassium 50 mg PO BID 10/10/19 Ropinirole HCl 1 mg PO DAILY 10/10/19 Surgical History: Surgical History (Last Reviewed 10/10/19 @ 17:32 by MARISSA Kennedy) History of cardioversion (Resolved) Onset Date: 2014 Z2012, 2014 History of appendectomy Z90.49 History of back surgery Z98.0 X 4 History of hysterectomy Z90.710 History of left heart catheterization Onset Date: 10/23/14 Z98.0 History of tonsillectomy Z90.89 Surgical History: - - Back surgery x3, hysterectomy, appendectomy, T+A. Psychiatric History: Anxiety, Depression [employer] History: ovarian cysts Lives: Spouse/ Significant Other Smoking Status: Never smoker - *Family History Maternal Family History: Family History (Last Reviewed 10/10/19 @ 17:32 by MARISSA Kennedy) Father unknown health history Mother Breast cancer Brother Atrial fibrillation Brother Kidney disease History Items: No pertinent history Review of Systems Constitutional: Denies: Chills, Fever, Weight Change HEENT: Denies: Head Aches, Sinus Congestion, Sinus Drainage Cardiovascular: Denies: Chest Pain, Palpitations Respiratory: Denies: Cough, Shortness of breath at rest, Sputum production Gastrointestinal: Denies: Abdominal Pain, Nausea, Vomiting Genitourinary: Denies: Dysuria Musculoskeletal: Denies: Joint Pain, Joint Tenderness Skin: Denies: Rash, Wounds Neurological: Reports: Focal weakness, Headaches, Numbness, Tingling. Denies: Double vision, Change in Speech, Slurred speech, Confusion Psychiatric: Denies: Anxiety, Depression, Homicidal Ideations, Suicidal Ideations Hematologic/ Lymphatic: Denies: Easy Bruising, Easy Bleeding VTE Information - Inpt Only VTE Present on Admission: No VTE Mechan Device Prophylaxis: None VTE Pharm Prophylaxis ordered?: Yes Patient Problems: Active and Suspected Problems (Last Reviewed 07/25/19 @ 11:[address] Kahlil Hallman MD) Hypertensive urgency (Acute) TIA (transient ischemic attack) (Acute) Hypertensive emergency (Acute) - Physical Exam Vitals/I&O's: Vital Signs Temp Pulse Resp BP Pulse Ox 98.5 F 61 14 239/91 H 96 10/10/19 15:12 10/10/19 16:30 10/10/19 16:30 10/10/19 16:18 10/10/19 16:30 Oxygen Delivery Method Room Air Weight: 208 lb 12.444 oz Body Mass Index (BMI) 35.8 Finger Stick Blood Glucose 103 General: Alert, Oriented x3, Cooperative HEENT: Atraumatic, PERRLA, EOMI, Normocephalic Neck: Supple, No JVD, Negative Carotid Bruits Lungs: Clear to auscultation, Normal air movement Cardiovascular: Regular rate, No murmurs Abdomen: Bowel Sounds Present, Soft, Non Tender Extremities: No edema, Capillary Refill Less than 3 Seconds Skin: No rashes, No breakdown Musculoskeletal: No Tenderness to Palpation of Joints or Extremities Neurological: Cranial nerves II-XII grossly intact Psych/Mental Status: Normal Affect, Appropriate, Alert and oriented to time, place, person, mood and affect Laboratory Results 10/10/19 15:10: POC Glucose 103 10/10/19 15:14: WBC 11.2 H, RBC 5.42 H, Hgb 13.4, Hct 43.2, MCV 79.7 L, MCH 24.7 L, MCHC 31.0 L, RDW Std Deviation 39.0, RDW Coeff of Luis 13.8, Plt Count 355, MPV 10.5, Immature Gran % (Auto) 0.400, Neut % (Auto) 73.9 H, Lymph % (Auto) 16.3 L, Latimer % (Auto) 6.7, Eos % (Auto) 1.8, Baso % (Auto) 0.9, Absolute Neuts (auto) 8.3 H, Absolute Lymphs (auto) 1.83, Nucleated RBC % 0 10/10/19 15:14: PT 15.3 H, INR 1.3, APTT 32.2 10/10/19 15:14: Sodium 137, Potassium 4.0, Chloride 104, Carbon Dioxide 30.0, Anion Gap 3 L, BUN 17, Creatinine 1.02, Estim Creat Clear Calc 43.68, Est GFR (MDRD) Af Amer 69, Est GFR (MDRD) Non-Af 57 L, BUN/Creatinine Ratio 16.7, Glucose 101, Calcium 8.8, Troponin I 0.057 H Current Medications Labetalol HCl (Trandate) 20 mg IV X1 PRN PRN Reason: BLOOD PRESSURE Assessment/Plan All Active Problems (Last Reviewed 07/25/19 @ 11:[address] Kahlil Hallman MD) Hypertensive urgency (Acute) TIA (transient ischemic attack) (Acute) Hypertensive emergency (Acute) History of cardioversion (Resolved 2014) Other chest pain (Resolved) 1. Hypertensive emergency as evidenced by severely uncontrolled hypertension with endorgan damage including neurologic deficits and indeterminate troponin-this is also possibly a TIA or complex migraine. Unfortunately with concern for stroke we will need to conservatively treat the blood pressure until MRI is back, hold her home medications, provide PRN hydralazine and labetalol for pressures greater than 200 systolic. CTA of the head and neck was negative, CT of the brain was negative. We will need an MRI to look for underlying stroke. Obtain repeat echocardiogram, last in March 2018. Consider cardiology consult. Patient has had a renal artery duplex in August 2018 that was negative for significant stenosis. Will start patient on aspirin and statin. Obtain PT OT ST eval's. Follow NIH scores. If MRI negative will more aggressively treat blood pressure. - Patient is using oral estrogens for unclear reasons, with the increased clotting risk will recommend complete discontinuation of this. 2. Indeterminate troponin-EKG negative, repeat EKG in a.m., obtain echo tomorrow, cycle enzymes. 3. Paroxysmal atrial fibrillation-she has had ablation in the past and is currently in sinus rhythm. Continue Xarelto, metoprolol held as above. 4. Diet-controlled type 2 diabetes mellitus, obesity-check A1c, sliding scale insulin if needed, Accu-Cheks, Dietitian evaluation 5. 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-recent normal TSH, continue Synthroid DVT prophylaxis: Xarelto This patient was seen by Fernando Roland PA-C under the supervision of Doctor Maci.
--- NOTE | 2019-10-10 18:12 | MRI_ITS ---
STUDY: MRI BRAIN WITHOUT CONTRAST REASON FOR EXAM: Female, 69 years old. CVA -- villa, left sided weakness today TECHNIQUE: Standardized multiplanar fat and water weighted pulse sequences were obtained. COMPARISON: CT and CTA brain 10/10/2019 FINDINGS: There is mild cerebral atrophy with widening of the extra-axial spaces and ventricular dilatation. There are a limited number of small white matter hyperintensities, distributed throughout the deep white matter tracts of the cerebral hemispheres, consistent with mild chronic white matter ischemic changes. There is no evidence for recent intracranial ischemia or other cause of cytotoxic edema on diffusion weighted imaging (DWI). Remote lacunar infarcts left basal ganglia. Normal thalami. There is no extra-axial fluid accumulation. Normal flow voids within the major intracranial circulation suggesting patency by spin echo criteria. Normal sella turcica, pituitary gland, infundibular stalk, optic chiasm and hypothalamus. Normal tectal plate and pineal gland. Normal midbrain, silver and medulla. Normal cerebellum. Normal basal cisterns. Normal bilateral temporal bones. Normal bilateral internal auditory canals. No demonstrated orbital abnormality, within the constraints of a routine brain study. Normal visualized paranasal sinuses. Normal calvarium and skull base. Normal visualized soft tissue structures. Normal visualized upper cervical spine. MRI/Brain without Contrast IMPRESSION: Involutional changes of the brain, as described above. Electronically Signed: Judd Chappell MD at 19:52 EDT , Service support ,
--- NOTE | 2019-10-10 18:12 | ECHOD_ITS ---
Reason For Study: ARRHYTHMIA Procedure This was a 2D Doppler, Color Flow transthoracic echocardiogram. Exam performed in department. Left Ventricle Normal LV size. Left ventricular systolic function is normal. The estimated ejection fraction is 65 %. No regional wall motion abnormalities noted. Right Ventricle Normal RV size. Normal systolic function. Atria Normal left atrium. Normal right atrium. Mitral Valve Normal mitral valve. Tricuspid Valve Normal tricuspid valve. Mild (1+) tricuspid valve insufficiency. Pulmonary artery systolic pressure is 42 mmHg. Aortic Valve Normal aortic valve. Trisinus/trileaflet aortic valve. Pulmonic Valve Normal pulmonic valve. Great Vessels Normal aortic root. The pulmonary artery is normal size. Normal inferior vena cava. Pericardium/Pleural No pericardial effusion. MMode/2D Measurements & Calculations LVIDd: 4.9 cm IVSd: 1.1 cm Ao root diam: 3.3 cm LVIDs: 2.6 cm LVPWd: 1.1 cm RVDd: 3.5 cm FS: 47.0 % LAV(MOD-bp): 67.0 ml LA A4 area: 24.0 cm2 LA dimension(2D): 4.2 cm LAV(MOD-bp) Indexed: 33.7 ml/m2 LAV(MOD-sp2): 41.3 ml LAV(MOD-sp4): 75.1 ml RA A4 area: 18.3 cm2 Time Measurements MV dec time: 0.17 sec Doppler Measurements & Calculations MV E max miguel: 92.4 cm/sec Lat Peak E' Miguel: 7.0 cm/sec Med Peak E' Miguel: 5.7 cm/sec MV A max miguel: 111.4 cm/sec E/E' lat: 13.1 E/E' med: 16.1 MV E/A: 0.83 MV V2 max: 115.9 cm/sec Ao V2 max: 145.6 cm/sec LV V1 max: 102.3 cm/sec MV max P.4 mmHg Ao max P.5 mmHg LV V1 max P.2 mmHg MV V2 mean: 68.8 cm/sec MV mean P.1 mmHg MV V2 VTI: 32.2 cm TR max miguel: 308.2 cm/sec MV P1/2t-pr_phl: 85.7 msec TR max P.0 mmHg Interpretation Summary Normal LV size. Left ventricular systolic function is normal. The estimated ejection fraction is 65 %. Pulmonary artery systolic pressure is 42 mmHg. Structurally normal valves. Ordering Physician: Faith Lux Referring Physician: MIGNON MALIK Performed By: Esther Farah, RAHUL, RVT
[2019-10-10 18:29] LABS: Magnesium 1.9 mg/dL (1.6-2.6)
[2019-10-10 18:41] LABS: Hemoglobin A1c 5.6 % (3.8-5.6)
[2019-10-10] MEDS: LORazepam 2 MG/ML Syringe 0.5 MG IV (18:55)
[2019-10-10] MEDS: Acetaminophen 325 MG Tablet 650 MG PO (21:42)
[2019-10-10] MEDS: Rivaroxaban 15 MG Tablet PO (21:56)
[2019-10-10] MEDS: Flecainide 100 MG Tablet PO (21:57)
[2019-10-10] MEDS: Atorvastatin Calcium 40 MG Tablet PO (21:57)
[2019-10-10] MEDS: Famotidine 20 MG Tablet PO (21:57)
[2019-10-10 23:06] LABS: Bedside Glucose 116 mg/dL (70-110)
[2019-10-11] VITALS (19 sets, daily range): BP systolic 153–206; BP diastolic 57–86; PULSE 61–98; RESP 14–18; TEMP 36.8–37.1; O2SAT 96–98; BMI 33.6
[2019-10-11] MEDS: hydrALAZINE 20 MG/ML Vial 10 MG IV (00:17)
[2019-10-11] MEDS: 0.9% Saline Lock 10 ML Syringe IV ×4 (01:08→18:03)
[2019-10-11] MEDS: Ondansetron 4 MG/2 ML Vial IV (01:08)
[2019-10-11] MEDS: oxyCODONE 5 MG Tablet PO ×2 (01:53→08:31)
[2019-10-11 03:30] LABS: Absolute Lymphocyte Count 0.97 X10^3/uL (0.83-4.51); Absolute Neutrophil Count 9.7 X10^3/uL (2.0-7.7); Basophil# 0.07 X10^3/uL; Basophil% 0.6 % (0-1); Eosinophil# 0.01 X10^3/uL; Eosinophils% 0.1 % (0-5); Hematocrit 40.9 % (37-47); Lymphocyte # 0.97 X10^3/ul (4.0); Lymphocyte % 8.5 % (19-41); Mean Corp Hgb Conc 31.8 g/dL (32-36); Mean Corpuscular Hgb 24.9 pg (27.0-32.0); Mean Corpuscular Volume 78.4 fL (81-99); Mean Platelet Vol. 10.1 fl (6.2-12.0); Monocyte# 0.61 X10^3/uL; Monocyte% 5.4 % (0-10); NRBC Flagged by Analyzer 0 % (0-5); Neutrophil # 9.68 X10^3/uL (2.7-7.7); Neutrophil % 84.9 % (47-70); Platelet Count 319 K/mm3 (150-450); RBC Distribution Width CV 13.4 % (11.6-14.6); RBC Distribution Width SD 37.9 fl (35.1-43.9); Red Blood Count 5.22 M/mm3 (4.2-5.4); White Blood Count 11.4 K/mm3 (4.4-11.0)
[2019-10-11] MEDS: proCHLORPERazine 10 MG/2 ML Vial 5 MG IV (03:45)
[2019-10-11 03:47] LABS: AST(SGOT) 9 U/L (15-37); Alanine Aminotransfer ALT/SGPT 23 U/L (13-56); Albumin, Serum 3.4 g/dL (3.2-5.0); Alkaline Phosphatase 101 U/L (45-117); Anion Gap 7 (5-15); BUN 12 mg/dL (7-18); BUN/Creat Ratio 14.1 RATIO (10-20); Calcium,Total 8.3 mg/dL (8.5-10.1); Chloride 99 mmol/L (98-107); Cholesterol 249 mg/dL (200); Creatinine, Serum 0.85 mg/dL (0.55-1.02); EST Glomerular Filtration Rate 70 mL/min (>60); Est Glom Filt Rate - Afr Amer 85 mL/min (>60); Estimated Creatinine Clearance 52.42 ml/min; Globulin 3.4 g/dL (2.2-4.2); Glucose 136 mg/dL (74-106); High Density Lipoprotein 60 mg/dL; Potassium 3.3 mmol/L (3.5-5.1); Protein, Total 6.8 g/dL (6.4-8.2); Sodium Level 132 mmol/L (136-145); Triglycerides 121 mg/dL; Very Low Density Lipoprotein 24 mg/dL (5-40)
--- NOTE | 2019-10-11 05:55 | EKG12_ITS ---
Test Reason : STROKE Blood Pressure : / mmHG Vent. Rate : 065 BPM Atrial Rate : 065 BPM P-R Int : 168 ms QRS Dur : 092 ms QT Int : 432 ms P-R-T Axes : 048 043 055 degrees QTc Int : 449 ms Normal sinus rhythm Normal ECG Confirmed by ELOISA FIELDS MD ([id number]), editorial assistant RASHMI LOPEZ ([id number]) on 10/17/2019 8:26:31 AM Referred By: REYES Confirmed By:ELOISA FIELDS MD
[2019-10-11] MEDS: Levothyroxine 75 MCG Tablet PO (06:58)
[2019-10-11 07:05] LABS: Bedside Glucose 136 mg/dL (70-110)
[2019-10-11] MEDS: Labetalol (Prefilled) 20 MG/4 ML IV (08:37)
[2019-10-11] MEDS: Aspirin 81 MG TAB.CHEW PO (08:43)
[2019-10-11] MEDS: Flecainide 100 MG Tablet PO ×2 (08:44→21:05)
[2019-10-11] MEDS: DULoxetine Hcl 60 MG Capsule PO (08:44)
[2019-10-11] MEDS: Famotidine 20 MG Tablet PO ×2 (08:44→21:05)
[2019-10-11] MEDS: Pramipexole Di-HCl 0.5 MG Tablet PO (08:44)
--- NOTE | 2019-10-11 11:16 | TELEMED_ITS ---
[facility] has confirmed receipt of a request for visit. This document confirms receipt of the order initiating the consult. To find the results of the consultation, please view the patient's reports for the scanned Telemed Consult.
--- NOTE | 2019-10-11 11:26 | CASEMGMT ---
RN CM Assessment. Intro role of CM to patient and her . Pt is lethargic, falls asleep quickly and is not able to participate in assessment at this time. is able to participate and answer questions. He is frustrated that everyone is asking how she was doing at home and she was fine before this. RN CM explained that baseline assessment and current activity assessment is needed to see if there would be any needs on discharge. Explained PT/OT/ST will be seeing pt and doing evaluation, may ask similar questions, but it is important to see if there are any changes from how she was prior to admission. seem to understand. - also verbalized frustration that her BP and frequent headaches are difficult to control at home. Presentation: paresthesias L arm. Was dropping items at home. Diagnosis: HTN, possible CVA PCP: Dr. May Specialists: Dr. Hallman, cardiology Pharmacy: [facility]. Pharmacy benefit: yes, has mail order pharmacy Insurance MCR LNOK: , Ian Leaver Living arrangements:Lives in one story home with . Pt was independentin ADL's/IADL's prior to admission. No care needs. states he did the driving for her. HHC:none SNF:none Pt's dc goals: Home DC Plan: anticipate home on dc. PT/OT/ST evals pending. Teresa CESPEDES RN ACM
[2019-10-11] MEDS: Acetaminophen 325 MG Tablet 650 MG PO (11:29)
[2019-10-11 11:36] LABS: Bedside Glucose 148 mg/dL (70-110)
--- NOTE | 2019-10-11 12:05 | CASEMGMT ---
RN CM Assessment. Intro role of CM to patient and her . Pt is lethargic, falls asleep quickly and is not able to participate in assessment at this time. is able to participate and answer questions. He is frustrated that everyone is asking how she was doing at home and she was fine before this. RN CM explained that baseline assessment and current activity assessment is needed to see if there would be any needs on discharge. Explained PT/OT/ST will be seeing pt and doing evaluation, may ask similar questions, but it is important to see if there are any changes from how she was prior to admission. seem to understand. - also verbalized frustration that her BP and frequent headaches are difficult to control at home. Presentation: paresthesias L arm. Was dropping items at home. Diagnosis: HTN, possible CVA PCP: Dr. May Specialists: Dr. Hallman, cardiology Pharmacy: [facility]. Pharmacy benefit: yes, has mail order pharmacy Insurance MCR LNOK: , Ian Leaver Living arrangements:Lives in one story home, 2 steps in with . Pt was independent ADL's/IADL's prior to admission. No care needs. states he did the driving for her. DME: none HHC:none SNF:none Pt's dc goals: Home DC Plan: anticipate home on dc. PT/OT/ST evals pending. Teresa CESPEDES RN ACM
--- NOTE | 2019-10-11 13:34 | PN_ITS ---
Patient Problems: Active and Suspected Problems (Last Reviewed 10/10/19 @ 17:32 by MARISSA Kennedy) Hypertensive urgency (Acute) TIA (transient ischemic attack) (Acute) Hypertensive emergency (Acute) Reason for Visit: Hypertensive emergency Migraine headache exacerbated by hypertension Objective: In the morning patient had headache but is getting better. Patient has history of headache for more than 3 years and she relates with high blood pressure. It seems patient has headache which is characteristic of migraine headache exacerbated by hypertension. Paroxysmal A. fib on Xarelto Admitted with left-sided numbness, weakness and severe headache and high blood pressure, systolic in 200s. EKG normal sinus rhythm at 70 bpm. Physical exam General: Oriented x3, Cooperative, lethargic and sleepy in the morning. HEENT: Atraumatic, PERRLA, EOMI, Normocephalic, mild photophobia Oral: No Gingival or Mucosal Lesions/ Ulcerations Neck: Supple, No JVD, Negative Carotid Bruits Lungs: Air entry diminished in bilateral lung bases. No crepitation/rhonchi Cardiovascular: Regular rate, Regular Rhythm, Normal S1, Normal S2, No murmurs. 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 Abdomen: Bowel Sounds Present, Soft, Non Tender, Non-Distended : No renal angle tenderness. No suprapubic tenderness. Extremities: No edema, Capillary Refill Less than 3 Seconds Skin: No rashes, No breakdown Musculoskeletal: No Tenderness to Palpation of Joints or Extremities Neurological: Cranial nerves II-XII grossly intact, Deep Tendon Reflexes 2+/4 and Symmetrical, Neuro grossly intact Psych/Mental Status: Normal Affect, Appropriate. Vitals/I&O's: Vital Signs Temp Pulse Resp BP Pulse Ox 98.3 F 68 14 153/65 H 97 10/11/19 11:23 10/11/19 13:20 10/11/19 11:23 10/11/19 13:20 10/11/19 11:23 Oxygen Delivery Method Room Air Weight: 199 lb 1.239 oz Body Mass Index (BMI) 33.6 Finger Stick Blood Glucose 103 Intake and Output for Last 24 Hours 10/09/19 10/10/19 10/11/19 23:59 23:59 23:59 Intake Total 480 / 480 720 / 720 Balance 480 / 480 720 / 720 Laboratory Results 10/10/19 15:10: POC Glucose 103 10/10/19 15:14: WBC 11.2 H, RBC 5.42 H, Hgb 13.4, Hct 43.2, MCV 79.7 L, MCH 24.7 L, MCHC 31.0 L, RDW Std Deviation 39.0, RDW Coeff of Luis 13.8, Plt Count 355, MPV 10.5, Immature Gran % (Auto) 0.400, Neut % (Auto) 73.9 H, Lymph % (Auto) 16.3 L, [place] % (Auto) 6.7, Eos % (Auto) 1.8, Baso % (Auto) 0.9, Absolute Neuts (auto) 8.3 H, Absolute Lymphs (auto) 1.83, Nucleated RBC % 0 10/10/19 15:14: PT 15.3 H, INR 1.3, APTT 32.2 10/10/19 15:14: Sodium 137, Potassium 4.0, Chloride 104, Carbon Dioxide 30.0, Anion Gap 3 L, BUN 17, Creatinine 1.02, Estim Creat Clear Calc 43.68, Est GFR (MDRD) Af Amer 69, Est GFR (MDRD) Non-Af 57 L, BUN/Creatinine Ratio 16.7, Glucose 101, Calcium 8.8, Troponin I 0.057 H 10/10/19 15:14: Magnesium 1.9 10/10/19 15:14: Hemoglobin A1c 5.6 10/10/19 20:15: Troponin I 0.065 H 10/10/19 21:48: POC Glucose 116 H 10/11/19 00:05: Troponin I 0.069 H 10/11/19 03:24: WBC 11.4 H, RBC 5.22, Hgb 13.0, Hct 40.9, MCV 78.4 L, MCH 24.9 L , MCHC 31.8 L, RDW Std Deviation 37.9, RDW Coeff of Luis 13.4, Plt Count 319, MPV 10.1, Immature Gran % (Auto) 0.500, Neut % (Auto) 84.9 H, Lymph % (Auto) 8.5 L, [place] % (Auto) 5.4, Eos % (Auto) 0.1, Baso % (Auto) 0.6, Absolute Neuts (auto) 9.7 H, Absolute Lymphs (auto) 0.97, Nucleated RBC % 0 10/11/19 03:24: Sodium 132 L, Potassium 3.3 L, Chloride 99, Carbon Dioxide 26.0, Anion Gap 7, BUN 12, Creatinine 0.85, Estim Creat Clear Calc 52.42, Est GFR (MDRD) Af Amer 85, Est GFR (MDRD) Non-Af 70, BUN/Creatinine Ratio 14.1, Glucose 136 H, Calcium 8.3 L, Total Bilirubin 0.40, AST 9 L, ALT 23, Alkaline Phosphatase 101, Troponin I 0.094 H, Total Protein 6.8, Albumin 3.4, Globulin 3.4, Albumin/Globulin Ratio 1.0, Triglycerides 121, Cholesterol 249 H, LDL Cholesterol 165 H, VLDL Cholesterol 24, HDL Cholesterol 60 10/11/19 03:24: ESR Pending 10/11/19 06:57: POC Glucose 136 H 10/11/19 11:29: POC Glucose 148 H Current Medications Acetaminophen (Tylenol) 650 mg PO Q6H PRN PRN PRN Reason: Pain Score 1-10/Temp > 100.7 F Last Admin: 10/11/19 11:29 Dose: 650 mg Documented by: Al Hydroxide/Mg Hydroxide (Mylanta Ii) 30 ml PO Q6H PRN PRN PRN Reason: Gastric Burning Albuterol Sulfate (Ventolin Aerosols) 2.5 mg INHALATION Q2H PRN PRN PRN Reason: Dyspnea, wheezing Aspirin (Aspirin, Baby) 81 mg PO DAILY@0800 [facility] Last Admin: 10/11/19 08:43 Dose: 81 mg Documented by: Atorvastatin Calcium (Lipitor) 40 mg PO QHS [facility] Last Admin: 10/10/19 21:57 Dose: 40 mg Documented by: Baclofen (Lioresal) 10 mg PO QHS PRN PRN PRN Reason: SPASMS Dextrose (D50w Syringe) 0 gm IV X1 PRN; Protocol PRN Reason: Hypoglycemia Duloxetine HCl (Cymbalta) 60 mg PO DAILY [facility] Last Admin: 10/11/19 08:44 Dose: 60 mg Documented by: Famotidine (Pepcid) 20 mg PO BID [facility] Last Admin: 10/11/19 08:44 Dose: 20 mg Documented by: Flecainide Acetate (Tambocor) 100 mg PO BID [facility] Last Admin: 10/11/19 08:44 Dose: 100 mg Documented by: Furosemide (Lasix) 40 mg PO DAILY PRN PRN PRN Reason: leg Swelling Glucagon () 1 mg IM .X1 PRN PRN Reason: Hypoglycemia Guaifenesin (Robitussin) 20 ml PO Q4H PRN PRN PRN Reason: COUGH Hydralazine HCl (Apresoline Iv) 10 mg IV Q30M PRN PRN Reason: SBP>170 mmhg Insulin Human Lispro (Humalog Kwikpen (Bkc)) 0 unit SC [facility]; Protocol Last Admin: 10/11/19 11:29 Dose: Not Given Documented by: Labetalol HCl (Trandate) 10 mg IV Q6H PRN PRN Reason: SBP > 180 Levothyroxine Sodium (Synthroid) 75 mcg PO DAILY@0600 [facility] Last Admin: 10/11/19 06:58 Dose: 75 mcg Documented by: Losartan Potassium (Cozaar) 50 mg PO BID [facility] Melatonin (Melatonin) 3 mg PO QHS PRN PRN PRN Reason: INSOMNIA Metoprolol Tartrate (Lopressor (Beta Kianna)) 100 mg PO BID [facility] Morphine Sulfate () 2 mg IV Q3H PRN PRN PRN Reason: Pain Score 6-10/10 Nitroglycerin (Nitrostat) 0.4 mg SUBLINGUAL Q5M PRN PRN Reason: CARDIAC/CHEST PAIN Ondansetron HCl (Zofran) 4 mg IV Q8H PRN PRN PRN Reason: NAUSEA/VOMITING Last Admin: 10/11/19 01:08 Dose: 4 mg Documented by: Oxycodone HCl (Oxyir) 5 mg PO Q4H PRN PRN PRN Reason: Pain Score 4-5/10 Last Admin: 10/11/19 08:31 Dose: 5 mg Documented by: Pramipexole Dihydrochloride (Mirapex) 0.5 mg PO DAILY [facility] Last Admin: 10/11/19 08:44 Dose: 0.5 mg Documented by: Prochlorperazine Edisylate (Compazine Iv) 5 mg IV Q4H PRN PRN PRN Reason: Breakthrough Nausea/Vomiting Last Admin: 10/11/19 03:45 Dose: 5 mg Documented by: Psyllium Hydrophilic Mucilloid (Metamucil) 1 packet PO DAILY PRN PRN PRN Reason: Constipation Rivaroxaban (Xarelto) 15 mg PO DAILY@1700 [facility] Last Admin: 10/10/19 21:56 Dose: 15 mg Documented by: Senna/Docusate Sodium (Senokot-S, Kathryn-Colace) 2 tablet PO BID PRN PRN PRN Reason: Constipation Sodium Chloride () 10 - 40 ml IV UD PRN PRN Reason: SALINE FLUSH Last Admin: 10/11/19 08:36 Dose: 20 ml Documented by: Throat Lozenges (Cepacol Sore Throat Lozenge) 1 lozenge MUCOUS MEM Q2H PRN PRN PRN Reason: SORE THROAT STROKE Vital Signs/Narrative: Vital Signs Temp Pulse Resp BP BP Pulse Ox 10/11/19 13:20 68 153/65 H 10/11/19 11:23 98.3 F 61 14 160/57 H 97 10/11/19 10:21 72 Medical Necessity - Tobacco Use Smoking Status: Never smoker Assessment/Plan All Active Problems (Last Reviewed 10/10/19 @ 17:32 by MARISSA Kennedy) Hypertensive urgency (Acute) TIA (transient ischemic attack) (Acute) Hypertensive emergency (Acute) History of cardioversion (Resolved 2014) Other chest pain (Resolved) This 69-year-old patient female admitted with hypertensive emergency along with severe headache and left-sided paresthesia and weakness. On admission her blood pressure was 239/91. 1. Hypertensive emergency with evidence of neurological deficit left-sided paresthesia and mildly elevated troponin: Blood pressure is controlled. 156/80. Acute stroke ruled out. 2. Migraine headache exacerbated by hypertension: Patient had MRI brain which did not show acute intracranial change.CTA of the head and neck was negative, CT of the brain was negative. Patient had neurology consult and impression was migraine headache accelerated hypertension. Advised ESR. is. on aspirin and statin. Obtain PT OT speech and swallow evaluation. 3. 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 Cardiology consult. Patient has had a renal artery duplex in August 2018 that was negative for significant stenosis 3. Paroxysmal atrial fibrillation-she has had ablation in the past and is currently in sinus rhythm. Continue Xarelto, metoprolol held as above 4. Diet-controlled type 2 diabetes mellitus, obesity: A1c 5.6, normal. 5. 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-recent normal TSH, continue Synthroid 6. Dyslipidemia: Total cholesterol 250, LDL 165. Atorvastatin increased to 80 mg daily. DVT prophylaxis: Xarelto Total time of the visit including total time spent in counseling or coordination of care, (more than 50% of the total time, spent in obtaining medical information from nurses and other ancillary care providers), discussion with SOC neurologist, , review of labs and imaging is 30 minutes. Inpatient E&M: [id number] [facility] L3
[2019-10-11 13:47] LABS: Erythrocyte Sedimentation Rate 16 mm/hr (0-30)
[2019-10-11] MEDS: Losartan Potassium 50 MG Tablet PO ×2 (15:44→21:05)
[2019-10-11] MEDS: Metoprolol Tartrate 100 MG Tablet PO ×2 (15:44→21:05)
--- NOTE | 2019-10-11 17:19 | CON.PCM_ITS ---
Reason for Consult Date of Consultation: 10/11/19 Reason for Consultation: Elevated blood pressure and abnormal troponins History of Present Illness: The patient is a 69 year old F with a history of hypertension, hyperlipidemia, history of previous lower extremity edema, and paroxysmal atrial fibrillation with rapid ventricular response rate. She underwent DC cardioversion in 2012 as well as in 2014. She had been doing well at her office telephone visit in July of this year. Yesterday she presented to the emergency room with severe hypertension as well as a headache and leg weakness. She was evaluated in the emergency room and treated aggressively. A CT scan and MRI did not demonstrate any significant abnormalities. Cardiac enzymes were obtained which appeared to be mildly abnormal. Her EKG did not demonstrate any obvious abnormalities. Cardiology was asked to see her for evaluation. [] She is currently doing better other than her headache. Past Medical History Allergies/Adverse Reactions: Allergies doxazosin [From Cardura] Allergy (Intermediate, Verified 10/23/18 11:08) difficulty breathing, fatigue amlodipine besylate [From Norvasc] Adverse Reaction (Intermediate, Verified 10/23/18 11:08) Edema in legs (known side effect of Amlodipine) hydrochlorothiazide Adverse Reaction (Intermediate, Verified 10/23/18 11:08) Doesn't feel good unable to urinate Home Medications: Ambulatory Orders Medication Instructions Recorded Duloxetine Hcl [Cymbalta] 60 mg PO DAILY 08/24/13 Estrogens, Conjugated [Premarin] 0.625 mg PO DAILY 08/24/13 ergocalciferol (vitamin D2) 1,250 50,000 unit PO WE 05/11/17 mcg (50,000 unit) capsule metoprolol tartrate 100 mg tablet 100 mg PO BID 04/03/18 levothyroxine 75 mcg tablet 75 mcg PO DAILY 09/08/18 rivaroxaban 15 mg tablet 15 mg PO QPM 04/11/19 furosemide 40 mg tablet 40 mg PO DAILY PRN PRN tab 07/25/19 Baclofen 10 mg PO QHS PRN PRN 10/10/19 Flecainide Acetate 100 mg PO BID 10/10/19 Losartan Potassium 50 mg PO BID 10/10/19 Ropinirole HCl 1 mg PO DAILY 10/10/19 Past Medical History (Chronic Problems): Chronic Problems (Last Reviewed 10/10/19 @ 17:32 by MARISSA Kennedy) Hypothyroid (Chronic) 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 (Chronic) Obesity (Chronic) Paroxysmal atrial fibrillation (Chronic) Essential (primary) hypertension (Chronic) Hyperlipidemia (Chronic) Edema (Chronic) Surgical History: - - Back surgery x3, hysterectomy, appendectomy, T+A. Psychiatric History: Anxiety, Depression [employer] WORK[employer] History: ovarian cysts - *Family History Maternal Family History: Family History (Last Reviewed 10/10/19 @ 17:32 by MARISSA Kennedy) Father unknown health history Mother Breast cancer Brother Atrial fibrillation Brother Kidney disease History Items: No pertinent history Lives: Spouse/ Significant Other Smoking Status: Never smoker Alcohol: None Drugs: None Review of Systems - Review of Systems General: Denies: Fever, Night Sweats, Fatigue HEENT: Reports: Head Aches. Denies: Vision Change Cardiovascular: Denies: Chest Discomfort, Shortness of Breath, Orthopnea, PND, Peripheral Edema, Palpitations, Lightheadedness, Dizziness, Near Syncope, Syncope Respiratory: Denies: Cough, Sputum Production, Hemoptysis Gastrointestinal: Denies: Hematemesis, Hematochezia, Melena Genitourinary: Denies: Dysuria, Hematuria Muscoloskeletal: Reports: Muscle Weakness Skin: Denies: Rash Neurological: Reports: Weakness Psychiatric: Denies: Anxiety Endocrine: Denies: Heat Intolerance Hematologic/ Lymphatic: Denies: Lymph Node Enlargement Objective: Vital Signs Temp Pulse Resp BP Pulse Ox 98.4 F 87 14 156/80 H 98 10/11/19 15:47 10/11/19 15:47 10/11/19 15:47 10/11/19 15:47 10/11/19 15:47 Oxygen Delivery Method Room Air Weight: 199 lb 1.239 oz Body Mass Index (BMI) 33.6 Finger Stick Blood Glucose 103 Intake and Output for Last 24 Hours 10/09/19 10/10/19 10/11/19 23:59 23:59 23:59 Intake Total 480 / 480 720 / 720 Balance 480 / 480 720 / 720 10/10/19 15:14: Magnesium 1.9 10/10/19 15:14: Hemoglobin A1c 5.6 10/10/19 20:15: Troponin I 0.065 H 10/11/19 00:05: Troponin I 0.069 H 10/11/19 03:24: WBC 11.4 H, RBC 5.22, Hgb 13.0, Hct 40.9, MCV 78.4 L, MCH 24.9 L , MCHC 31.8 L, Plt Count 319, MPV 10.1, Immature Gran % (Auto) 0.500, Neut % (Auto) 84.9 H, Lymph % (Auto) 8.5 L, [place] % (Auto) 5.4, Eos % (Auto) 0.1, Baso % (Auto) 0.6, Absolute Neuts (auto) 9.7 H, Nucleated RBC % 0 10/11/19 03:24: Sodium 132 L, Potassium 3.3 L, Chloride 99, Carbon Dioxide 26.0, Anion Gap 7, BUN 12, Creatinine 0.85, Est GFR (MDRD) Af Amer 85, Est GFR (MDRD) Non-Af 70, BUN/Creatinine Ratio 14.1, Glucose 136 H, Calcium 8.3 L, Total Bilirubin 0.40, Troponin I 0.094 H, Triglycerides 121, Cholesterol 249 H, LDL Cholesterol 165 H, VLDL Cholesterol 24, HDL Cholesterol 60 Rhythm: EKG: Normal sinus rhythm with no acute changes ECHO: Preserved ejection fraction of 65% with no wall motion abnormalities Stress Test: Cardiac Cath: PCI: CT Surgery: Holter monitor: EPS: PPM: CXR: Chest CT Scan: Assessment/Plan 1. Hypertensive emergency * Patient presented with hypertensive emergency with no EKG changes and had resultant mildly abnormal troponin. Her blood pressures have improved since admission. Her echocardiogram demonstrates preserved ejection fraction with no wall motion abnormalities. My suspicion is that her abnormal cardiac enzymes are likely secondary to demand ischemia. * Would recommend continued watchful waiting. * Continue current antihypertensives. * Would increase hydrochlorothiazide to 25 mg once a day 2. Paroxysmal atrial fibrillation * Patient appears to be maintaining sinus rhythm and has not had a recurrence of the above. * Will continue Xarelto for now as well as the beta-chivo. * 3. Abnormal cardiac enzymes * As noted above the above is likely secondary to demand ischemia. I would not recommend that we make any changes to her medication at this time. * As an outpatient may consider pharmacologic stress testing. * * Thank you for allowing me to participate in the care of your patient. Please don't hesitate to call if any issues arise.
[2019-10-11] MEDS: Rivaroxaban 15 MG Tablet PO (17:50)
[2019-10-11] MEDS: Labetalol (Prefilled) 20 MG/4 ML 10 MG IV (18:02)
[2019-10-11 18:06] LABS: Bedside Glucose 117 mg/dL (70-110)
[2019-10-11] MEDS: amLODIPine 5 MG Tablet PO (19:49)
[2019-10-11] MEDS: Atorvastatin Calcium 80 MG Tablet PO (21:06)
[2019-10-11 22:31] LABS: Bedside Glucose 125 mg/dL (70-110)
[2019-10-12 00:32] VITALS: BMI 33.6
[2019-10-12 03:00] VITALS: BP 144/57; PULSE 61; PULSE 65; RESP 14; TEMP 37; O2SAT 98
[2019-10-12] MEDS: Levothyroxine 75 MCG Tablet PO (06:35)
[2019-10-12 06:47] LABS: Absolute Lymphocyte Count 1.56 X10^3/uL (0.83-4.51); Absolute Neutrophil Count 5.7 X10^3/uL (2.0-7.7); Basophil# 0.07 X10^3/uL; Basophil% 0.8 % (0-1); Eosinophil# 0.18 X10^3/uL; Eosinophils% 2.1 % (0-5); Hematocrit 43.6 % (37-47); Hemoglobin 13.7 g/dL (12.0-15.0); Lymphocyte # 1.56 X10^3/ul (4.0); Lymphocyte % 18.6 % (19-41); Mean Corp Hgb Conc 31.4 g/dL (32-36); Mean Corpuscular Hgb 24.4 pg (27.0-32.0); Mean Corpuscular Volume 77.6 fL (81-99); Mean Platelet Vol. 10.8 fl (6.2-12.0); Monocyte# 0.79 X10^3/uL; Monocyte% 9.4 % (0-10); NRBC Flagged by Analyzer 0 % (0-5); Neutrophil # 5.74 X10^3/uL (2.7-7.7); Neutrophil % 68.5 % (47-70); Platelet Count 376 K/mm3 (150-450); RBC Distribution Width CV 13.4 % (11.6-14.6); RBC Distribution Width SD 37.4 fl (35.1-43.9); Red Blood Count 5.62 M/mm3 (4.2-5.4); White Blood Count 8.4 K/mm3 (4.4-11.0)
[2019-10-12 06:55] LABS: Bedside Glucose 103 mg/dL (70-110)
[2019-10-12 07:10] LABS: AST(SGOT) 15 U/L (15-37); Alanine Aminotransfer ALT/SGPT 20 U/L (13-56); Albumin, Serum 3.2 g/dL (3.2-5.0); Alkaline Phosphatase 93 U/L (45-117); Anion Gap 2 (5-15); BUN 12 mg/dL (7-18); BUN/Creat Ratio 12.1 RATIO (10-20); Calcium,Total 8.8 mg/dL (8.5-10.1); Chloride 105 mmol/L (98-107); Creatinine, Serum 0.99 mg/dL (0.55-1.02); EST Glomerular Filtration Rate 59 mL/min (>60); Est Glom Filt Rate - Afr Amer 71 mL/min (>60); Estimated Creatinine Clearance 45.01 ml/min; Globulin 3.2 g/dL (2.2-4.2); Glucose 97 mg/dL (74-106); Potassium 4.5 mmol/L (3.5-5.1); Protein, Total 6.4 g/dL (6.4-8.2); Sodium Level 137 mmol/L (136-145)
[2019-10-12 07:24] VITALS: PULSE 61
[2019-10-12 07:42] VITALS: BP 154/67; PULSE 63; RESP 14; TEMP 37.2; O2SAT 97
[2019-10-12 07:45] VITALS: O2SAT 95
[2019-10-12] MEDS: Aspirin 81 MG TAB.CHEW PO (07:48)
[2019-10-12] MEDS: hydroCHLOROthiazide 25 MG Tablet PO (07:48)
[2019-10-12] MEDS: amLODIPine 5 MG Tablet PO (07:48)
[2019-10-12] MEDS: Acetaminophen 325 MG Tablet 650 MG PO (07:50)
--- NOTE | 2019-10-12 08:18 | PN.CARD_ITS ---
Subjectve: Patient seen and evaluated. Appears to be doing much better this morning. Objective: Vital Signs Temp Pulse Resp BP Pulse Ox 98.9 F 63 14 154/67 H 95 10/12/19 07:42 10/12/19 07:42 10/12/19 07:42 10/12/19 07:42 10/12/19 07:45 Oxygen Delivery Method Room Air Weight: 199 lb 1.239 oz Body Mass Index (BMI) 33.6 Finger Stick Blood Glucose 103 Intake and Output for Last 24 Hours 10/10/19 10/11/19 10/12/19 23:59 23:59 23:59 Intake Total 480 / 480 1670 / 1670 240 / 240 Balance 480 / 480 1670 / 1670 240 / 240 General: Awake, Alert, Oriented x 3 HEENT: PERRL, EOMI, Sclera Non Icteric Neck: Supple, Good ROM, No Lymph Node Enlargement Lungs: Clear to auscultation Cardiovascular: Regular Rhythm, Normal S1, Normal S2, No Murmurs, No Rubs, No Gallops Vascular: No Carotid Bruits, Normal Femoral Pulses, Normal Radial Pulses, Normal Dorsalis Pedal Pulse, Normal Posterior Tibial Pulses Abdomen: Bowel Sounds Present, Soft, Non Tender, No HSM, No Organomegaly Extremities: No Cyanosis, No Clubbing, No edema Lymphatic: No Lymph Node Enlargement Neurological: No Focal Motor or Sensory Deficit 10/12/19 06:08: WBC 8.4, RBC 5.62 H, Hgb 13.7, Hct 43.6, MCV 77.6 L, MCH 24.4 L, MCHC 31.4 L, Plt Count 376, MPV 10.8, Immature Gran % (Auto) 0.600, Neut % (Auto) 68.5, Lymph % (Auto) 18.6 L, [place] % (Auto) 9.4, Eos % (Auto) 2.1, Baso % (Auto) 0.8, Absolute Neuts (auto) 5.7, Nucleated RBC % 0 10/12/19 06:08: Sodium 137, Potassium 4.5, Chloride 105, Carbon Dioxide 30.0, Anion Gap 2 L, BUN 12, Creatinine 0.99, Est GFR (MDRD) Af Amer 71, Est GFR (MDRD) Non-Af 59 L, BUN/Creatinine Ratio 12.1, Glucose 97, Calcium 8.8, Total Bilirubin 0.50 Rhythm: EKG: ECHO: Stress Test: Cardiac Cath: PCI: CT Surgery: Holter monitor: EPS: PPM: CXR: Chest CT Scan: Medical Necessity - Tobacco Use Smoking Status: Never smoker Assessment/Plan 1. Hypertensive emergency * Patient presented with hypertensive emergency with no EKG changes and had resultant mildly abnormal troponin. Her blood pressures have improved since admission. Her echocardiogram demonstrates preserved ejection fraction with no wall motion abnormalities. My suspicion is that her abnormal cardiac enzymes are likely secondary to demand ischemia. * Would recommend continued watchful waiting. * Continue current antihypertensives. * Would increase hydrochlorothiazide to 25 mg once a day * Added amlodipine 5 mg a day 2. Paroxysmal atrial fibrillation * Patient appears to be maintaining sinus rhythm and has not had a recurrence of the above. * Will continue Xarelto for now as well as the beta-chivo. * 3. Abnormal cardiac enzymes * As noted above the above is likely secondary to demand ischemia. I would not recommend that we make any changes to her medication at this time. * As an outpatient may consider pharmacologic stress testing. * * Thank you for allowing me to participate in the care of your patient. Please don't hesitate to call if any issues arise.
[2019-10-12 10:19] VITALS: BP 159/57; PULSE 71; RESP 14; TEMP 36.6; O2SAT 96
[2019-10-12] MEDS: Pramipexole Di-HCl 0.5 MG Tablet PO (10:23)
[2019-10-12] MEDS: Losartan Potassium 50 MG Tablet PO (10:23)
[2019-10-12] MEDS: Famotidine 20 MG Tablet PO (10:23)
[2019-10-12] MEDS: DULoxetine Hcl 60 MG Capsule PO (10:23)
[2019-10-12] MEDS: Flecainide 100 MG Tablet PO (10:23)
[2019-10-12 10:28] VITALS: BP 159/57; PULSE 71
[2019-10-12] MEDS: Metoprolol Tartrate 100 MG Tablet PO (10:28)
--- NOTE | 2019-10-12 10:45 | CASEMGMT ---
SW did not complete PHQ 9 as per physician patient did not have a TIA or Stroke. Per physician her diagnosis is a migraine. Lila THOMAS MSW
--- NOTE | 2019-10-12 10:47 | DCINST_ITS ---
- Discharge Diagnoses Current Active Problems: Current Active and Chronic Problems (Last Reviewed 10/10/19 @ 17:32 by MARISSA Kennedy) Hypertensive urgency (Acute) TIA (transient ischemic attack) (Acute) Hypertensive emergency (Acute) 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 (Chronic) Obesity (Chronic) You will use the following diet at home:: Cardiac Your food should be the consistency of: Regular Discharge Activity: Return to Normal Activity Weight Bearing Status: Weight bearing as tolerated Call your doctor if you observe: Fever of 101 or Higher, Numbness or Tingling, Change in Color, Inability to urinate, Inability to have a bowel movement, Using more than one pad per hour, Shortness of breath, Dizziness, Fainting spells, Swelling in the ankles, Chest pain, Prolonged hiccoughing, Increased palpitations (irregular heartbeat), Calf discomfort, Uncontrolled pain Allergies/Adverse Reactions: Allergies doxazosin [From Cardura] Allergy (Intermediate, Verified 10/23/18 11:08) difficulty breathing, fatigue amlodipine besylate [From Norvasc] Adverse Reaction (Intermediate, Verified 10/23/18 11:08) Edema in legs (known side effect of Amlodipine) hydrochlorothiazide Adverse Reaction (Intermediate, Verified 10/23/18 11:08) Doesn't feel good unable to urinate Medications to take at Discharge Duloxetine Hcl [Cymbalta] 60 mg PO DAILY 08/24/13 Estrogens, Conjugated [Premarin] 0.625 mg PO DAILY 08/24/13 ergocalciferol (vitamin D2) 1,250 mcg (50,000 unit) capsule 50,000 unit PO WE 05/11/17 levothyroxine 75 mcg tablet 75 mcg PO DAILY 09/08/18 rivaroxaban 15 mg tablet 15 mg PO QPM 04/11/19 Baclofen 10 mg PO QHS PRN PRN 10/10/19 Flecainide Acetate 100 mg PO BID 10/10/19 Ropinirole HCl 1 mg PO DAILY 10/10/19 Amlodipine [Norvasc] 5 mg PO DAILY #30 tab 10/12/19 Aspirin [Aspirin, Baby] 81 mg PO DAILY@0800 #30 tab.chew 10/12/19 Atorvastatin Calcium [Lipitor] 80 mg PO QHS #30 tab 10/12/19 Furosemide 40 mg PO DAILY PRN PRN #0 tab 07/31/20 Hydrochlorothiazide [Hctz] 25 mg PO DAILY #30 tab 10/12/19 Losartan Potassium 50 mg PO BID #60 tab 10/12/19 Metoprolol Tartrate [Lopressor (beta chivo)] 100 mg PO BID #60 tab 10/12/19 The following prescriptions were given: Aspirin [Aspirin, Baby] 81 mg PO DAILY@0800 #30 tab.chew Transmission Status: Pending to [id number] Hydrochlorothiazide [Hctz] 25 mg PO DAILY #30 tab Transmission Status: Pending to [id number] Atorvastatin Calcium [Lipitor] 80 mg PO QHS #30 tab Transmission Status: Pending to [id number] Metoprolol Tartrate [Lopressor (beta chivo)] 100 mg PO BID #60 tab Transmission Status: Pending to [id number] Losartan Potassium 50 mg PO BID #60 tab Transmission Status: Pending to [id number] Amlodipine [Norvasc] 5 mg PO DAILY #30 tab Transmission Status: Pending to [id number] Primary Care Physician: Alphonso May Chi, MD [Primary Care Provider] - Please follow up with your Primary Care Physician in: IN 2 WEEKS Test Results: Test results from this visit will be discussed in further detail at your follow- up appointment, if applicable. Please Follow Up With: Memo Killian MD When: in 3-4 weeks for Migraine headache Please Follow Up With: Kahlil Hallman MD When: in 4weeks for pharmacological stress test
--- NOTE | 2019-10-12 10:48 | DS.PCM_ITS ---
Discharge Date and Diagnosis - Problem List Patient Problems: Active and Suspected Problems (Last Updated 10/13/19 @ 13:34 by Helga Goss) Elevated troponin (Acute 10/10/19) Date of Admission: 10/10/19 Date of Discharge: 10/12/19 - Primary Discharge Diagnosis Acute Problems: Active Problems (Last Reviewed 10/10/19 @ 17:32 by MARISSA Kennedy) Hypertensive urgency (Acute) Hypertensive emergency (Acute) TIA/acute stroke ruled out Acute migraine headache - Secondary Discharge Diagnosis Chronic Problems: Chronic Problems (Last Reviewed 10/10/19 @ 17:32 by MARISSA Kennedy) Hypothyroid (Chronic) 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 (Chronic) Obesity (Chronic) Paroxysmal atrial fibrillation (Chronic) Essential (primary) hypertension (Chronic) Hyperlipidemia (Chronic) Edema (Chronic) Hospital Course and Treatment Operations: None Summary of Care Provided: [] This 69-year-old patient female admitted with hypertensive emergency along with severe headache and left-sided paresthesia and weakness. On admission her blood pressure was 239/91. 1. Hypertensive emergency with evidence of neurological deficit left-sided paresthesia and mildly elevated troponin: Blood pressure is controlled. 156/80. Acute stroke ruled out. The patient is discharged on HCTZ 25 mg daily, metoprolol, losartan and amlodipine. Advised to spread out antihypertensive medication to avoid hypotension. 2. Migraine headache exacerbated by hypertension: Patient had MRI brain which did not show acute intracranial change.CTA of the head and neck was negative, CT of the brain was negative. Patient had neurology consult and impression was migraine headache accelerated hypertension. ESR 16, normal. on aspirin and statin. 3. Indeterminate troponin-EKG negative, EKG normal sinus with book binder sinus rhythm. Seen by product inspection supervisor. Outpatient stress test and follow-up with Dr. mendoza. Patient has had a renal artery duplex in August 2018 that was negative for significant stenosis 3. Paroxysmal atrial fibrillation-she has had ablation in the past and is currently in sinus rhythm. Continue Xarelto, metoprolol held as above 4. Diet-controlled type 2 diabetes mellitus, obesity: A1c 5.6, normal. 5. 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-recent normal TSH, continue Synthroid 6. Dyslipidemia: Total cholesterol 250, LDL 165. Atorvastatin increased to 80 mg daily. DVT prophylaxis: Xarelto Discharge medication reconciliation done. Discharge follow-up instructions completed. Discharge process discussed with the patient and all questions were answered to patient's satisfaction. Prescription sent to the patient's pharmacy. Total time spent, exact 35 minutes on discharge meds reconciliation, examination, coordination of care with nurses and ancillary staff, review of imaging and blood test and discussion with the patient on follow-up instructions Patient Problems: Active and Suspected Problems (Last Updated 10/13/19 @ 13:34 by Helga Goss) Elevated troponin (Acute 10/10/19) Objective: Patient blood pressure is controlled. Seen by product inspection supervisor. HCTZ increased to 25 mg daily. Physical exam General: Oriented x3, Cooperative, lethargic and sleepy in the morning. HEENT: Atraumatic, PERRLA, EOMI, Normocephalic, mild photophobia Oral: No Gingival or Mucosal Lesions/ Ulcerations Neck: Supple, No JVD, Negative Carotid Bruits Lungs: Air entry diminished in bilateral lung bases. No crepitation/rhonchi Cardiovascular: Regular rate, Regular Rhythm, Normal S1, Normal S2, No murmurs. On book binder sinus rhythm with few PVCs. Abdomen: Bowel Sounds Present, Soft, Non Tender, Non-Distended : No renal angle tenderness. No suprapubic tenderness. Extremities: No edema, Capillary Refill Less than 3 Seconds Skin: No rashes, No breakdown Musculoskeletal: No Tenderness to Palpation of Joints or Extremities Neurological: Cranial nerves II-XII grossly intact, Deep Tendon Reflexes 2+/4 and Symmetrical, Neuro grossly intact Psych/Mental Status: Normal Affect, Appropriate. - Physical Exam Vitals/I&O's: Vital Signs Temp Pulse Resp BP Pulse Ox 98 F 71 14 159/57 H 96 10/12/19 10:19 10/12/19 10:28 10/12/19 10:19 10/12/19 10:28 10/12/19 10:19 Oxygen Delivery Method Room Air Weight: 199 lb 1.239 oz Body Mass Index (BMI) 33.6 Finger Stick Blood Glucose 103 Intake and Output for Last 24 Hours 10/10/19 10/11/19 10/12/19 23:59 23:59 23:59 Intake Total 480 / 480 1670 / 1670 240 / 240 Balance 480 / 480 1670 / 1670 240 / 240 Laboratory Results 10/11/19 03:24: ESR 16 10/11/19 11:29: POC Glucose 148 H 10/11/19 17:49: POC Glucose 117 H 10/11/19 21:05: POC Glucose 125 H 10/12/19 06:08: WBC 8.4, RBC 5.62 H, Hgb 13.7, Hct 43.6, MCV 77.6 L, MCH 24.4 L, MCHC 31.4 L, RDW Std Deviation 37.4, RDW Coeff of Luis 13.4, Plt Count 376, MPV 10.8, Immature Gran % (Auto) 0.600, Neut % (Auto) 68.5, Lymph % (Auto) 18.6 L, Mccormick % (Auto) 9.4, Eos % (Auto) 2.1, Baso % (Auto) 0.8, Absolute Neuts (auto) 5.7, Absolute Lymphs (auto) 1.56, Nucleated RBC % 0 10/12/19 06:08: Sodium 137, Potassium 4.5, Chloride 105, Carbon Dioxide 30.0, Anion Gap 2 L, BUN 12, Creatinine 0.99, Estim Creat Clear Calc 45.01, Est GFR (MDRD) Af Amer 71, Est GFR (MDRD) Non-Af 59 L, BUN/Creatinine Ratio 12.1, Glucose 97, Calcium 8.8, Total Bilirubin 0.50, AST 15, ALT 20, Alkaline Phosphatase 93, Total Protein 6.4, Albumin 3.2, Globulin 3.2, Albumin/Globulin Ratio 1.0 10/12/19 06:32: POC Glucose 103 Current Medications Acetaminophen (Tylenol) 650 mg PO Q6H PRN PRN PRN Reason: Pain Score 1-10/Temp > 100.7 F Last Admin: 10/12/19 07:50 Dose: 650 mg Documented by: Al Hydroxide/Mg Hydroxide (Mylanta Ii) 30 ml PO Q6H PRN PRN PRN Reason: Gastric Burning Albuterol Sulfate (Ventolin Aerosols) 2.5 mg INHALATION Q2H PRN PRN PRN Reason: Dyspnea, wheezing Amlodipine Besylate (Norvasc) 5 mg PO DAILY [facility] Last Admin: 10/12/19 07:48 Dose: 5 mg Documented by: Aspirin (Aspirin, Baby) 81 mg PO DAILY@0800 [facility] Last Admin: 10/12/19 07:48 Dose: 81 mg Documented by: Atorvastatin Calcium (Lipitor) 80 mg PO QHS [facility] Last Admin: 10/11/19 21:06 Dose: 80 mg Documented by: Baclofen (Lioresal) 10 mg PO QHS PRN PRN PRN Reason: SPASMS Dextrose (D50w Syringe) 0 gm IV X1 PRN; Protocol PRN Reason: Hypoglycemia Duloxetine HCl (Cymbalta) 60 mg PO DAILY [facility] Last Admin: 10/12/19 10:23 Dose: 60 mg Documented by: Famotidine (Pepcid) 20 mg PO BID [facility] Last Admin: 10/12/19 10:23 Dose: 20 mg Documented by: Flecainide Acetate (Tambocor) 100 mg PO BID [facility] Last Admin: 10/12/19 10:23 Dose: 100 mg Documented by: Glucagon () 1 mg IM .X1 PRN PRN Reason: Hypoglycemia Guaifenesin (Robitussin) 20 ml PO Q4H PRN PRN PRN Reason: COUGH Hydralazine HCl (Apresoline Iv) 10 mg IV Q30M PRN PRN Reason: SBP>170 mmhg Hydrochlorothiazide (Hctz) 25 mg PO DAILY [facility] Last Admin: 10/12/19 07:48 Dose: 25 mg Documented by: Insulin Human Lispro (Humalog Kwikpen (Bkc)) 0 unit SC ACHS [facility]; Protocol Last Admin: 10/12/19 06:35 Dose: Not Given Documented by: Labetalol HCl (Trandate) 10 mg IV Q6H PRN PRN Reason: SBP > 180 Last Admin: 10/11/19 18:02 Dose: 10 mg Documented by: Levothyroxine Sodium (Synthroid) 75 mcg PO DAILY@0600 [facility] Last Admin: 10/12/19 06:35 Dose: 75 mcg Documented by: Losartan Potassium (Cozaar) 50 mg PO BID [facility] Last Admin: 10/12/19 10:23 Dose: 50 mg Documented by: Melatonin (Melatonin) 3 mg PO QHS PRN PRN PRN Reason: INSOMNIA Metoprolol Tartrate (Lopressor (Beta Kianna)) 100 mg PO BID [facility] Last Admin: 10/12/19 10:28 Dose: 100 mg Documented by: Morphine Sulfate () 2 mg IV Q3H PRN PRN PRN Reason: Pain Score 6-10/10 Nitroglycerin (Nitrostat) 0.4 mg SUBLINGUAL Q5M PRN PRN Reason: CARDIAC/CHEST PAIN Ondansetron HCl (Zofran) 4 mg IV Q8H PRN PRN PRN Reason: NAUSEA/VOMITING Last Admin: 10/11/19 01:08 Dose: 4 mg Documented by: Oxycodone HCl (Oxyir) 5 mg PO Q4H PRN PRN PRN Reason: Pain Score 4-5/10 Last Admin: 10/11/19 08:31 Dose: 5 mg Documented by: Pramipexole Dihydrochloride (Mirapex) 0.5 mg PO DAILY [facility] Last Admin: 10/12/19 10:23 Dose: 0.5 mg Documented by: Prochlorperazine Edisylate (Compazine Iv) 5 mg IV Q4H PRN PRN PRN Reason: Breakthrough Nausea/Vomiting Last Admin: 10/11/19 03:45 Dose: 5 mg Documented by: Psyllium Hydrophilic Mucilloid (Metamucil) 1 packet PO DAILY PRN PRN PRN Reason: Constipation Rivaroxaban (Xarelto) 15 mg PO DAILY@1700 [facility] Last Admin: 10/11/19 17:50 Dose: 15 mg Documented by: Senna/Docusate Sodium (Senokot-S, Kathryn-Colace) 2 tablet PO BID PRN PRN PRN Reason: Constipation Sodium Chloride () 10 - 40 ml IV UD PRN PRN Reason: SALINE FLUSH Last Admin: 10/11/19 18:03 Dose: 20 ml Documented by: Throat Lozenges (Cepacol Sore Throat Lozenge) 1 lozenge MUCOUS MEM Q2H PRN PRN PRN Reason: SORE THROAT Discharge Activity: Return to Normal Activity Weight Bearing Status: Weight bearing as tolerated Call your doctor if you observe: Fever of 101 or Higher, Numbness or Tingling, Change in Color, Inability to urinate, Inability to have a bowel movement, Using more than one pad per hour, Shortness of breath, Dizziness, Fainting spells, Swelling in the ankles, Chest pain, Prolonged hiccoughing, Increased palpitations (irregular heartbeat), Calf discomfort, Uncontrolled pain Home Medications: Medications to take at Discharge RX: Duloxetine Hcl [Cymbalta] 60 mg PO DAILY 08/24/13 RX: Estrogens, Conjugated [Premarin] 0.625 mg PO DAILY 08/24/13 ergocalciferol (vitamin D2) 1,250 mcg (50,000 unit) capsule 50,000 unit PO WE 05/11/17 levothyroxine 75 mcg tablet 75 mcg PO DAILY 09/08/18 rivaroxaban 15 mg tablet 15 mg PO QPM 04/11/19 RX: Baclofen 10 mg PO QHS PRN PRN 10/10/19 RX: Flecainide Acetate 100 mg PO BID 10/10/19 RX: Ropinirole HCl 1 mg PO DAILY 10/10/19 RX: Amlodipine [Norvasc] 5 mg PO DAILY #30 tab 10/12/19 RX: Aspirin [Aspirin, Baby] 81 mg PO DAILY@0800 #30 tab.chew 10/12/19 RX: Atorvastatin Calcium [Lipitor] 80 mg PO QHS #30 tab 10/12/19 RX: Furosemide 40 mg PO DAILY PRN PRN #0 tab 10/12/19 RX: Hydrochlorothiazide [Hctz] 25 mg PO DAILY #30 tab 10/12/19 RX: Losartan Potassium 50 mg PO BID #60 tab 10/12/19 RX: Metoprolol Tartrate [Lopressor (beta kianna)] 100 mg PO BID #60 tab 10/12/19 Following Prescriptions Were Given to Patient: RX: Aspirin [Aspirin, Baby] 81 mg PO DAILY@0800 #30 tab.chew Transmission Status: Received by [id number] RX: Hydrochlorothiazide [Hctz] 25 mg PO DAILY #30 tab Transmission Status: Received by [id number] RX: Atorvastatin Calcium [Lipitor] 80 mg PO QHS #30 tab Transmission Status: Received by [id number] RX: Metoprolol Tartrate [Lopressor (beta kianna)] 100 mg PO BID #60 tab Transmission Status: Received by [id number] RX: Losartan Potassium 50 mg PO BID #60 tab Transmission Status: Received by [id number] RX: Amlodipine [Norvasc] 5 mg PO DAILY #30 tab Transmission Status: Received by [id number] Primary Care Physician: Alphonso May Chi, MD [Primary Care Provider] - Please follow up with your Primary Care Physician in: IN 2 WEEKS Please Follow Up With: Memo Killian MD When: in 3-4 weeks for Migraine headache Please Follow Up With: Lexx,Kahlil, MD When: in 4weeks for pharmacological stress test Medical Necessity - Tobacco Use Smoking Status: Never smoker Meaningful Use Info Meaningful Use Diagnoses (Choose all that apply): None applicable Inpatient E&M: 62009 Disch Hosp
--- NOTE | 2019-10-12 11:51 | PHA.DC.MC ---
Pharmacy Service has performed discharge medication reconciliation and counseling for this patient. 1. ASPIRIN 81MG PO DAILYCM 2. HYDROCHLOROTHIAZIDE 25MG PO DAILY 3. ATORVASTATIN 80MG PO QHS The patient's discharge medication list was reviewed for discrepancies and discrepancies were resolved. Home Medications Duloxetine Hcl [Cymbalta] 60 mg PO DAILY 08/24/13 Estrogens, Conjugated [Premarin] 0.625 mg PO DAILY 08/24/13 ergocalciferol (vitamin D2) 1,250 mcg (50,000 unit) capsule 50,000 unit PO WE 05/11/17 levothyroxine 75 mcg tablet 75 mcg PO DAILY 09/08/18 rivaroxaban 15 mg tablet 15 mg PO QPM 04/11/19 Baclofen 10 mg PO QHS PRN PRN 10/10/19 Flecainide Acetate 100 mg PO BID 10/10/19 Ropinirole HCl 1 mg PO DAILY 10/10/19 Amlodipine [Norvasc] 5 mg PO DAILY #30 tab 10/12/19 Aspirin [Aspirin, Baby] 81 mg PO DAILY@0800 #30 tab.chew 10/12/19 Atorvastatin Calcium [Lipitor] 80 mg PO QHS #30 tab 10/12/19 Furosemide 40 mg PO DAILY PRN PRN #0 tab 10/12/19 Hydrochlorothiazide [Hctz] 25 mg PO DAILY #30 tab 10/12/19 Losartan Potassium 50 mg PO BID #60 tab 10/12/19 Metoprolol Tartrate [Lopressor (beta chivo)] 100 mg PO BID #60 tab 10/12/19 The patient was counseled on the following discharge medications and changes in medications for homegoing were reviewed. The Reason for Use, instructions for use, and potential side effects were reviewed for all new medications. The patient's questions regarding all of their medications were answered. The patient was able to verbally demonstrate an understanding of their discharge medications. Patient counseled by pharmacy aide, Tay.
--- NOTE | 2019-10-15 12:06 | CASEMGMT ---
KAY OLIVER Discharge Follow-up Phone Call: RENETTA: Edward Strata: 3 Call Date: 10/15/19 Discharge Date: 10/12/19 Time of Call: 1205 Duration: 1 min Admitting Diagnosis: TIA, HTN urgency KAY OLIVER attempted to complete follow-up phone call after recent hospitalization. No answer, voice message left with return call back inform. Patient had instructions for follow-up appts with specialist to schedule and had appt with PCP scheduled.
== END 2019-10-12 12:04 | disposition home or self-care (01) | DRG 305 ==
LOC: ED 16:50 → PCU 10-11 06:17
PROVIDERS: Admitting Provider Family Medicine; Emergency Provider Emergency Medicine; PCP Family Medicine Geriatric Medicine; Visit Provider Internal Medicine
DX: I16.1 Hypertensive emergency (principal); I24.8 Other forms of acute ischemic heart disease; G81.94 Hemiplegia, unspecified affecting left nondominant side; I48.0 Paroxysmal atrial fibrillation; E03.9 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, unspecified; I10 Essential (primary) hypertension; G43.909 Migraine, unspecified, not intractable, without status migrainosus; E78.5 Hyperlipidemia, unspecified; E11.9 Type 2 diabetes mellitus without complications; E66.9 Obesity, unspecified; Z68.35 Body mass index [BMI] 35.0-35.9, adult; Z79.01 Long term (current) use of anticoagulants; Z79.890 Hormone replacement therapy; Z79.82 Long term (current) use of aspirin; Z80.3 Family history of malignant neoplasm of breast; Z90.49 Acquired absence of other specified parts of digestive tract; Z90.710 Acquired absence of both cervix and uterus
CPT/HCPCS: 36415; 70450; 70496; 70498; 70551; 71045; 80048; 80053; 80061; 82962; 83036; 83735; 84484; 85025; 85610; 85652; 85730; 92522; 92610; 93005; 93306; 97162; 97802; 99251; 99285; Q9957; Q9967; A4216; G0463; J2405

== ENCOUNTER → 2020-03-26 13:11 | Outpatient (CLI) | payer MEDICARE, OTHER, SELFPAY ==
[2020-01-01 11:26] VITALS: BMI 34.7
[2020-03-26 16:39] LABS: Absolute Lymphocyte Count 1.74 X10^3/uL (0.83-4.51); Absolute Neutrophil Count 4.3 X10^3/uL (2.0-7.7); Basophil# 0.08 X10^3/uL; Basophil% 1.1 % (0-1); Eosinophils% 4.2 % (0-5); Hematocrit 37.9 % (37-47); Hemoglobin 11.8 g/dL (12.0-15.0); Lymphocyte # 1.74 X10^3/ul (4.0); Lymphocyte % 24.5 % (19-41); Mean Corp Hgb Conc 31.1 g/dL (32-36); Mean Corpuscular Hgb 24.3 pg (27.0-32.0); Monocyte# 0.64 X10^3/uL; NRBC Flagged by Analyzer 0 % (0-5); Neutrophil # 4.31 X10^3/uL (2.7-7.7); Neutrophil % 60.8 % (47-70); Platelet Count 366 K/mm3 (150-450); RBC Distribution Width CV 13.1 % (11.6-14.6); RBC Distribution Width SD 37.1 fl (35.1-43.9); Red Blood Count 4.86 M/mm3 (4.2-5.4); White Blood Count 7.1 K/mm3 (4.4-11.0)
[2020-03-26 17:02] LABS: ALB/GLOB Ratio 0.9 RATIO (0.9-2.4); AST(SGOT) 16 U/L (15-37); Alanine Aminotransfer ALT/SGPT 27 U/L (13-56); Albumin, Serum 3.3 g/dL (3.2-5.0); Alkaline Phosphatase 70 U/L (45-117); Anion Gap 4 (5-15); BUN 22 mg/dL (7-18); BUN/Creat Ratio 19.3 RATIO (10-20); Calcium,Total 8.8 mg/dL (8.5-10.1); Chloride 95 mmol/L (98-107); Creatinine, Serum 1.14 mg/dL (0.55-1.02); EST Glomerular Filtration Rate 50 mL/min (>60); Est Glom Filt Rate - Afr Amer 60 mL/min (>60); Globulin 3.5 g/dL (2.2-4.2); Glucose 84 mg/dL (74-106); Potassium 3.1 mmol/L (3.5-5.1); Protein, Total 6.8 g/dL (6.4-8.2); Sodium Level 133 mmol/L (136-145); Thyroid Stim Hormone (TSH) 1.56 uIU/mL (0.358-3.74)
[2020-03-26 17:15] LABS: Vitamin D,25 Hydroxy 55.8 ng/mL
[2020-03-27 08:33] LABS: Iron 77 ug/dL (50-170)
== END ==
PROVIDERS: PCP Family Medicine Geriatric Medicine; Visit Provider Family Medicine Geriatric Medicine
DX: E55.9 Vitamin D deficiency, unspecified (principal); I10 Essential (primary) hypertension; D50.9 Iron deficiency anemia, unspecified; E03.8 Other specified hypothyroidism
CPT/HCPCS: 36415; 80053; 82306; 83540; 84443; 85025

== ENCOUNTER → 2020-04-03 15:19 | Outpatient (CLI) | payer MEDICARE, OTHER, SELFPAY ==
[2020-01-01 11:26] VITALS: BMI 34.7
[2020-04-03 18:22] LABS: Anion Gap 5 (5-15); BUN 15 mg/dL (7-18); BUN/Creat Ratio 14.7 RATIO (10-20); Calcium,Total 8.6 mg/dL (8.5-10.1); Chloride 101 mmol/L (98-107); Creatinine, Serum 1.02 mg/dL (0.55-1.02); EST Glomerular Filtration Rate 57 mL/min (>60); Est Glom Filt Rate - Afr Amer 69 mL/min (>60); Glucose 90 mg/dL (74-106); Potassium 3.7 mmol/L (3.5-5.1); Sodium Level 135 mmol/L (136-145)
== END ==
PROVIDERS: PCP Family Medicine Geriatric Medicine; Visit Provider Family Medicine Geriatric Medicine
DX: E87.6 Hypokalemia (principal)
CPT/HCPCS: 36415; 80048

== ENCOUNTER → 2020-04-03 15:30 | Outpatient (CLI) | payer MEDICARE, OTHER, SELFPAY ==
[2020-01-01 11:26] VITALS: BMI 34.7
== END ==
PROVIDERS: PCP Family Medicine Geriatric Medicine; Visit Provider Family Medicine Geriatric Medicine
DX: E87.6 Hypokalemia (principal)

== ENCOUNTER → 2020-06-13 15:21 | Outpatient (CLI) | payer MEDICARE, OTHER, SELFPAY ==
[2020-01-01 11:26] VITALS: BMI 34.7
--- NOTE | 2020-06-13 10:20 | COLBX_PTH ---
PATIENT: VIC CEDENO LOC: [facility] U#:[id number] AGE/SX: 74/F ROOM: RE06/13/[address]: Dr. Josh Black MD : 1950 BED: DIS: SPEC #: [id number] RECD: 06/13/20 15:01 STATUS: ELVA SOARES #: [id number] GABBY: 06/13/20 10:[address]: Josh Black DEPT: SURGICAL PATHOLOGY RECD BY: Rylee Butts ENTERED: 06/16/20 08:18 SP TYPE: COLON BX OTHR DR: Dr. Alphonso May MD [facility] Tissues: A - COLON BIOPSY B - COLON BIOPSY Procedures: Surgery Specimen Level IV HEADER OPERATION: Colonoscopy with biopsies PRE-OP DIAGNOSIS: Screening colonoscopy TISSUE SUBMITTED: A - Right colon biopsy, rule out adenoma, B - Hepatic flexure biopsy, rule out adenoma MICROSCOPIC DIAGNOSIS A. Right colon, biopsy: Fragments of tubular adenoma. B. Hepatic flexure, biopsy: Fragments of hyperplastic polyp. STEVE:bon 06/17/2020 MICROSCOPIC DESCRIPTION Slides are reviewed. GROSS DESCRIPTION A - Received in fixative is one container labeled with the patient's name and designated right colon biopsy. The specimen consists of multiple irregular fragments of light bowman soft tissue that in aggregate measure 0.5 x 0.5 x 0.1 cm. The specimen is totally submitted in one cassette. B - Received in fixative is one container labeled with the patient's name and designated distal ascending hepatic flexure biopsy. The specimen consists of multiple irregular fragments of light bowman soft tissue that in aggregate measure 0.6 x 0.3 x 0.1 cm. The specimen is totally submitted in one cassette. / STEVE:bon 06/16/20 TC:1 CPT: 42279 x2
== END ==
PROVIDERS: PCP Family Medicine Geriatric Medicine; Referring Provider Internal Medicine Gastroenterology; Visit Provider Internal Medicine Gastroenterology
DX: Z12.11 Encounter for screening for malignant neoplasm of colon (principal)
CPT/HCPCS: 88305

== ENCOUNTER → 2020-07-03 13:49 | Outpatient (CLI) | payer MEDICARE, OTHER, SELFPAY ==
[2020-01-01 11:26] VITALS: BMI 34.7
--- NOTE | 2020-07-03 13:55 | RAD_ITS ---
INDICATION: low back pain EXAMINATION/TECHNIQUE: X-RAY - XR Spine Lumbar 2 or 3 Views COMPARISON: 05/08/2019.. FINDINGS: VERTEBRAE: Preserved vertebral body height. No fracture. No spondylolisthesis. Preservation of the normal lumbar lordosis. Severe multilevel facet arthropathy. DISCS: Severe disc space narrowing and osteophytosis at L5-S1. Status post interbody cage fusion at L3/L4 with anatomic alignment. INCLUDED ABDOMEN: Included bowel gas pattern is non-obstructive. RAD/Lumbar Spine 2 or 3 Views IMPRESSION: No acute abnormalities. Severe spondylosis at L5-S1. Severe multilevel facet arthropathy. Status post interbody cage fusion at L3/L4 with anatomic alignment. Electronically Signed: Jean Carlos Jones MD at 20:05 EDT Tel , Service support ,
== END ==
PROVIDERS: PCP Family Medicine Geriatric Medicine; Referring Provider Psychiatry & Neurology Neurology; Visit Provider Psychiatry & Neurology Neurology
DX: M54.5 Low back pain (principal)
CPT/HCPCS: 72100

== ENCOUNTER → 2020-07-29 13:18 | Outpatient (CLI) | payer MEDICARE, OTHER, SELFPAY ==
[2020-01-01 11:26] VITALS: BMI 34.7
[2020-07-29 17:33] LABS: Absolute Lymphocyte Count 1.95 X10^3/uL (0.83-4.51); Absolute Neutrophil Count 5.1 X10^3/uL (2.0-7.7); Basophil# 0.09 X10^3/uL; Basophil% 1.1 % (0-1); Eosinophil# 0.18 X10^3/uL; Eosinophils% 2.2 % (0-5); Hematocrit 40.5 % (37-47); Hemoglobin 12.5 g/dL (12.0-15.0); Lymphocyte # 1.95 X10^3/ul (0.83-4.51); Lymphocyte % 24.3 % (19-41); Mean Corp Hgb Conc 30.9 g/dL (32-36); Mean Corpuscular Volume 77.7 fL (81-99); Mean Platelet Vol. 10.9 fl (6.2-12.0); Monocyte% 7.5 % (0-10); NRBC Flagged by Analyzer 0 % (0-5); Neutrophil # 5.13 X10^3/uL (2.7-7.7); Platelet Count 384 K/mm3 (150-450); RBC Distribution Width CV 14.2 % (11.6-14.6); RBC Distribution Width SD 39.6 fl (35.1-43.9); Red Blood Count 5.21 M/mm3 (4.2-5.4)
[2020-07-29 17:54] LABS: Vitamin D,25 Hydroxy 34.4 ng/mL
[2020-07-29 18:51] LABS: AST(SGOT) 22 U/L (15-37); Alanine Aminotransfer ALT/SGPT 35 U/L (13-56); Albumin, Serum 3.4 g/dL (3.2-5.0); Alkaline Phosphatase 65 U/L (45-117); Anion Gap 7 (5-15); BUN 16 mg/dL (7-18); BUN/Creat Ratio 13.9 RATIO (10-20); Calcium,Total 8.5 mg/dL (8.5-10.1); Chloride 97 mmol/L (98-107); Creatinine, Serum 1.15 mg/dL (0.55-1.02); EST Glomerular Filtration Rate 49 mL/min (>60); Est Glom Filt Rate - Afr Amer 60 mL/min (>60); Globulin 3.3 g/dL (2.2-4.2); Glucose 86 mg/dL (74-106); Potassium 3.8 mmol/L (3.5-5.1); Protein, Total 6.7 g/dL (6.4-8.2); Sodium Level 136 mmol/L (136-145); Thyroid Stim Hormone (TSH) 1.19 uIU/mL (0.358-3.74); Uric Acid 6.1 mg/dL (2.6-6.0)
== END ==
PROVIDERS: PCP Family Medicine Geriatric Medicine; Visit Provider Family Medicine Geriatric Medicine
DX: E55.9 Vitamin D deficiency, unspecified (principal); I10 Essential (primary) hypertension; M10.9 Gout, unspecified
CPT/HCPCS: 36415; 80053; 82306; 84443; 84550; 85025

== ENCOUNTER → 2020-08-06 16:07 | Outpatient (CLI) | payer MEDICARE, OTHER, SELFPAY ==
[2020-01-01 11:26] VITALS: BMI 34.7
--- NOTE | 2020-08-06 16:34 | RAD_ITS ---
STUDY: X-RAY - LUMBAR SPINE REASON FOR EXAM: Female, 69 years old. BACK PAIN TECHNIQUE: 3 view(s) of the lumbar spine were obtained. COMPARISON: None FINDINGS: Normal lumbar lordosis. There is no substantial scoliosis. There is a normal alignment of the vertebrae. Normal vertebral bodies and endplates. Narrowed L4-5 and L5-S1 disc spaces. Laminectomy at L4. Disc spacer at L3-4. The soft tissue structures are unremarkable. RAD/Lumbar Spine 2 or 3 Views IMPRESSION: Post surgical changes as noted of the lumbar spine. Electronically Signed: James Quinones DO at 18:54 EDT [id number] This report is pending additional review. Service support ,
== END ==
PROVIDERS: PCP Family Medicine Geriatric Medicine; Referring Provider Anesthesiology Pain Medicine; Visit Provider Anesthesiology Pain Medicine
DX: M54.9 Dorsalgia, unspecified (principal)
CPT/HCPCS: 72100

== ENCOUNTER → 2020-08-14 15:34 | Outpatient (CLI) | payer MEDICARE, OTHER, SELFPAY ==
[2020-01-01 11:26] VITALS: BMI 34.7
[2020-08-08 13:59] VITALS: BMI 33.5
--- NOTE | 2020-08-14 15:37 | BI_ITS ---
MAMMOGRAPHY - BILATERAL SCREENING REASON FOR EXAM: Female, 70 years old. Routine annual screening examination. PERTINENT HISTORY: Mother with breast cancer. Aunts with breast cancer. TECHNIQUE: Digital bilateral breast denice (3D mammographic acquisition) in the CC and MLO projections. 2-D mediolateral oblique (MLO) and craniocaudad (CC) views of both breasts were obtained. CAD: Full Field Digital Mammography with Computer Added Detection was performed. COMPARISON: Comparison is made with prior examination dated 08/16/2018 and 07/27/2016. FINDINGS: Breast Composition: The breasts are heterogeneously dense, which may obscure small masses. There are no dominant masses or suspicious calcifications. Stable small benign-appearing bilateral axillary methods. No other significant abnormalities are identified. There has been no significant change since the prior study. BI/SCRN MAMM (CAD)W/DENICE BILAT IMPRESSION: Stable bilateral screening mammogram. Yearly follow-up mammogram recommended. (A) ASSESSMENT CATEGORY: BIRADS Category 2: Benign. A letter regarding these results will be sent to the patient by the facility within 30 days. Approximately 10% of breast cancers are not detected by mammography. A normal mammogram should not delay biopsy of a clinically suspicious abnormality. [id number] Electronically Signed: Neil Rosario MD at 8:10 EDT , Service support ,
== END ==
PROVIDERS: PCP Family Medicine Geriatric Medicine; Referring Provider Family Medicine Geriatric Medicine; Visit Provider Family Medicine Geriatric Medicine
DX: Z12.31 Encounter for screening mammogram for malignant neoplasm of breast (principal)
CPT/HCPCS: 77063; 77067

== ENCOUNTER → 2020-09-10 14:07 | Outpatient (CLI) | payer MEDICARE, OTHER, SELFPAY ==
[2020-09-01 14:56] VITALS: BMI 33.5
--- NOTE | 2020-09-10 14:25 | RAD_ITS ---
HISTORY: HIP PAIN. TECHNIQUE: XR Hip Unilateral with Pelvis when performed; 2-3 Views. # of images incl. paperwork: 3. COMPARISON: 09/20/2016. FINDINGS: OSSEOUS STRUCTURES: No acute displaced fracture identified. Note that overlapping bowel shadows may obscure detail. Mild osteopenia. ALIGNMENT/JOINTS: No dislocation. Mild degenerative changes of the hips. RAD/HIP, UNI W/ Pelvis 2-3 Views IMPRESSION: No acute fracture or dislocation identified in the left hip. at 1638 Reported and signed by: Kriss Ricardo MD Electronically Signed: Kriss Ricardo MD at 16:37 EDT Tel , Service support ,
--- NOTE | 2020-09-10 14:29 | RAD_ITS ---
STUDY: X-RAY - RIGHT HIP REASON FOR EXAM: Female, 70 years old. Right hip pain. TECHNIQUE: 2 views of the hip. COMPARISON: None. FINDINGS: Normal femoral head, neck, intertrochanteric region and visualized proximal femur. Normal acetabulum. There is mild articular joint space narrowing. Normal visualized superior and inferior pubic rami and ischial tuberosities. Soft tissues are unremarkable. RAD/Hip Min 2 Views (Portable) IMPRESSION: Minimal degenerative changes of the right hip without fracture or dislocation. Electronically Signed: Abhijeet Reddy DO at 16:30 EDT Tel [phone], Service support ,
[2020-09-10 16:10] LABS: Amphetamine Urine VISTA NEGATIVE (<1000 ng/mL); Barbiturate Urine VISTA NEGATIVE (< 200 ng/mL); Benzodiazepine Urine VISTA NEGATIVE (< 200 ng/mL); Cocaine Urine VISTA NEGATIVE (< 300 ng/mL); Ecstacy Urine VISTA NEGATIVE (< 500 ng/mL); Methadone Urine VISTA NEGATIVE (< 300 ng/mL); PCP Urine VISTA NEGATIVE (< 25 ng/mL); THC Urine VISTA NEGATIVE (< 50 ng/mL); Vista UDS pH Range 7
== END ==
PROVIDERS: PCP Family Medicine Geriatric Medicine; Referring Provider Anesthesiology Pain Medicine; Visit Provider Anesthesiology Pain Medicine
DX: F11.20 Opioid dependence, uncomplicated (principal); M25.559 Pain in unspecified hip
CPT/HCPCS: 73502; 80307

== ENCOUNTER → 2020-10-07 12:20 | Outpatient (CLI) | payer MEDICARE, OTHER, SELFPAY ==
[2020-09-19 13:23] VITALS: BMI 33.9
[2020-10-07 13:44] LABS: Thyroid Stim Hormone (TSH) 0.69 uIU/mL (0.358-3.74)
== END ==
PROVIDERS: PCP Family Medicine Geriatric Medicine; Referring Provider Internal Medicine Endocrinology, Diabetes & Metabolism; Visit Provider Internal Medicine Endocrinology, Diabetes & Metabolism
DX: E03.8 Other specified hypothyroidism (principal); E04.9 Nontoxic goiter, unspecified
CPT/HCPCS: 36415; 84443

== ENCOUNTER → 2020-12-16 14:37 | Outpatient (CLI) | payer MEDICARE, OTHER, SELFPAY ==
--- NOTE | 2020-12-16 15:05 | RAD_ITS ---
INDICATION: FOOT PAIN EXAMINATION/TECHNIQUE: X-RAY - LEFT XR Foot Min 3 Views 3 VIEWS COMPARISON: None. FINDINGS: SOFT TISSUES: Soft tissue swelling visualized most prominent surrounding the forefoot/metatarsophalangeal joints. No radiopaque foreign body. BONES/JOINTS: No acute fracture or subluxation.. Unremarkable alignment. Degenerative changes visualized most prominent in the interphalangeal joints. Inferior calcaneal spur is seen. No sclerotic or destructive changes observed. RAD/Foot min 3 Views IMPRESSION: Degenerative changes, no acute osseous abnormality is seen. Electronically Signed: Christian Teixeira MD at 9:00 EDT Tel , Service support ,
[2020-12-16 15:40] LABS: Absolute Lymphocyte Count 1.45 X10^3/uL (0.83-4.51); Absolute Neutrophil Count 4.5 X10^3/uL (2.0-7.7); Basophil# 0.07 X10^3/uL; Eosinophil# 0.22 X10^3/uL; Eosinophils% 3.2 % (0-5); Hematocrit 39.1 % (37-47); Hemoglobin 12.4 g/dL (12.0-15.0); Lymphocyte # 1.45 X10^3/ul (0.83-4.51); Mean Corp Hgb Conc 31.7 g/dL (32-36); Mean Corpuscular Hgb 24.5 pg (27.0-32.0); Mean Corpuscular Volume 77.3 fL (81-99); Mean Platelet Vol. 10.9 fl (6.2-12.0); Monocyte# 0.62 X10^3/uL; NRBC Flagged by Analyzer 0 % (0-5); Neutrophil # 4.51 X10^3/uL (2.7-7.7); Neutrophil % 65.2 % (47-70); Platelet Count 356 K/mm3 (150-450); RBC Distribution Width CV 13.2 % (11.6-14.6); Red Blood Count 5.06 M/mm3 (4.2-5.4); White Blood Count 6.9 K/mm3 (4.4-11.0)
[2020-12-16 15:59] LABS: Erythrocyte Sedimentation Rate 14 mm/hr (0-30)
[2020-12-16 16:08] LABS: Anion Gap 8 (5-15); BUN 16 mg/dL (7-18); BUN/Creat Ratio 14.5 RATIO (10-20); Calcium,Total 8.9 mg/dL (8.5-10.1); Chloride 96 mmol/L (98-107); EST Glomerular Filtration Rate 52 mL/min (>60); Est Glom Filt Rate - Afr Amer 63 mL/min (>60); Glucose 97 mg/dL (74-106); Potassium 3.5 mmol/L (3.5-5.1); Sodium Level 135 mmol/L (136-145); Uric Acid 6.3 mg/dL (2.6-6.0)
== END ==
LOC: POLAB3 14:41 → RAD 14:58
PROVIDERS: PCP Family Medicine Geriatric Medicine; Referring Provider Family Medicine Geriatric Medicine; Visit Provider Family Medicine Geriatric Medicine
DX: R79.9 Abnormal finding of blood chemistry, unspecified (principal); M79.609 Pain in unspecified limb
CPT/HCPCS: 36415; 73630; 80048; 84550; 85025; 85652; 86140

== ENCOUNTER → 2021-01-27 13:13 | Outpatient (CLI) | payer MEDICARE, OTHER, SELFPAY ==
[2021-01-27 17:20] LABS: Absolute Lymphocyte Count 1.48 X10^3/uL (0.83-4.51); Absolute Neutrophil Count 5.1 X10^3/uL (2.0-7.7); Basophil# 0.08 X10^3/uL; Basophil% 1.1 % (0-1); Eosinophil# 0.13 X10^3/uL; Eosinophils% 1.8 % (0-5); Hematocrit 40.1 % (37-47); Hemoglobin 12.6 g/dL (12.0-15.0); Lymphocyte # 1.48 X10^3/ul (0.83-4.51); Lymphocyte % 20.2 % (19-41); Mean Corp Hgb Conc 31.4 g/dL (32-36); Mean Corpuscular Hgb 24.3 pg (27.0-32.0); Mean Corpuscular Volume 77.4 fL (81-99); Mean Platelet Vol. 10.8 fl (6.2-12.0); Monocyte% 6.8 % (0-10); NRBC Flagged by Analyzer 0 % (0-5); Neutrophil % 69.6 % (47-70); Platelet Count 369 K/mm3 (150-450); RBC Distribution Width CV 13.6 % (11.6-14.6); RBC Distribution Width SD 38.3 fl (35.1-43.9); Red Blood Count 5.18 M/mm3 (4.2-5.4); White Blood Count 7.3 K/mm3 (4.4-11.0)
[2021-01-27 17:52] LABS: Vitamin D,25 Hydroxy 38.1 ng/mL
[2021-01-27 17:53] LABS: ALB/GLOB Ratio 0.9 RATIO (0.9-2.4); AST(SGOT) 21 U/L (15-37); Alanine Aminotransfer ALT/SGPT 36 U/L (13-56); Albumin, Serum 3.2 g/dL (3.2-5.0); Alkaline Phosphatase 54 U/L (45-117); Anion Gap 7 (5-15); BUN 14 mg/dL (7-18); BUN/Creat Ratio 13.6 RATIO (10-20); Calcium,Total 8.5 mg/dL (8.5-10.1); Chloride 97 mmol/L (98-107); Creatinine, Serum 1.03 mg/dL (0.55-1.02); EST Glomerular Filtration Rate 56 mL/min (>60); Est Glom Filt Rate - Afr Amer 68 mL/min (>60); Globulin 3.4 g/dL (2.2-4.2); Glucose 100 mg/dL (74-106); Potassium 3.8 mmol/L (3.5-5.1); Protein, Total 6.6 g/dL (6.4-8.2); Sodium Level 133 mmol/L (136-145); Thyroid Stim Hormone (TSH) 1.44 uIU/mL (0.358-3.74); Uric Acid 5.2 mg/dL (2.6-6.0)
== END ==
PROVIDERS: PCP Family Medicine Geriatric Medicine; Visit Provider Family Medicine Geriatric Medicine
DX: E11.9 Type 2 diabetes mellitus without complications (principal); E55.9 Vitamin D deficiency, unspecified; I10 Essential (primary) hypertension; M10.9 Gout, unspecified
CPT/HCPCS: 36415; 80053; 82306; 84443; 84550; 85025

== ENCOUNTER → 2021-07-30 | Outpatient (CLI) | payer MEDICARE, OTHER, SELFPAY ==
[2021-07-30 16:22] LABS: Absolute Lymphocyte Count 1.51 X10^3/uL (0.83-4.51); Absolute Neutrophil Count 4.1 X10^3/uL (2.0-7.7); Basophil# 0.07 X10^3/uL; Basophil% 1.1 % (0-1); Eosinophil# 0.19 X10^3/uL; Hematocrit 39.7 % (37-47); Hemoglobin 12.4 g/dL (12.0-15.0); Lymphocyte # 1.51 X10^3/ul (0.83-4.51); Lymphocyte % 23.6 % (19-41); Mean Corp Hgb Conc 31.2 g/dL (32-36); Mean Corpuscular Hgb 24.5 pg (27.0-32.0); Mean Corpuscular Volume 78.3 fL (81-99); Mean Platelet Vol. 11.2 fl (6.2-12.0); Monocyte# 0.47 X10^3/uL; Monocyte% 7.3 % (0-10); NRBC Flagged by Analyzer 0 % (0-5); Neutrophil # 4.14 X10^3/uL (2.7-7.7); Neutrophil % 64.5 % (47-70); Platelet Count 276 K/mm3 (150-450); RBC Distribution Width CV 13.7 % (11.6-14.6); RBC Distribution Width SD 38.7 fl (35.1-43.9); Red Blood Count 5.07 M/mm3 (4.2-5.4); White Blood Count 6.4 K/mm3 (4.4-11.0)
[2021-07-30 16:47] LABS: Vitamin D,25 Hydroxy 40.6 ng/mL
[2021-07-30 16:56] LABS: ALB/GLOB Ratio 1.1 RATIO (0.9-2.4); AST(SGOT) 17 U/L (15-37); Alanine Aminotransfer ALT/SGPT 27 U/L (13-56); Albumin, Serum 3.4 g/dL (3.2-5.0); Alkaline Phosphatase 60 U/L (45-117); Anion Gap 5 (5-15); BUN 16 mg/dL (7-18); BUN/Creat Ratio 16.1 RATIO (10-20); Calcium,Total 8.7 mg/dL (8.5-10.1); Chloride 100 mmol/L (98-107); Creatinine, Serum 0.99 mg/dL (0.55-1.02); EST Glomerular Filtration Rate 58 mL/min (>60); Est Glom Filt Rate - Afr Amer 71 mL/min (>60); Globulin 3.2 g/dL (2.2-4.2); Glucose 87 mg/dL (74-106); Protein, Total 6.6 g/dL (6.4-8.2); Sodium Level 136 mmol/L (136-145); Thyroid Stim Hormone (TSH) 0.91 uIU/mL (0.358-3.74); Uric Acid 5.3 mg/dL (2.6-6.0)
== END | disposition home or self-care (01) ==
LOC: POLAB3 12:54
PROVIDERS: PCP Family Medicine Geriatric Medicine; Visit Provider Family Medicine Geriatric Medicine
DX: E11.9 Type 2 diabetes mellitus without complications (principal); E55.9 Vitamin D deficiency, unspecified; I10 Essential (primary) hypertension; M10.9 Gout, unspecified
CPT/HCPCS: 36415; 80053; 82306; 84443; 84550; 85025

== ENCOUNTER → 2021-08-19 | Outpatient (CLI) | payer MEDICARE, OTHER, SELFPAY ==
[2021-08-19 17:17] LABS: Anion Gap 4 (5-15); BUN 16 mg/dL (7-18); BUN/Creat Ratio 16.2 RATIO (10-20); Calcium,Total 9.2 mg/dL (8.5-10.1); Chloride 100 mmol/L (98-107); Creatinine, Serum 0.98 mg/dL (0.55-1.02); EST Glomerular Filtration Rate 59 mL/min (>60); Est Glom Filt Rate - Afr Amer 71 mL/min (>60); Glucose 95 mg/dL (74-106); Potassium 3.8 mmol/L (3.5-5.1); Sodium Level 136 mmol/L (136-145)
[2021-08-19 17:18] LABS: Absolute Lymphocyte Count 1.78 X10^3/uL (0.83-4.51); Absolute Neutrophil Count 3.7 X10^3/uL (2.0-7.7); Basophil# 0.08 X10^3/uL; Basophil% 1.3 % (0-1); Eosinophils% 3.2 % (0-5); Hematocrit 39.4 % (37-47); Hemoglobin 12.4 g/dL (12.0-15.0); Lymphocyte # 1.78 X10^3/ul (0.83-4.51); Lymphocyte % 28.4 % (19-41); Mean Corp Hgb Conc 31.5 g/dL (32-36); Mean Corpuscular Hgb 24.5 pg (27.0-32.0); Mean Corpuscular Volume 77.7 fL (81-99); Mean Platelet Vol. 11.4 fl (6.2-12.0); Monocyte# 0.48 X10^3/uL; Monocyte% 7.7 % (0-10); NRBC Flagged by Analyzer 0 % (0-5); Neutrophil # 3.71 X10^3/uL (2.7-7.7); Neutrophil % 59.1 % (47-70); Platelet Count 301 K/mm3 (150-450); RBC Distribution Width CV 13.7 % (11.6-14.6); RBC Distribution Width SD 38.2 fl (35.1-43.9); Red Blood Count 5.07 M/mm3 (4.2-5.4); White Blood Count 6.3 K/mm3 (4.4-11.0)
== END | disposition home or self-care (01) ==
LOC: POLAB3 15:40
PROVIDERS: PCP Family Medicine Geriatric Medicine; Visit Provider Family Medicine Geriatric Medicine
DX: R42 Dizziness and giddiness (principal)
CPT/HCPCS: 36415; 80048; 85025

== ENCOUNTER → 2021-08-31 | Outpatient (CLI) | payer MEDICARE, OTHER, SELFPAY ==
--- NOTE | 2021-08-31 13:58 | BI_ITS ---
MAMMOGRAPHY - BILATERAL SCREENING REASON FOR EXAM: Female, 71 years old. Routine annual screening examination. PERTINENT HISTORY: Mother with breast cancer. Aunts with breast cancer TECHNIQUE: Digital bilateral breast denice (3D mammographic acquisition) in the CC and MLO projections. 2-D mediolateral oblique (MLO) and craniocaudad (CC) views of both breasts were obtained. CAD: Full Field Digital Mammography with Computer Added Detection was performed. COMPARISON: 08/14/2020, 08/16/2018, 07/27/2016, 05/22/2015. FINDINGS: Breast Composition: The breasts are heterogeneously dense, which may obscure small masses. There are no dominant masses or suspicious calcifications. Stable small benign-appearing bilateral axillary lymph nodes. No other significant abnormalities are identified. There has been no significant change since the prior study. BI/SCRN MAMM (CAD)W/DENICE BILAT IMPRESSION: Stable bilateral screening mammogram. Yearly follow-up mammogram recommended. (A) ASSESSMENT CATEGORY: BIRADS Category 2: Benign. A letter regarding these results will be sent to the patient by the facility within 30 days. Approximately 10% of breast cancers are not detected by mammography. A normal mammogram should not delay biopsy of a clinically suspicious abnormality. [id number] Electronically Signed: [place], at 15:18 EDT ,
== END | disposition home or self-care (01) ==
LOC: OPBI 13:56
PROVIDERS: PCP Family Medicine Geriatric Medicine; Visit Provider Family Medicine Geriatric Medicine
DX: Z12.31 Encounter for screening mammogram for malignant neoplasm of breast (principal)
CPT/HCPCS: 77063; 77067

== ENCOUNTER → 2021-10-21 | Outpatient (CLI) | payer MEDICARE, OTHER, SELFPAY ==
--- NOTE | 2021-10-21 13:17 | NEURO ---
NCS and/or EMG Patient Report Ordering Doctor: Alphonso May Chi DATE OF SERVICE: 10/21/21 Smiley presents for electrodiagnostic testing of the right upper limb. She reports numbness and pain in her right hand. She has a history of previous carpal tunnel release. Electrodiagnostic findings: Right median motor nerve demonstrates prolonged distal latency with normal amplitude and reduced conduction velocity. Normal right ulnar motor response. Normal median and ulnar F waves. Prolonged right median sensory latency at the wrist. On needle EMG, all muscles tested in the right upper limb showed no evidence of denervation with normal motor unit action potentials. Electrodiagnostic impression: This is an abnormal study in the right upper limb. 1. Electrodiagnostic findings consistent with right-sided median mononeuropathy. This is consistent with a mild right carpal tunnel syndrome.
== END | disposition home or self-care (01) ==
LOC: PSN 10:27
PROVIDERS: PCP Family Medicine Geriatric Medicine; Referring Provider Family Medicine Geriatric Medicine; Visit Provider Family Medicine Geriatric Medicine
DX: M79.601 Pain in right arm (principal)
CPT/HCPCS: 95886; 95910

== ENCOUNTER → 2021-10-23 | Outpatient (CLI) | payer MEDICARE, OTHER, SELFPAY ==
[2021-10-23 17:20] LABS: Thyroid Stim Hormone (TSH) 1.87 uIU/mL (0.358-3.74)
== END | disposition home or self-care (01) ==
LOC: LAB 16:04
PROVIDERS: PCP Family Medicine Geriatric Medicine; Visit Provider Internal Medicine Endocrinology, Diabetes & Metabolism
DX: E03.8 Other specified hypothyroidism (principal)
CPT/HCPCS: 36415; 84443

== ENCOUNTER → 2022-01-28 | Outpatient (CLI) | payer MEDICARE, OTHER, SELFPAY ==
[2022-01-28 17:15] LABS: Absolute Lymphocyte Count 2.02 X10^3/uL (0.83-4.51); Absolute Neutrophil Count 4.4 X10^3/uL (2.0-7.7); Basophil% 1.3 % (0-1); Eosinophil# 0.25 X10^3/uL; Eosinophils% 3.3 % (0-5); Hematocrit 39.7 % (37-47); Hemoglobin 12.9 g/dL (12.0-15.0); Lymphocyte # 2.02 X10^3/ul (0.83-4.51); Lymphocyte % 26.5 % (19-41); Mean Corp Hgb Conc 32.5 g/dL (32-36); Mean Corpuscular Hgb 25.2 pg (27.0-32.0); Mean Corpuscular Volume 77.7 fL (81-99); Mean Platelet Vol. 10.9 fl (6.2-12.0); Monocyte# 0.86 X10^3/uL; Monocyte% 11.3 % (0-10); NRBC Flagged by Analyzer 0 % (0-5); Neutrophil # 4.36 X10^3/uL (2.7-7.7); Neutrophil % 57.1 % (47-70); Platelet Count 333 K/mm3 (150-450); RBC Distribution Width CV 13.5 % (11.6-14.6); RBC Distribution Width SD 38.4 fl (35.1-43.9); Red Blood Count 5.11 M/mm3 (4.2-5.4); White Blood Count 7.6 K/mm3 (4.4-11.0)
[2022-01-28 17:27] LABS: Vitamin D,25 Hydroxy 38.9 ng/mL
[2022-01-28 17:44] LABS: ALB/GLOB Ratio 1.1 RATIO (0.9-2.4); AST(SGOT) 19 U/L (15-37); Alanine Aminotransfer ALT/SGPT 37 U/L (13-56); Albumin, Serum 3.6 g/dL (3.2-5.0); Alkaline Phosphatase 61 U/L (45-117); Anion Gap 9 (5-15); BUN 20 mg/dL (7-18); BUN/Creat Ratio 17.5 RATIO (10-20); Calcium,Total 8.8 mg/dL (8.5-10.1); Chloride 94 mmol/L (98-107); Creatinine, Serum 1.14 mg/dL (0.55-1.02); EST Glomerular Filtration Rate 50 mL/min (>60); Est Glom Filt Rate - Afr Amer 60 mL/min (>60); Globulin 3.3 g/dL (2.2-4.2); Glucose 74 mg/dL (74-106); Potassium 2.8 mmol/L (3.5-5.1); Protein, Total 6.9 g/dL (6.4-8.2); Sodium Level 137 mmol/L (136-145); Thyroid Stim Hormone (TSH) 1.98 uIU/mL (0.358-3.74)
== END | disposition home or self-care (01) ==
LOC: POLAB3 13:04
PROVIDERS: PCP Family Medicine Geriatric Medicine; Visit Provider Family Medicine Geriatric Medicine
DX: E55.9 Vitamin D deficiency, unspecified (principal); I10 Essential (primary) hypertension
CPT/HCPCS: 36415; 80053; 82306; 84443; 85025

== ENCOUNTER → 2022-02-24 | Outpatient (CLI) | payer MEDICARE, OTHER, SELFPAY ==
[2022-02-24 16:29] LABS: Anion Gap 3 (5-15); BUN 22 mg/dL (7-18); BUN/Creat Ratio 19.3 RATIO (10-20); Calcium,Total 9.4 mg/dL (8.5-10.1); Chloride 101 mmol/L (98-107); Creatinine, Serum 1.14 mg/dL (0.55-1.02); EST Glomerular Filtration Rate 50 mL/min (>60); Est Glom Filt Rate - Afr Amer 60 mL/min (>60); Glucose 102 mg/dL (74-106); Magnesium 2.1 mg/dL (1.6-2.6); Potassium 4.4 mmol/L (3.5-5.1); Sodium Level 136 mmol/L (136-145)
== END | disposition home or self-care (01) ==
LOC: LAB 15:10
PROVIDERS: PCP Family Medicine Geriatric Medicine; Visit Provider Nurse Practitioner Family
DX: Z79.899 Other long term (current) drug therapy (principal)
CPT/HCPCS: 36415; 80048; 83735

== ENCOUNTER → 2022-08-05 | Outpatient (CLI) | payer MEDICARE, OTHER, SELFPAY ==
[2022-08-05 17:00] LABS: Absolute Lymphocyte Count 2.07 X10^3/uL (0.83-4.51); Absolute Neutrophil Count 4.1 X10^3/uL (2.0-7.7); Basophil# 0.09 X10^3/uL; Basophil% 1.2 % (0-1); Eosinophil# 0.33 X10^3/uL; Eosinophils% 4.5 % (0-5); Hematocrit 39.5 % (37-47); Hemoglobin 12.1 g/dL (12.0-15.0); Lymphocyte # 2.07 X10^3/ul (0.83-4.51); Mean Corp Hgb Conc 30.6 g/dL (32-36); Mean Corpuscular Hgb 24.6 pg (27.0-32.0); Mean Corpuscular Volume 80.3 fL (81-99); Mean Platelet Vol. 11.3 fl (6.2-12.0); Monocyte# 0.78 X10^3/uL; Monocyte% 10.6 % (0-10); NRBC Flagged by Analyzer 0 % (0-5); Neutrophil # 4.08 X10^3/uL (2.7-7.7); Neutrophil % 55.2 % (47-70); Platelet Count 300 K/mm3 (150-450); RBC Distribution Width CV 13.9 % (11.6-14.6); RBC Distribution Width SD 40.3 fl (35.1-43.9); Red Blood Count 4.92 M/mm3 (4.2-5.4); White Blood Count 7.4 K/mm3 (4.4-11.0)
[2022-08-05 17:19] LABS: Vitamin D,25 Hydroxy 38.9 ng/mL
[2022-08-05 17:23] LABS: ALB/GLOB Ratio 1.3 RATIO (0.9-2.4); AST(SGOT) 16 U/L (15-37); Alanine Aminotransfer ALT/SGPT 32 U/L (13-56); Albumin, Serum 3.9 g/dL (3.2-5.0); Alkaline Phosphatase 70 U/L (45-117); Anion Gap 8 (5-15); BUN 23 mg/dL (7-18); Calcium,Total 9.5 mg/dL (8.5-10.1); Chloride 102 mmol/L (98-107); Creatinine, Serum 1.28 mg/dL (0.55-1.02); EST Glomerular Filtration Rate 43 mL/min (>60); Est Glom Filt Rate - Afr Amer 52 mL/min (>60); Globulin 3.1 g/dL (2.2-4.2); Glucose 82 mg/dL (74-106); Potassium 4.2 mmol/L (3.5-5.1); Sodium Level 139 mmol/L (136-145); Thyroid Stim Hormone (TSH) 1.32 uIU/mL (0.358-3.74)
== END | disposition home or self-care (01) ==
LOC: POLAB3 13:14
PROVIDERS: PCP Family Medicine Geriatric Medicine; Visit Provider Family Medicine Geriatric Medicine
DX: E55.9 Vitamin D deficiency, unspecified (principal); R53.83 Other fatigue
CPT/HCPCS: 36415; 80053; 82306; 84443; 85025

== ENCOUNTER → 2022-10-27 | Outpatient (CLI) | payer MEDICARE, OTHER, SELFPAY ==
[2022-10-27 16:50] LABS: Absolute Lymphocyte Count 1.69 X10^3/uL (0.83-4.51); Absolute Neutrophil Count 4.3 X10^3/uL (2.0-7.7); Basophil# 0.08 X10^3/uL; Basophil% 1.1 % (0-1); Eosinophil# 0.26 X10^3/uL; Eosinophils% 3.7 % (0-5); Hematocrit 38.3 % (37-47); Hemoglobin 12.1 g/dL (12.0-15.0); Lymphocyte # 1.69 X10^3/ul (0.83-4.51); Lymphocyte % 23.9 % (19-41); Mean Corp Hgb Conc 31.6 g/dL (32-36); Mean Corpuscular Hgb 24.8 pg (27.0-32.0); Mean Corpuscular Volume 78.5 fL (81-99); Mean Platelet Vol. 11.1 fl (6.2-12.0); Monocyte# 0.65 X10^3/uL; Monocyte% 9.2 % (0-10); NRBC Flagged by Analyzer 0 % (0-5); Neutrophil # 4.34 X10^3/uL (2.7-7.7); Neutrophil % 61.5 % (47-70); Platelet Count 302 K/mm3 (150-450); RBC Distribution Width CV 13.2 % (11.6-14.6); RBC Distribution Width SD 38.2 fl (35.1-43.9); Red Blood Count 4.88 M/mm3 (4.2-5.4); White Blood Count 7.1 K/mm3 (4.4-11.0)
[2022-10-27 17:05] LABS: Anion Gap 6 (5-15); BUN 24 mg/dL (7-18); BUN/Creat Ratio 20.7 RATIO (10-20); Calcium,Total 9.1 mg/dL (8.5-10.1); Chloride 105 mmol/L (98-107); Creatinine, Serum 1.16 mg/dL (0.55-1.02); EST Glomerular Filtration Rate 49 mL/min (>60); Est Glom Filt Rate - Afr Amer 59 mL/min (>60); Glucose 104 mg/dL (74-106); Sodium Level 138 mmol/L (136-145)
[2022-10-27 17:15] LABS: International Normalized Ratio 1.2; Prothrombin Time (Protime)PT. 15.3 SECONDS (11.7-14.9)
== END | disposition home or self-care (01) ==
LOC: POLAB3 14:31
PROVIDERS: PCP Family Medicine Geriatric Medicine; Visit Provider Family Medicine Geriatric Medicine
DX: Z01.818 Encounter for other preprocedural examination (principal)
CPT/HCPCS: 36415; 80048; 85025; 85610

== ENCOUNTER → 2023-02-08 | Outpatient (CLI) | payer MEDICARE, OTHER, SELFPAY ==
[2023-02-08 14:38] LABS: Absolute Lymphocyte Count 1.66 X10^3/uL (0.83-4.51); Basophil# 0.06 X10^3/uL; Basophil% 1.1 % (0-1); Eosinophil# 0.22 X10^3/uL; Hematocrit 38.5 % (37-47); Hemoglobin 11.8 g/dL (12.0-15.0); Lymphocyte # 1.66 X10^3/ul (0.83-4.51); Lymphocyte % 30.5 % (19-41); Mean Corp Hgb Conc 30.6 g/dL (32-36); Mean Corpuscular Hgb 23.8 pg (27.0-32.0); Mean Corpuscular Volume 77.8 fL (81-99); Mean Platelet Vol. 10.5 fl (6.2-12.0); Monocyte# 0.47 X10^3/uL; Monocyte% 8.6 % (0-10); NRBC Flagged by Analyzer 0 % (0-5); Neutrophil # 2.99 X10^3/uL (2.7-7.7); Neutrophil % 55.1 % (47-70); Platelet Count 260 K/mm3 (150-450); RBC Distribution Width SD 39.5 fl (35.1-43.9); Red Blood Count 4.95 M/mm3 (4.2-5.4); White Blood Count 5.4 K/mm3 (4.4-11.0)
[2023-02-08 16:14] LABS: ALB/GLOB Ratio 1.1 RATIO (0.9-2.4); AST(SGOT) 17 U/L (15-37); Alanine Aminotransfer ALT/SGPT 35 U/L (13-56); Albumin, Serum 3.7 g/dL (3.2-5.0); Alkaline Phosphatase 66 U/L (45-117); Anion Gap 7 (5-15); BUN 19 mg/dL (7-18); BUN/Creat Ratio 18.6 RATIO (10-20); Calcium,Total 8.8 mg/dL (8.5-10.1); Chloride 106 mmol/L (98-107); Creatinine, Serum 1.02 mg/dL (0.55-1.02); EST Glomerular Filtration Rate 56 mL/min (>60); Est Glom Filt Rate - Afr Amer 68 mL/min (>60); Globulin 3.3 g/dL (2.2-4.2); Glucose 85 mg/dL (74-106); Sodium Level 140 mmol/L (136-145); Thyroid Stim Hormone (TSH) 1.53 uIU/mL (0.358-3.74)
[2023-02-08 16:28] LABS: Vitamin D,25 Hydroxy 36.2 ng/mL
== END | disposition home or self-care (01) ==
LOC: POLAB3 14:18
PROVIDERS: PCP Family Medicine Geriatric Medicine; Visit Provider Family Medicine Geriatric Medicine
DX: I10 Essential (primary) hypertension (principal); E55.9 Vitamin D deficiency, unspecified
CPT/HCPCS: 36415; 80053; 82306; 84443; 85025

== ENCOUNTER → 2023-03-30 | Outpatient (CLI) | payer MEDICARE, OTHER, SELFPAY ==
--- OUTSIDE RECORDS SUMMARY | 2023-03-30 13:39 | XMS RPT_ITS | CCD ---
Author Name Unknown Address [address] [place] [address] Organization [facility] Care Team Providers Care Rug Inspector Name Role Phone MD Lexx, Kahlil Larry Unavailable [facility] Nurse Unavailable Unavailable Raysa Oshea Unavailable Unavailable Demetri RODRIGUEZ, Elroy V Unavailable [phone] Raysa Oshea Unavailable Unavailable SELF, SELF Referring Unavailable AMAIRANI MALIK Primary Care Unavailable KING RODRIGUEZ, DR BALES Primary Care Physician KING RODRIGUEZ, DR BALES Primary Care Unavailable LARRY RODRIGUEZ, DR RAMON Attending Unavailabl e Allergies Allergy Classification Reported Allergen(s) Allergy Type Date of Onset Reaction(s) Facility (5 sources) amLODIPine drug allergy 05-01-19 14 edema [facility] Work Phone: (5 sources) hydroCHLOROthiazide drug allergy 07-03-19 16 doesnt feel good [facility] Work Phone: (8 sources) NKDA drug allergy 01-04-20 13 [facility] Work Phone: (1 source) Tree; Translations: [TREES] allergy to substance 10-27-19 12 sneezing [facility] Work Phone: (1 source) RAGWEED; Translations: [RAGWEED] allergy to substance 10-27-19 12 sneezing [facility] Work Phone: (1 source) GRASS; Translations: [GRASS] allergy to substance 10-27-19 12 sneezing, runny nose [facility] Work Phone: Medications Current Medications Medication Drug Class(es) Dates Sig (Normalized) Sig (Original) amLODIPine 5 mg oral tablet (20 sources) Dihydropyridine Calcium Channel Kianna Start: 09-08-2022 take 1 tablet by mouth once daily amLODIPine 5 mg oral tablet TAKE 1 TABLET BY MOUTH EVERY DAY Start Date: 09/08/22 Status: Ordered Completed/Discontinued Medications Medication Drug Class(es) Dates Sig (Normalized) Sig (Original) acetaminophen 325 mg / HYDROcodone bitartrate 5 mg oral tablet (11 sources) Opioid Agonist Start: 12-21-2017 End: 12-28-2017 take 1 tablet by mouth once as needed for pain, then take 4-6 tablets by mouth as needed for pain HYDROCODONE-ACETAM INOPHEN 5-325 MG TABS Take 1 tablet by mouth every 4-6 as needed for pain HYDROCODONE-ACETAM INOPHEN [id number] Elroy Mosquera MD Problems Active Problems Problem Classification Problem Date Documented Date Episodic/Chronic Cardiac dysrhythmias (10 sources) Permanent atrial fibrillation ; Translations: [Atrial fibrillation] Onset: 12-21-2012 05-27-2015 Chronic Diabetes mellitus without complication (5 sources) Diabetes mellitus; Translations: [Type 2 diabetes mellitus without complications] Onset: 12-26-2012 12-26-2012 Chronic Disorders of lipid metabolism (5 sources) Hyperlipidemia; Translations: [Hyperlipidemia, unspecified] Onset: 12-26-2012 12-26-2012 Chronic Essential hypertension (5 sources) Hypertensive disorder; Translations: [Essential (primary) hypertension] Onset: 12-26-2012 12-26-2012 Chronic Other connective tissue disease (1 source) Arthrodesis status; Translations: [Arthrodesis status] Onset: 11-23-2017 11-23-2017 Episodic Other nutritional; endocrine; and metabolic disorders (16 sources) Body mass index (BMI) 34.0-34.9, adult; Translations: [Body mass index (BMI) 33.0-33.9, adult] Onset: 01-03-2013 Resolved: 04-22-2015 07-30-2014 Chronic Other nutritional; endocrine; and metabolic disorders (4 sources) Body mass index (BMI) 33.0-33.9, adult; Translations: [Body mass index (BMI) 33.0-33.9, adult] Onset: 01-03-2013 Resolved: 04-22-2015 04-22-2015 Chronic Spondylosis; intervertebral disc disorders; other back problems (2 sources) Low back pain; Translations: [Spinal stenosis of lumbar region] Onset: 05-13-2016 11-23-2017 Episodic Thyroid disorders (5 sources) 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; Translations: [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, unspecified] Onset: 12-26-2012 12-26-2012 Chronic Unclassified (7 sources) Edema; Translations: [History of operative procedure on lumbar spinal structure] Onset: 04-04-2013 04-04-2013 Episodic Unclassified (5 sources) Body mass index (BMI) 30-39, adult; Translations: [Body mass index (BMI) 30-39, adult] Onset: 10-17-2014 10-17-2014 Unclassified (6 sources) Long-term drug therapy; Translations: [Long-term (current) use of other medications] Onset: 12-28-2013 Resolved: 10-18-2014 12-28-2013 Unclassified (1 source) Patient encounter status; Translations: [Encounter for screening for osteoporosis] Onset: 11-23-2017 11-23-2017 Unclassified (1 source) Other specified postprocedural states; Translations: [Other specified postprocedural states] Onset: 07-16-2016 07-16-2016 Past or Other Problems Problem Classification Problem Date Documented Da te Episodic/Chronic Deficiency and other anemia (5 sources) Anemia; Translations: [Anemia, unspecified] Onset: 10-09-2013 10-09-2013 Episodic Malaise and fatigue (5 sources) Fatigue; Translations: [Other fatigue] Onset: 10-16-2014 10-16-2014 Episodic Nonspecific chest pain (5 sources) Chest pain, unspecified; Translations: [Chest pain, unspecified] Onset: 10-17-2014 10-17-2014 Episodic Other aftercare (13 sources) Long-term (current) use of other medications; Translations: [Other terminal 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) drug therapy] Onset: 12-28-2013 Resolved: 10-18-2014 12-28-2013 Episodic Other aftercare (1 source) Other terminal 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) drug therapy; Translations: [Other [facility] (current) drug therapy] Onset: 10-18-2014 10-18-2014 Episodic Other lower respiratory disease (5 sources) Dyspnea; Translations: [Shortness of breath] Onset: 10-16-2014 10-16-2014 Episodic Unclassified (1 source) Problem Results Test Name Value Interpretation Reference Range Facil ity Vital Signs Date Time Vital Sign Value Performing Clinician Facility 09-13-2022 10:55-0400 Diastolic Blood Pressure Non-Invasive [address] TRISTEN JUAREZ MD [facility] 09-13-2022 10:55-0400 Heart rate 62 /min DR TRISTEN JUAREZ MD [facility] 09-13-2022 10:55-0400 Respiratory rate 15 /min DR TRISTEN JUAREZ MD [facility] 09-13-2022 10:55-0400 Systolic Blood Pressure Non-Invasive [address] TRISTEN JUAREZ MD [facility] 09-13-2022 10:36-0400 Diastolic Blood Pressure Non-Invasive [address] TRISTEN JUAREZ MD [facility] 09-13-2022 10:36-0400 Heart rate 66 /min DR TRISTEN JUAREZ MD [facility] 09-13-2022 10:36-0400 Respiratory rate 15 /min DR TRISTEN JUAREZ MD [facility] 09-13-2022 10:36-0400 Systolic Blood Pressure Non-Invasive [address] TRISTEN JUAREZ MD [facility] 09-13-2022 10:31-0400 Diastolic Blood Pressure Non-Invasive [address] TRISTEN JUAREZ MD [facility] 09-13-2022 10:31-0400 Heart rate 63 /min DR TRISTEN JUAREZ MD [facility] 09-13-2022 10:31-0400 Respiratory rate 15 /min DR TRISTEN JUAREZ MD [facility] 09-13-2022 10:31-0400 Systolic Blood Pressure Non-Invasive [address] TRISTEN JUAREZ MD [facility] 09-13-2022 10:18-0400 Body temperature 96.8 [degF] DR TRISTEN JUAREZ MD [facility] 09-13-2022 10:15-0400 Heart rate 68 /min DR TRISTEN JUAREZ MD [facility] 09-13-2022 10:15-0400 Respiratory Rate - Anes 15 br/min DR TRISTEN JUAREZ MD [facility] 09-13-2022 10:10-0400 Heart rate 63 /min DR TRISTEN JUAREZ MD [facility] 09-13-2022 10:10-0400 Respiratory Rate - Anes 15 br/min DR TRISTEN JUAREZ MD [facility] 09-13-2022 10:05-0400 Heart rate 69 /min DR TRISTEN JUAREZ MD [facility] 09-13-2022 10:05-0400 Respiratory Rate - Anes 15 br/min DR TRISTEN JUAREZ MD [facility] 09-13-2022 09:22-0400 Body height [address] TRISTEN JUAREZ MD [facility] 09-13-2022 09:22-0400 Body weight 77.[address] TRISTEN JUAREZ MD [facility] 09-13-2022 09:22-0400 Body weight 28.32 kg/m2 DR TRISTEN JUAREZ MD [facility] 09-13-2022 09:12-0400 Body height [address] TRISTEN JUAREZ MD [facility] 09-13-2022 09:12-0400 Body temperature 96.62 [degF] DR TRISTEN JUAREZ MD [facility] 09-13-2022 09:12-0400 Body weight 77.[address] TRISTEN JUAREZ MD [facility] 12-09-2016 14:48-0400 BMI (Body Mass Index) 34.76 kg/m2 [facility] Work Phone: 12-09-2016 14:48-0400 BP Diastolic 70 mm[Hg] [facility] Work Phone: 12-09-2016 14:48-0400 BP Systolic 120 mm[Hg] [facility] Work Phone: 12-09-2016 14:48-0400 Height 163.83 cm [facility] Work Phone: 12-09-2016 14:48-0400 Pulse (Heart Rate) 60 /min [facility] Work Phone: 12-09-2016 14:48-0400 Respiratory Rate 20 /min [facility] Work Phone: 12-09-2016 14:48-0400 Weight 93.31 kg [facility] Work Phone: 12-11-2015 13:08-0400 BSA (Body Surface Area) 1.98 m2 [facility] Work Phone: 10-17-2014 13:49-0400 Heart rate 69 /min Harumi DeFinis [facility] Work Phone: 10-17-2014 12:37-0400 Pulse Oximetry 98 % [facility] Work Phone: 04-04-2013 11:00-0500 Heart rate 441 ms Harumi DeFinis [facility] Work Phone: NEGATED: Highlighted [id number] 15:40-0400 BMI (Body Mass Index) 28.42 kg/m2 Jean Carlos King [employer] [facility] Work Phone: NEGATED: Highlighted [id number] 15:40-0400 BP Diastolic 75 mm[Hg] Jean Carlos King [employer] [facility] Work Phone: NEGATED: Highlighted [id number] 15:40-0400 BP Systolic 136 mm[Hg] Jean Carlos King [facility] Work Phone: NEGATED: Highlighted [id number] 15:40-0400 Height 162.[address] [facility] Work Phone: NEGATED: Highlighted [id number] 15:40-0400 Height 163 [address] [facility] Work Phone: NEGATED: Highlighted [id number] 15:40-0400 Pulse (Heart Rate) 63 /min Jean Carlos King [employer] [facility] Work Phone: NEGATED: Highlighted [id number] 15:40-0400 Weight 74.84 kg Jean Carlos King [employer] [facility] Work Phone: NEGATED: Highlighted [id number] 15:40-0400 Weight [address] [facility] Work Phone: Encounters Encounter Date Encounter Type Care Provider Facility Start: 09-13-2022 End: 09-13-[address] AMAIRANI MALIK MD Facility:[facility] Start: 09-13-2022 End: 09-13-[address] TRISTEN JUAREZ MD [facility] Start: 12-05-2019 Patient encounter procedure SELF SELF Facility:[facility] Start: 12-21-2017 End: 12-21-2017 Patient encounter procedure Elroy Mosquera MD Work Phone: [facility] Work Phone: Start: 12-21-2017 End: 12-21-2017 Pt evaluation Elroy Mosquera MD Work Phone: [facility] Work Phone: Procedures Date Procedure Procedure Detail Performing Clinician Start: 09-12-[address] TRISTEN JUAREZ MD Start: 12-21-2017 End: 12-21-2017 Blood pressure within normal parameters - no follow-up required Elroy Mosquera MD Work Phone: Start: 12-21-2017 End: 12-21-2017 BMI documented as above normal parameters - follow-up documented Elroy Mosquera MD Work Phone: Start: 12-21-2017 End: 12-21-2017 Current medications documented Elroy Mosquera MD Work Phone: Start: 12-21-2017 End: 12-21-2017 Pain assessment documented as positive - follow-up documented Elroy Mosquera MD Work Phone: Start: 12-21-2017 End: 12-21-2017 Tobacco non-user Elroy Mosquera MD Work Phone: Start: 12-09-2016 End: 12-12-2016 *Hepatic Function Panel Sammy Acuña Start: 12-09-2016 End: 12-09-2016 Follow Up Appt 6 months Sammy Acuña Start: 12-09-2016 End: 12-12-2016 Lipid 1996 panel - Serum or Plasma Kahlil Hallman MD Start: 12-09-2016 End: 12-09-2016 MMM Kahlil Hallman MD Start: 12-09-2016 End: 12-12-2016 *Hepatic Function Panel Sammy Acuña Start: 12-09-2016 End: 12-09-2016 Follow Up Appt 6 months Sammy Acuña Start: 12-09-2016 End: 12-12-2016 Lipid panel [AGGREGATE] Sammy Acuña Start: 12-09-2016 End: 12-09-2016 GEOFF Hallman MD Start: 06-08-2016 End: 06-08-2016 PARVIZ Jay PA-C Work Phone: Start: 06-08-2016 End: 06-08-2016 Follow Up Appt 6 months Radha dunbar PA-C Work Phone: Start: 06-08-2016 End: 06-08-2016 PARVIZ Jay PA-C Work Phone: Start: 06-08-2016 End: 06-08-2016 Follow Up Appt 6 months Radha dunbar PA-C Work Phone: Start: 12-11-2015 End: 12-11-2015 Follow Up Appt 6 months Sammy Acuña Start: 12-11-2015 End: 12-11-2015 GEOFF Hallman MD Start: 12-11-2015 End: 12-11-2015 Dietary management education, guidance, and counseling Raysa Oshea Start: 12-11-2015 End: 12-11-2015 Follow Up Appt 6 months Sammy Acuña Start: 12-11-2015 End: 12-11-2015 GEOFF Hallman MD Start: 10-21-2015 End: 12-16-2016 *Hepatic Function Panel Sammy Acuña Start: 10-21-2015 End: 12-16-2016 Lipid 1996 panel - Serum or Plasma Kahlil Hallman MD Start: 07-01-2015 End: 07-02-2015 *BMP Radha Jay PA-C Work Phone: Start: 07-01-2015 End: 07-02-2015 *BMP Radha Jay PA-C Work Phone: Start: 06-25-2015 End: 06-25-2015 Follow Up BP Check Radha Jay PA-C Work Phone: Start: 06-25-2015 End: 06-25-2015 Follow Up BP Check Radha Jay PA-C Work Phone: Start: 05-27-2015 End: 05-27-2015 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 Radha Jay PA-C Work Phone: Start: 05-27-2015 End: 05-27-2015 Follow Up Appt 6 months Radha dunbar PA-C Work Phone: Start: 05-27-2015 End: 05-27-2015 Follow Up BP Check Radha Jay PA-C Work Phone: Start: 05-27-2015 End: 05-27-2015 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 Radha Jay PA-C Work Phone: Start: 05-27-2015 End: 05-27-2015 Follow Up Appt 6 months Radha dunbar PA-C Work Phone: Start: 05-27-2015 End: 05-27-2015 Follow Up BP Check Radha Jay PA-C Work Phone: Start: 04-21-2015 End: 04-21-2015 *Hepatic Function Panel Sammy Acuña Start: 04-21-2015 End: 04-21-2015 Lipid 1996 panel - Serum or Plasma Kahlil Hallman MD Start: 04-21-2015 End: 04-21-2015 *Hepatic Function Panel Sammy Acuña Start: 04-21-2015 End: 04-21-2015 Lipid panel [AGGREGATE] Sammy Acuña Start: 01-28-2015 End: 01-31-2015 Ambulatory BP Monitor 24 HR Kahlil Robertson i, MD Start: 01-28-2015 End: 05-15-2015 Follow Up Appt 4 months Sammy Acuña Start: 01-28-2015 End: 05-15-2015 MMM Kahlil Hallman MD Start: 01-28-2015 End: 01-31-2015 Ambulatory BP Monitor 24 HR Kahlil Robertson i, MD Start: 01-28-2015 End: 05-15-2015 Follow Up Appt 4 months Sammy Acuña Start: 01-28-2015 End: 05-15-2015 MMM Kahlil Hallman MD Start: 10-17-2014 End: 10-17-2014 *BMP Kahlil Hallman MD Start: 10-17-2014 End: 10-17-2014 CBC W Auto Differential panel - Blood Kahlil Hallman MD Start: 10-17-2014 End: 10-23-2014 Chest x-ray Kahlil Hallman MD Start: 10-17-2014 End: 10-18-2014 Documentation of current medications Kahlil Hallman MD Start: 10-17-2014 End: 10-17-2014 Ecg routine ecg w/least 12 lds w/i&r Kahlil Hallman MD Start: 10-17-2014 End: 10-17-2014 Follow Up Appt 3 months Sammy Acuña Start: 10-17-2014 End: 10-17-2014 INR in Platelet poor plasma by Coagulation assay Kahlil Hallman MD Start: 10-17-2014 End: 10-23-2014 Left Heart Cath Kahlil Hallman MD Start: 10-17-2014 End: 10-17-2014 MMSammy Hallman MD Start: 10-17-2014 End: 10-17-2014 *BMP Kahlil Hallman MD Start: 10-17-2014 End: 10-17-2014 CBC W Auto Differential panel - Blood Kahlil Hallman MD Start: 10-17-2014 End: 10-23-2014 Chest x-ray Kahlil Hallman MD Start: 10-17-2014 End: 10-17-2014 Coagulation factor induced.INR assay in platelet poor plasma Kahlil Hallman MD Start: 10-17-2014 End: 10-18-2014 Documentation of current medications Kahlil Hallman MD Start: 10-17-2014 End: 10-17-2014 Electrocardiogram, complete Kahlil Robertson i, MD Start: 10-17-2014 End: 10-17-2014 Follow Up Appt 3 months Sammy Acuña Start: 10-17-2014 End: 10-23-2014 Left Heart Cath Kahlil Hallman MD Start: 10-17-2014 End: 10-17-2014 MMSammy Hallman MD Start: 09-20-2014 End: 10-17-2014 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 Radha Jay PA-C Work Phone: Start: 09-20-2014 End: 09-21-2014 Documentation of current medications Radha Jay PA-C Work Phone: Start: 09-20-2014 End: 10-17-2014 Ecg routine ecg w/least 12 lds w/i&r Radha Jay PA-C Work Phone: Start: 09-20-2014 End: 10-17-2014 Follow Up Appt 3 months Radha dunbar PA-C Work Phone: Start: 09-20-2014 End: 10-17-2014 PARVIZ Jay PA-C Work Phone: Start: 09-20-2014 End: 09-21-2014 Documentation of current medications Radha Jay PA-C Work Phone: Start: 09-20-2014 End: 10-17-2014 Electrocardiogram, complete Radha Vazquez PA-C Work Phone: Start: 09-20-2014 End: 10-17-2014 Follow Up Appt 3 months Radha dunbar PA-C Work Phone: Start: 07-30-2014 End: 07-30-2014 PARVIZ Jay PA-C Work Phone: Start: 07-30-2014 End: 07-31-2014 Documentation of current medications Radha Jay PA-C Work Phone: Start: 07-30-2014 End: 07-30-2014 Follow Up Appt 6 months Radha dunbar PA-C Work Phone: Start: 07-30-2014 End: 07-30-2014 Follow Up Appt Other Radha arthur PA-C Work Phone: Start: 07-30-2014 End: 07-30-2014 Follow Up BP Check Radha Jay PA-C Work Phone: Start: 07-30-2014 End: 07-30-2014 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 Radha Jay PA-C Work Phone: Start: 07-30-2014 End: 07-31-2014 Documentation of current medications Radha Jay PA-C Work Phone: Start: 07-30-2014 End: 07-30-2014 Follow Up Appt 6 months Radha dunbar PA-C Work Phone: Start: 07-30-2014 End: 07-30-2014 Follow Up Appt Other Radha arthur PA-C Work Phone: Start: 07-30-2014 End: 07-30-2014 Follow Up BP Check Radha Jay PA-C Work Phone: Start: 01-29-2014 End: 01-29-2014 Follow Up Appt 6 months Sammy Acuña Start: 01-29-2014 End: 01-29-2014 GEOFF Hallman MD Start: 01-29-2014 End: 01-29-2014 Follow Up Appt 6 months Sammy Acuña Start: 01-29-2014 End: 01-29-2014 GEOFF Hallman MD Start: 01-08-2014 End: 01-09-2014 *HOLLIS Hallman MD Start: 01-08-2014 End: 01-09-2014 *HOLLIS Hallman MD Start: 12-31-2013 End: 12-31-2013 *HOLLIS Jay PA-C Work Phone: Start: 12-31-2013 End: 12-31-2013 *HOLLIS Jay PA-C Work Phone: Start: 10-09-2013 End: 10-11-2013 Hemoglobin.gastrointestinal [Presence] in Stool by Immunologic method Radha Jay PA-C Work Phone: Start: 10-09-2013 End: 10-11-2013 Hemoglobin by Imm presence in stool Radha Jay PA-C Work Phone: Start: 10-03-2013 End: 10-08-2013 CBC W Auto Differential panel - Blood Radha Jay PA-C Work Phone: Start: 10-03-2013 End: 10-09-2013 Chest x-ray Radha Jay PA-C Work Phone: Start: 10-03-2013 End: 10-03-2013 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 Radha Jay PA-C Work Phone: Start: 10-03-2013 End: 10-03-2013 Follow Up Appt 4 months Radha dunbar PA-C Work Phone: Start: 10-03-2013 End: 10-11-2013 Pulmonary Fuction Test - complete Radha Jay PA-C Work Phone: Start: 10-03-2013 End: 10-08-2013 CBC W Auto Differential panel - Blood Radha Jay PA-C Work Phone: Start: 10-03-2013 End: 10-09-2013 Chest x-ray Radha Jay PA-C Work Phone: Start: 10-03-2013 End: 10-03-2013 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 Radha Jay PA-C Work Phone: Start: 10-03-2013 End: 10-03-2013 Follow Up Appt 4 months Radha dunbar PA-C Work Phone: Start: 10-03-2013 End: 10-11-2013 Pulmonary Fuction Test - complete Radha Jay PA-C Work Phone: Start: 09-19-2013 End: 09-19-2013 Nurse, Teaching, Wound Check (no charge) Kahlil Hallman MD Start: 09-19-2013 End: 09-19-2013 Nurse, Teaching, Wound Check (no charge) Kahlil Hallman MD Start: 05-25-2013 End: 10-09-2013 *BMP Kahlil Hallman MD Start: 05-25-2013 End: 10-09-2013 *CBC with Differential Kahlil Hallman MD Start: 05-25-2013 End: 05-25-2013 Follow Up Appt 4 months Sammy Acuña Start: 05-25-2013 End: 05-25-2013 MMM Kahlil Hallman MD Start: 05-25-2013 End: 10-09-2013 *HOLLIS Hallman MD Start: 05-25-2013 End: 10-09-2013 *CBC with Differential Kahlil Hallman MD Start: 05-25-2013 End: 05-25-2013 Follow Up Appt 4 months Sammy Acuña Start: 05-25-2013 End: 05-25-2013 MMM Kahlil Hallman MD Start: 05-01-2013 End: 10-09-2013 Follow Up Appt Other Radha arthur PA-C Work Phone: Start: 05-01-2013 End: 10-09-2013 Follow Up Appt Other Radha arthur PA-C Work Phone: Start: 04-18-2013 End: 05-02-2013 *HOLLIS Jay PA-C Work Phone: Start: 04-18-2013 End: 05-02-2013 *BMP Radha Jay PA-C Work Phone: Start: 04-04-2013 End: 04-04-2013 Follow Up Appt Other Radha arthur PA-C Work Phone: Start: 04-04-2013 End: 04-04-2013 Follow Up Appt Other Radha arthur PA-C Work Phone: Start: 02-15-2013 End: 04-04-2013 48 hour holter monitor Radha kemp PA-C Work Phone: Start: 02-15-2013 End: 02-15-2013 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 Radha Jay PA-C Work Phone: Start: 02-15-2013 End: 02-15-2013 Follow Up Appt 3 months Radha dunbar PA-C Work Phone: Start: 02-15-2013 End: 04-04-2013 48 hour holter monitor Radha kemp PA-C Work Phone: Start: 02-15-2013 End: 02-15-2013 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 Radha Jay PA-C Work Phone: Start: 02-15-2013 End: 02-15-2013 Follow Up Appt 3 months Radha dunbar PA-C Work Phone: Start: 01-03-2013 End: 01-03-2013 Ecg routine ecg w/least 12 lds w/i&r Kahlil Hallman MD Start: 01-03-2013 End: 01-03-2013 Follow Up Appt 6 weeks Kahlil Hallman MD Start: 01-03-2013 End: 01-03-2013 MMM Kahlil Hallman MD Start: 01-03-2013 End: 02-06-2013 Nuclear stress test -adenosine Kahlil Hallman MD Start: 01-03-2013 End: 01-03-2013 Electrocardiogram, complete Kahlil Robertson i, MD Start: 01-03-2013 End: 01-03-2013 Follow Up Appt 6 weeks Kahlil Hallman MD Start: 01-03-2013 End: 01-03-2013 MMM Kahlil Hallman MD Start: 01-03-2013 End: 02-06-2013 Nuclear stress test -adenosine Kahlil Hallman MD Back fusion DR TRISTEN CHAPMAN MD Plan of Treatment Date Care Activity Detail Author Start: 12-21-2017 End: 12-21-2017 Appointment Appointment [facility] Work Phone: Start: 12-21-2017 End: 12-21-2017 Njx dx/ther sbst intrlmnr lmbr/sac w/img gdn Epidural injection(s) - Lumbar [facility] Work Phone: Start: 12-21-2017 End: 12-21-2017 Pain Management consultation Pain Management consultation [facility] Work Phone: Start: 06-13-2017 End: 12-16-2016 *Hepatic Function Panel *Hepatic Function Panel [facility] Work Phone: Start: 06-13-2017 End: 12-16-2016 Lipid panel [AGGREGATE] *Lipid Profile CC PCP [facility] Work Phone: Start: 05-17-2017 End: 05-17-2017 Appointment Appointment [facility] Work Phone: Start: 12-09-2016 End: 12-12-2016 *Hepatic Function Panel *Hepatic Function Panel [facility] Work Phone: Start: 12-09-2016 End: 12-09-2016 Follow Up Appt 6 months Follow Up Appt 6 months [facility] Work Phone: Start: 12-09-2016 End: 12-12-2016 Lipid panel [AGGREGATE] *Lipid Profile CC PCP [facility] Work Phone: Start: 12-09-2016 End: 12-09-2016 MMM MMM [facility] Work Phone: Start: 12-09-2016 End: 12-12-2016 *Hepatic Function Panel *Hepatic Function Panel [facility] Work Phone: Start: 12-09-2016 End: 12-09-2016 Follow Up Appt 6 months Follow Up Appt 6 months [facility] Work Phone: Start: 12-09-2016 End: 12-12-2016 Lipid panel [AGGREGATE] *Lipid Profile CC PCP [facility] Work Phone: Start: 12-09-2016 End: 12-09-2016 MMM MMM [facility] Work Phone: Start: 06-08-2016 End: 06-08-2016 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 [facility] Work Phone: Start: 06-08-2016 End: 06-08-2016 Follow Up Appt 6 months Follow Up Appt 6 months [facility] Work Phone: Start: 06-08-2016 End: 06-08-2016 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 [facility] Work Phone: Start: 06-08-2016 End: 06-08-2016 Follow Up Appt 6 months Follow Up Appt 6 months [facility] Work Phone: Start: 12-11-2015 End: 12-11-2015 Follow Up Appt 6 months Follow Up Appt 6 months [facility] Work Phone: Start: 12-11-2015 End: 12-11-2015 MMM MMM [facility] Work Phone: Start: 12-11-2015 End: 12-11-2015 Follow Up Appt 6 months Follow Up Appt 6 months [facility] Work Phone: Start: 12-11-2015 End: 12-11-2015 MMM MMM [facility] Work Phone: Start: 10-21-2015 End: 12-16-2016 *Hepatic Function Panel *Hepatic Function Panel [facility] Work Phone: Start: 10-21-2015 End: 12-16-2016 Lipid panel [AGGREGATE] *Lipid Profile CC PCP [facility] Work Phone: Start: 10-21-2015 End: 04-22-2015 *Hepatic Function Panel *Hepatic Function Panel [facility] Work Phone: Start: 10-21-2015 End: 04-22-2015 Lipid panel [AGGREGATE] *Lipid Profile CC PCP [facility] Work Phone: Start: 07-01-2015 End: 07-01-2015 *BMP *BMP [facility] Work Phone: Start: 07-01-2015 End: 07-01-2015 *BMP *BMP [facility] Work Phone: Start: 06-25-2015 End: 06-25-2015 Follow Up BP Check Follow Up BP Check [facility] Work Phone: Start: 06-25-2015 End: 06-25-2015 Follow Up BP Check Follow Up BP Check [facility] Work Phone: Start: 05-27-2015 End: 05-27-2015 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 [facility] Work Phone: Start: 05-27-2015 End: 05-27-2015 Follow Up Appt 6 months Follow Up Appt 6 months [facility] Work Phone: Start: 05-27-2015 End: 05-27-2015 Follow Up BP Check Follow Up BP Check [facility] Work Phone: Start: 05-27-2015 End: 05-27-2015 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 [facility] Work Phone: Start: 05-27-2015 End: 05-27-2015 Follow Up Appt 6 months Follow Up Appt 6 months [facility] Work Phone: Start: 05-27-2015 End: 05-27-2015 Follow Up BP Check Follow Up BP Check [facility] Work Phone: Start: 04-21-2015 End: 04-21-2015 *Hepatic Function Panel *Hepatic Function Panel [facility] Work Phone: Start: 04-21-2015 End: 04-21-2015 Lipid panel [AGGREGATE] *Lipid Profile CC PCP [facility] Work Phone: Start: 04-21-2015 End: 04-21-2015 *Hepatic Function Panel *Hepatic Function Panel [facility] Work Phone: Start: 04-21-2015 End: 04-21-2015 Lipid panel [AGGREGATE] *Lipid Profile CC PCP [facility] Work Phone: Start: 01-28-2015 End: 01-29-2015 Ambulatory BP Monitor 24 HR Ambulatory BP Monitor 24 HR [facility] Work Phone: Start: 01-28-2015 End: 05-15-2015 Follow Up Appt 4 months Follow Up Appt 4 months [facility] Work Phone: Start: 01-28-2015 End: 05-15-2015 MMM MMM [facility] Work Phone: Start: 01-28-2015 End: 01-29-2015 Ambulatory BP Monitor 24 HR Ambulatory BP Monitor 24 HR [facility] Work Phone: Start: 01-28-2015 End: 05-15-2015 Follow Up Appt 4 months Follow Up Appt 4 months [facility] Work Phone: Start: 01-28-2015 End: 05-15-2015 MMM MMM [facility] Work Phone: Start: 10-17-2014 End: 10-17-2014 *BMP *BMP [facility] Work Phone: Start: 10-17-2014 End: 10-17-2014 CBC W Auto Differential panel - Blood *CBC without Diff [facility] Work Phone: Start: 10-17-2014 End: 10-23-2014 Chest x-ray X-Ray, Chest, PA & Lateral [facility] Work Phone: Start: 10-17-2014 End: 10-17-2014 Ecg routine ecg w/least 12 lds w/i&r EKG (In office) [facility] Work Phone: Start: 10-17-2014 End: 10-17-2014 Follow Up Appt 3 months Follow Up Appt 3 months [facility] Work Phone: Start: 10-17-2014 End: 10-17-2014 INR Coag RelTime (PPP) *PT/INR [facility] Work Phone: Start: 10-17-2014 End: 10-17-2014 Left Heart Cath Left Heart Cath [facility] Work Phone: Start: 10-17-2014 End: 10-17-2014 MMM MMM [facility] Work Phone: Start: 10-17-2014 End: 10-17-2014 *BMP *BMP [facility] Work Phone: Start: 10-17-2014 End: 10-17-2014 CBC W Auto Differential panel - Blood *CBC without Diff [facility] Work Phone: Start: 10-17-2014 End: 10-23-2014 Chest x-ray X-Ray, Chest, PA & Lateral [facility] Work Phone: Start: 10-17-2014 End: 10-17-2014 Coagulation factor induced.INR assay in platelet poor plasma *PT/INR [facility] Work Phone: Start: 10-17-2014 End: 10-17-2014 Electrocardiogram, complete EKG (In office) [facility] Work Phone: Start: 10-17-2014 End: 10-17-2014 Follow Up Appt 3 months Follow Up Appt 3 months [facility] Work Phone: Start: 10-17-2014 End: 10-17-2014 Left Heart Cath Left Heart Cath [facility] Work Phone: Start: 10-17-2014 End: 10-17-2014 MMM MMM [facility] Work Phone: Start: 09-20-2014 End: 10-17-2014 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 [facility] Work Phone: Start: 09-20-2014 End: 10-17-2014 Ecg routine ecg w/least 12 lds w/i&r EKG (In office) [facility] Work Phone: Start: 09-20-2014 End: 10-17-2014 Follow Up Appt 3 months Follow Up Appt 3 months [facility] Work Phone: Start: 09-20-2014 End: 10-17-2014 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 [facility] Work Phone: Start: 09-20-2014 End: 10-17-2014 Electrocardiogram, complete EKG (In office) [facility] Work Phone: Start: 09-20-2014 End: 10-17-2014 Follow Up Appt 3 months Follow Up Appt 3 months [facility] Work Phone: Start: 07-30-2014 End: 07-30-2014 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 [facility] Work Phone: Start: 07-30-2014 End: 07-30-2014 Follow Up Appt 6 months Follow Up Appt 6 months [facility] Work Phone: Start: 07-30-2014 End: 07-30-2014 Follow Up Appt Other Follow Up Appt Other [facility] Work Phone: Start: 07-30-2014 End: 07-30-2014 Follow Up BP Check Follow Up BP Check [facility] Work Phone: Start: 07-30-2014 End: 07-30-2014 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 [facility] Work Phone: Start: 07-30-2014 End: 07-30-2014 Follow Up Appt 6 months Follow Up Appt 6 months [facility] Work Phone: Start: 07-30-2014 End: 07-30-2014 Follow Up Appt Other Follow Up Appt Other [facility] Work Phone: Start: 07-30-2014 End: 07-30-2014 Follow Up BP Check Follow Up BP Check [facility] Work Phone: Start: 01-29-2014 End: 01-29-2014 Follow Up Appt 6 months Follow Up Appt 6 months [facility] Work Phone: Start: 01-29-2014 End: 01-29-2014 MMM MMM [facility] Work Phone: Start: 01-29-2014 End: 01-29-2014 Follow Up Appt 6 months Follow Up Appt 6 months [facility] Work Phone: Start: 01-29-2014 End: 01-29-2014 MMM MMM [facility] Work Phone: Start: 01-08-2014 End: 01-09-2014 *BMP *BMP [facility] Work Phone: Start: 01-08-2014 End: 01-09-2014 *BMP *BMP [facility] Work Phone: Start: 12-31-2013 End: 12-31-2013 *BMP *BMP [facility] Work Phone: Start: 12-31-2013 End: 12-31-2013 *BMP *BMP [facility] Work Phone: Start: 10-09-2013 End: 10-11-2013 Hemoglobin by Imm presence in stool *Occult Blood, Stool [facility] Work Phone: Start: 10-09-2013 End: 10-11-2013 Hemoglobin by Imm presence in stool *Occult Blood, Stool [facility] Work Phone: Start: 10-03-2013 End: 10-08-2013 CBC W Auto Differential panel - Blood *CBC without Diff [facility] Work Phone: Start: 10-03-2013 End: 10-09-2013 Chest x-ray X-Ray, Chest, PA & Lateral [facility] Work Phone: Start: 10-03-2013 End: 10-03-2013 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 [facility] Work Phone: Start: 10-03-2013 End: 10-03-2013 Follow Up Appt 4 months Follow Up Appt 4 months [facility] Work Phone: Start: 10-03-2013 End: 10-03-2013 Pulmonary Fuction Test - complete Pulmonary Fuction Test - complete [facility] Work Phone: Start: 10-03-2013 End: 10-08-2013 CBC W Auto Differential panel - Blood *CBC without Diff [facility] Work Phone: Start: 10-03-2013 End: 10-09-2013 Chest x-ray X-Ray, Chest, PA & Lateral [facility] Work Phone: Start: 10-03-2013 End: 10-03-2013 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 [facility] Work Phone: Start: 10-03-2013 End: 10-03-2013 Follow Up Appt 4 months Follow Up Appt 4 months [facility] Work Phone: Start: 10-03-2013 End: 10-03-2013 Pulmonary Fuction Test - complete Pulmonary Fuction Test - complete [facility] Work Phone: Start: 05-25-2013 End: 10-09-2013 *BMP *BMP [facility] Work Phone: Start: 05-25-2013 End: 10-09-2013 *CBC with Differential *CBC with Differential [facility] Work Phone: Start: 05-25-2013 End: 05-25-2013 Follow Up Appt 4 months Follow Up Appt 4 months [facility] Work Phone: Start: 05-25-2013 End: 05-25-2013 MMM MMM [facility] Work Phone: Start: 05-25-2013 End: 10-09-2013 *BMP *BMP [facility] Work Phone: Start: 05-25-2013 End: 10-09-2013 *CBC with Differential *CBC with Differential [facility] Work Phone: Start: 05-25-2013 End: 05-25-2013 Follow Up Appt 4 months Follow Up Appt 4 months [facility] Work Phone: Start: 05-25-2013 End: 05-25-2013 MMM MMM [facility] Work Phone: Start: 05-01-2013 End: 10-09-2013 Follow Up Appt Other Follow Up Appt Other [facility] Work Phone: Start: 05-01-2013 End: 10-09-2013 Follow Up Appt Other Follow Up Appt Other [facility] Work Phone: Start: 04-18-2013 End: 05-02-2013 *BMP *BMP [facility] Work Phone: Start: 04-18-2013 End: 05-02-2013 *BMP *BMP [facility] Work Phone: Start: 04-04-2013 End: 04-04-2013 Follow Up Appt Other Follow Up Appt Other [facility] Work Phone: Start: 04-04-2013 End: 04-04-2013 Follow Up Appt Other Follow Up Appt Other [facility] Work Phone: Start: 02-15-2013 End: 02-15-2013 48 hour holter monitor 48 hour holter monitor [facility] Work Phone: Start: 02-15-2013 End: 02-15-2013 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 [facility] Work Phone: Start: 02-15-2013 End: 02-15-2013 Follow Up Appt 3 months Follow Up Appt 3 months [facility] Work Phone: Start: 02-15-2013 End: 02-15-2013 48 hour holter monitor 48 hour holter monitor [facility] Work Phone: Start: 02-15-2013 End: 02-15-2013 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 [facility] Work Phone: Start: 02-15-2013 End: 02-15-2013 Follow Up Appt 3 months Follow Up Appt 3 months [facility] Work Phone: Start: 01-03-2013 End: 01-03-2013 Ecg routine ecg w/least 12 lds w/i&r EKG (In office) [facility] Work Phone: Start: 01-03-2013 End: 01-03-2013 Follow Up Appt 6 weeks Follow Up Appt 6 weeks [facility] Work Phone: Start: 01-03-2013 End: 01-03-2013 MMM MMM [facility] Work Phone: Start: 01-03-2013 End: 01-03-2013 Nuclear stress test -adenosine Nuclear stress test -adenosine [facility] Work Phone: Start: 01-03-2013 End: 01-03-2013 Electrocardiogram, complete EKG (In office) [facility] Work Phone: Start: 01-03-2013 End: 01-03-2013 Follow Up Appt 6 weeks Follow Up Appt 6 weeks [facility] Work Phone: Start: 01-03-2013 End: 01-03-2013 MMM MMM [facility] Work Phone: Start: 01-03-2013 End: 01-03-2013 Nuclear stress test -adenosine Nuclear stress test -adenosine [facility] Work Phone: Patient Education [facility] Work Phone: Immunizations Immunization Date Immunization Notes Care Provider [facility] 06-09-2020 COVID-19, mRNA, LNP- S, PF, 100 mcg or 50 mcg dose; Translations: [Moderna COVID-19 Vaccine] DR TRISTEN JUAREZ MD [facility] 05-12-2020 COVID-19, mRNA, LNP- S, PF, 100 mcg or 50 mcg dose; Translations: [Moderna COVID-19 Vaccine] DR TRISTEN JUAREZ MD [facility] Payers Date Payer Category Payer Unknown [id number] 2019 Medicare [id number] 2019 Unknown [id number] 1950 Unknown [id number] 1950 Unknown [id number] Social History Date Type Detail Facility Start: 12-21-2017 End: 12-21-2017 Assertion Unknown if ever smoked [facility] Work Phone: Start: 09-13-2022 Tobacco smoking status Never s moked tobacco (finding) [facility] Sex Assigned At Female [facility] Functional Status Date Assessment Result Facility 09-13-2022 Functional Status Sleeping quiet ly with easy respirations [facility] 09-13-2022 Functional Status [facility] Mental Status Date Assessment Result Facility 09-13-2022 Mental Status Oriented x 4 [facility] Discharge instructions 09-13-2022 Note Date & Type Note Facility 09-13-2022 Hospital Discharg e instructions Patient Education 09/13/2022 10:49:48 Monitored Anesthesia Care, Care After Monitored Anesthesia Care, Care After These instructions provide you with information about caring for yourself after your procedure. Your health care provider may also give you more specific instructions. Your treatment has been planned according to current medical practices, but problems sometimes occur. Call your health care provider if you have any problems or questions after your procedure. What can I expect after the procedure? After your procedure, you may: Feel sleepy for several hours. Feel clumsy and have poor balance for several hours. Feel forgetful about what happened after the procedure. Have poor judgment for several hours. Feel nauseous or vomit. Have a sore throat if you had a breathing tube during the procedure. Follow these instructions at home: For at least 24 hours after the procedure: Have a responsible adult stay with you. It is important to have someone help care for you until you are awake and alert. Rest as needed. Do not: ?Participate in activities in which you could fall or become injured. ?Drive. ?Use heavy machinery. ?Drink alcohol. ?Take sleeping pills or medicines that cause drowsiness. ?Make important decisions or sign legal documents. ?Take care of children on your own. Eating and drinking Follow the diet that is recommended by your health care provider. If you vomit, drink water, juice, or soup when you can drink without vomiting. Make sure you have little or no nausea before eating solid foods. General instructions Take xmpn-vca-dswltcp and prescription medicines only as told by your health care provider. If you have sleep apnea, surgery and certain medicines can increase your risk for breathing problems. Follow instructions from your health care provider about wearing your sleep device: ?Anytime you are sleeping, including during daytime naps. ?While taking prescription pain medicines, sleeping medicines, or medicines that make you drowsy. If you smoke, do not smoke without supervision. Keep all follow-up visits as told by your health care provider. This is important. Contact a health care provider if: You keep feeling nauseous or you keep vomiting. You feel light-headed. You develop a rash. You have a fever. Get help right away if: You have trouble breathing. Summary For several hours after your procedure, you may feel sleepy and have poor judgment. Have a responsible adult stay with you for at least 24 hours or until you are awake and alert. This information is not intended to replace advice given to you by your health care provider. Make sure you discuss any questions you have with your health care provider. Document Released: 06/20/2016 Document Revised: 05/29/2018 Document Reviewed: 06/20/2016 [employer] Patient Education 2020 [employer] 09/13/2022 10:49:46 Colonoscopy, Adult, Care After Colonoscopy, Adult, Care After This sheet gives you information about how to care for yourself after your procedure. Your health care provider may also give you more specific instructions. If you have problems or questions, contact your health care provider. What can I expect after the procedure? After the procedure, it is common to have: A small amount of blood in your stool for 24 hours after the procedure. Some gas. Mild abdominal cramping or bloating. Follow these instructions at home: General instructions For the first 24 hours after the procedure: ?Do not drive or use machinery. ?Do not sign important documents. ?Do not drink alcohol. ?Do your regular daily activities at a slower pace than normal. ?Eat soft, ezrl-hr-ibxcxt foods. Take vkvs-oxd-rwpathk or prescription medicines only as told by your health care provider. Relieving cramping and bloating Try walking around when you have cramps or feel bloated. Apply heat to your abdomen as told by your health care provider. Use a heat source that your health care provider recommends, such as a moist heat pack or a heating pad. ?Place a towel between your skin and the heat source. ?Leave the heat on for 20 30 minutes. ?Remove the heat if your skin turns bright red. This is especially important if you are unable to feel pain, heat, or cold. You may have a greater risk of getting burned. Eating and drinking Drink enough fluid to keep your urine pale yellow. Resume your normal diet as instructed by your health care provider. Avoid heavy or fried foods that are hard to digest. Avoid drinking alcohol for as long as instructed by your health care provider. Contact a health care provider if: You have blood in your stool 2 3 days after the procedure. Get help right away if: You have more than a small spotting of blood in your stool. You pass large blood clots in your stool. Your abdomen is swollen. You have nausea or vomiting. You have a fever. You have increasing abdominal pain that is not relieved with medicine. Summary After the procedure, it is common to have a small amount of blood in your stool. You may also have mild abdominal cramping and bloating. For the first 24 hours after the procedure, do not drive or use machinery, sign important documents, or drink alcohol. Contact your health care provider if you have a lot of blood in your stool, nausea or vomiting, a fever, or increased abdominal pain. This information is not intended to replace advice given to you by your health care provider. Make sure you discuss any questions you have with your health care provider. Document Released: 10/12/2004 Document Revised: 12/21/2017 Document Reviewed: 05/11/2016 [employer] Patient Education 2020 [employer]. Follow Up Care 09/01/2022 08:49:33 With:TRISTEN JUAREZ MD Address: [address] [facility] [address] [place] [address] [phone] When: only if needed [facility] Summary of episode note 09-13-2022 Note Date & Type Note Facility 09-13-2022 Summary of episode note Discharge Instructions Thank you for allowing [facility] to assist you with your healthcare needs. The following is important discharge information regarding your hospital visit. Your Care Team AMAIRANI MALIK MD What to do next Instructions From Your Doctor COLONOSCOPY IN 2 YEARS DEPENDING ON LAB RESULTS. YOU SHOULD RECIEVE A PHONE CALL WITH LAB RESULTS BY THIS SUNDAY 09/17 OR THE TUESDAY AFTER DONT START TAKING YOUR XARELTO TILL NOON ON TUESDAY Follow Up Appointments Follow Up with TRISTEN JUAREZ MD When Only if needed Where: [address] [facility] [address] [place] [address] [phone] The Following Activity and Diet Have Been Ordered for You Discharge Activity - Ordered -- NO activity restrictions, 09/13/22 10:18:00 EDT Discharge Diet - Ordered -- Follow the post-operative/post-procedure diet instructions provided by your physician's office., 09/13/22 10:18:00 EDT The Following Equipment Has Been Ordered for You Discharge Home Equipment Discharge Wound Care - Ordered -- Follow the post-operative/post-procedure wound care instructions provided by your physician's office., 09/13/22 10:18:00 EDT Someone Will Contact You Regarding These Home Health Referrals No home referrals have been ordered for you. No one will call you. Allergies NKA Medications Please ask your primary doctor or pharmacist before taking any other medication not listed, including over the counter drugs, herbal medications, vitamins and or supplements as they may interact with your home medications. What How Much When Instructions Last Dose Unchanged amLODIPine (amLODIPine 5 mg oral tablet) TAKE 1 TABLET BY MOUTH EVERY DAY Unchanged flecainide (flecainide 100 mg oral tablet) 1 tab(s) by mouth Every 12 hours Unchanged furosemide (furosemide 40 mg oral tablet) TAKE 1 TABLET BY MOUTH EVERY DAY NEEDED FOR LEG SWELLING Unchanged hydrocortisone-pramoxine topical (Pramosone 2.5%-1% topical lotion) 1 (ONE) ML TWO TIMES DAILY Unchanged levothyroxine (levothyroxine 75 mcg (0.075 mg) oral tablet) TAKE 1 TABLET BY MOUTH EVERY DAY Unchanged losartan by mouth Once a day Unchanged metoprolol (metoprolol succinate 50 mg oral TABLET extended release) 1 tab(s) by mouth Once a day Unchanged Misc Medication ([employer] VITAMIN D3 25 MCG SOFTGEL) TAKE 1 CAPSULE BY MOUTH EVERY DAY FOR 90 DAYS Unchanged potassium chloride (Klor-Con M20 oral tablet, extended release) TAKE 1 TABLET ORALLY ONCE PER DAY FOR 30 DAYS Unchanged rivaroxaban (Xarelto 15 mg oral tablet) 1 tab(s) by mouth With supper Unchanged rOPINIRole (rOPINIRole 1 mg oral tablet) TAKE 1 TABLET ORALLY ONCE PER DAY FOR 90 DAYS Unchanged spironolactone (spironolactone 25 mg oral tablet) TAKE 1 TABLET BY MOUTH DAILY Please take this list to your next doctor s visit. Bring all medications you take, including over the counter medications, herbals and other supplements with you to your doctor s visit. Patients and families are reminded to discard old lists and to update any records with all medication providers or retail pharmacies. Education Materials Monitored Anesthesia Care, Care After These instructions provide you with information about caring for yourself after your procedure. Your health care provider may also give you more specific instructions. Your treatment has been planned according to current medical practices, but problems sometimes occur. Call your health care provider if you have any problems or questions after your procedure. What can I expect after the procedure? After your procedure, you may: Feel sleepy for several hours. Feel clumsy and have poor balance for several hours. Feel forgetful about what happened after the procedure. Have poor judgment for several hours. Feel nauseous or vomit. Have a sore throat if you had a breathing tube during the procedure. Follow these instructions at home: For at least 24 hours after the procedure: Have a responsible adult stay with you. It is important to have someone help care for you until you are awake and alert. Rest as needed. Do not: ? Participate in activities in which you could fall or become injured. ? Drive. ? Use heavy machinery. ? Drink alcohol. ? Take sleeping pills or medicines that cause drowsiness. ? Make important decisions or sign legal documents. ? Take care of children on your own. Eating and drinking Follow the diet that is recommended by your health care provider. If you vomit, drink water, juice, or soup when you can drink without vomiting. Make sure you have little or no nausea before eating solid foods. General instructions Take uuug-jcd-axiivbv and prescription medicines only as told by your health care provider. If you have sleep apnea, surgery and certain medicines can increase your risk for breathing problems. Follow instructions from your health care provider about wearing your sleep device: ? Anytime you are sleeping, including during daytime naps. ? While taking prescription pain medicines, sleeping medicines, or medicines that make you drowsy. If you smoke, do not smoke without supervision. Keep all follow-up visits as told by your health care provider. This is important. Contact a health care provider if: You keep feeling nauseous or you keep vomiting. You feel light-headed. You develop a rash. You have a fever. Get help right away if: You have trouble breathing. Summary For several hours after your procedure, you may feel sleepy and have poor judgment. Have a responsible adult stay with you for at least 24 hours or until you are awake and alert. This information is not intended to replace advice given to you by your health care provider. Make sure you discuss any questions you have with your health care provider. Document Released: 06/20/2016 Document Revised: 05/29/2018 Document Reviewed: 06/20/2016 [employer] Patient Education 2020 [employer] Colonoscopy, Adult, Care After This sheet gives you information about how to care for yourself after your procedure. Your health care provider may also give you more specific instructions. If you have problems or questions, contact your health care provider. What can I expect after the procedure? After the procedure, it is common to have: A small amount of blood in your stool for 24 hours after the procedure. Some gas. Mild abdominal cramping or bloating. Follow these instructions at home: General instructions For the first 24 hours after the procedure: ? Do not drive or use machinery. ? Do not sign important documents. ? Do not drink alcohol. ? Do your regular daily activities at a slower pace than normal. ? Eat soft, vgcp-hy-bfypos foods. Take [id number] or prescription medicines only as told by your health care provider. Relieving cramping and bloating Try walking around when you have cramps or feel bloated. Apply heat to your abdomen as told by your health care provider. Use a heat source that your health care provider recommends, such as a moist heat pack or a heating pad. ? Place a towel between your skin and the heat source. ? Leave the heat on for 20 30 minutes. ? Remove the heat if your skin turns bright red. This is especially important if you are unable to feel pain, heat, or cold. You may have a greater risk of getting burned. Eating and drinking Drink enough fluid to keep your urine pale yellow. Resume your normal diet as instructed by your health care provider. Avoid heavy or fried foods that are hard to digest. Avoid drinking alcohol for as long as instructed by your health care provider. Contact a health care provider if: You have blood in your stool 2 3 days after the procedure. Get help right away if: You have more than a small spotting of blood in your stool. You pass large blood clots in your stool. Your abdomen is swollen. You have nausea or vomiting. You have a fever. You have increasing abdominal pain that is not relieved with medicine. Summary After the procedure, it is common to have a small amount of blood in your stool. You may also have mild abdominal cramping and bloating. For the first 24 hours after the procedure, do not drive or use machinery, sign important documents, or drink alcohol. Contact your health care provider if you have a lot of blood in your stool, nausea or vomiting, a fever, or increased abdominal pain. This information is not intended to replace advice given to you by your health care provider. Make sure you discuss any questions you have with your health care provider. Document Released: 10/12/2004 Document Revised: 12/21/2017 Document Reviewed: 05/11/2016 [employer] Patient Education 2020 [employer]. Additional Information VACCINATE! IT SAVES LIVES! Members of the community who have not yet received the COVID-19 vaccine and would like to receive it can visit one of [facility] vaccine clinics. There are many vaccine clinic locations within the [facility]. For locations and available times, please visit https://gettheshot.coronavirus.[place].gov/. It is important to note that some COVID mobile vaccine clinics are held outdoors and may be canceled in rainy or stormy conditions. To learn more about pediatric vaccinations (ages 5-11), we invite you to visit the [facility] webpage. https://www.akronVaxarts.org/pag es/8237-Xthax-Eyyrwvaeydj-Frequent cy-Ylbtb-Wasdqcmut.html To learn more about the COVID-19 vaccine, we invite you to visit the CDC website for a list of frequently asked questions.https://www.cdc.gov/timur navirus/2019-ncov/vaccines/faq.htm l [employer] Patient Portal Access Instructions: Stay connected with your healthcare team and access your personal medical information anytime with the [facility] Patient Portal. Please follow the directions below to create your [facility] account: 1.Access the email account you provided upon registration to the hospital/physician office.2.Look for an invitation email from [facility].3.Open the email and access the invitation link: Accept Invitation to [facility].4.Fill in the required zuleta to create your account. To access your account, visit [email or web address]. Click the blue button labeled Access Patient Portal and then log in with the username and password that you created in the steps above. You will be able to view your test results, lab results, a summary of your visits, upcoming appointments and more. There is also a convenient messaging option where you can send secure messages to your provider. In addition, you will have the ability to download any documents or summaries to your computer and/or send the information securely to a physician. Remember that your healthcare information is confidential, so carefully consider who you will allow to register on the [facility] Patient Portal for access to your information. You can also access the [facility] Patient Portal on the [employer] hosea. Simply click on Patient Portal and then log into your account. If you would like to receive a full copy of your medical records, please contact the [facility] Medical Records Department by calling [phone], Tuesday through Tuesday between 8 a.m. and 4:30 p.m. HOW TO SAFELY DISPOSE OF PRESCRIPTION MEDICATIONS Please use one of the following methods to safely dispose of your unused medications. 1.Use a drug disposal kit: the drug disposal pouch allows you to safely discard your old and unused drugs. Ask your nurse to give you one when you are discharged.2.Visit a local take-back location: Many local pharmacies and police departments have programs that collect old and unwanted prescription drugs. Call your local pharmacy or go to http://Into[employer] Technology.Whatser/3P8Pk5y to find one close to you.3.Make use of household items: Use cat litter or old coffee grounds to dispose medications if other options are not available. Mix your drugs with these household products, seal them in an airtight container and throw it into the garbage. Call [facility]: [phone] to be sure your drugs can be disposed of in this way. Some medicines may require a different approach.4.Never flush your medications down the toilet. IF YOU HAVE BEEN PRESCRIBED AN OPIOID FOR PAIN If you have been prescribed an opioid (such as hydrocodone, oxycodone or morphine), it is critical to understand the possible side effects and risks of opioid pain medications. Even when taken as directed, opioids can have several side effects including: Tolerance, meaning you might need to take more of a medication for the same pain relief. Nausea, vomiting and/or constipation. Sleepiness, dizziness, dry mouth, confusion, depression or itching. Physical dependence, meaning you have withdrawal symptoms when a medication is stopped, can develop within a few days. KNOW YOUR RESPONSIBILITIES It is important to know exactly how much and how often to take the opioid pain medications you are prescribed. Never take opioids in higher amounts or more often than prescribed. Do not combine opioids with alcohol or other drugs that cause drowsiness, such as benzodiazepines, also known as benzos, including diazepam and alprazolam, muscle relaxants or sleep aids. Never sell or share prescription opioids. This is illegal. Store opioids in a secure place and out of reach of others (including children, family, friends and visitors). The last page of this document has been signed and retained as a CHART COPY. Signatures Patient Education Materials Monitored Anesthesia Care, Care After Colonoscopy, Adult, Care After Medication Leaflets My discharge plan and instructions have been reviewed and explained to me and IWILIAN LINDA S understand my current condition and have read and understand these discharge instructions. I have received a written copy of the plan/instructions. If I have questions, I am aware that I should contact my doctor. 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 Respiratory function: lungs are clear to auscultation. Respiratory support: none. CV function: Normal rate. Cardiovascular support: none. Pain. Nausea status: denies nausea. Postoperative hydration status: within normal limits. Digitally Signed by LONA JACKMAN on 09/13/2022 10:19 AM [facility] Anesthesiology Consult note 09-13-2022 Note Date & Type Note Facility 09-13-2022 Anesthesiology Consult note Patient: VIC WANG Age: 72 years Sex: Female : 1950 Associated Diagnoses: None Author: LONA JACKMAN Preoperative Information Time of last food or liquid consumption: 09/13/2022 06:00:00 Anesthesia history Patient's history: negative. Family's history: negative. Review of Systems Ear/Nose/Mouth/Throat: Negative. Respiratory: Negative. Cardiovascular: htn, a fib. Gastrointestinal: MO. Genitourinary: Negative. Endocrine: dm. Musculoskeletal: Negative. Integumentary: Negative. Neurologic: Negative. Health Status Allergies: Allergic Reactions (Selected) NKA, Allergies (1) ActiveReaction NKANone Documented Current medications: (Selected) Inpatient Medications Ordered LR 1000 mL: 100 mL, Intravenous Documented Medications Documented [facility] VITAMIN D3 25 MCG SOFTGEL: TAKE 1 CAPSULE BY MOUTH EVERY DAY FOR 90 DAYS Klor-Con M20 oral tablet, extended release: TAKE 1 TABLET ORALLY ONCE PER DAY FOR 30 DAYS Pramosone 2.5%-1% topical lotion: 1 (ONE) ML TWO TIMES DAILY Xarelto 15 mg oral tablet: 15 mg, 1 tab(s), Oral, with supper, 30 tab(s), 0 Refill(s) amLODIPine 5 mg oral tablet: TAKE 1 TABLET BY MOUTH EVERY DAY flecainide 100 mg oral tablet: 100 mg, 1 tab(s), Oral, q12h, 60 tab(s), 0 Refill(s) furosemide 40 mg oral tablet: TAKE 1 TABLET BY MOUTH EVERY DAY NEEDED FOR LEG SWELLING levothyroxine 75 mcg (0.075 mg) oral tablet: TAKE 1 TABLET BY MOUTH EVERY DAY losartan: Oral, qDay, 0 Refill(s) metoprolol succinate 50 mg oral TABLET extended release: 50 mg, 1 tab(s), Oral, qDay, 0 Refill(s) rOPINIRole 1 mg oral tablet: TAKE 1 TABLET ORALLY ONCE PER DAY FOR 90 DAYS spironolactone 25 mg oral tablet: TAKE 1 TABLET BY MOUTH DAILY, Medications (1) Active Scheduled: (0) Continuous: (1) Lactated Ringers Infusion 1000 mL 1,000 mL, Intravenous PRN: (0) Problem list: Active Problems (3) Atrial fibrillation Diabetes mellitus Hypertension Histories Past Medical History: No active or resolved past medical history items have been selected or recorded. Family History: No family history items have been selected or recorded. Procedure history: Colonoscopy ([id number]) on 09/12/2021 at 71 Years. Back fusion ([id number]). Comments: 09/13/2022 8:59 Nini Teixeira RN x4 Social History Social & Psychosocial Habits Alcohol 09/13/2022 Use: Never Substance Abuse 09/13/2022 Use: Never Tobacco 09/13/2022 Tobacco Use: Never (less than 100 in l Exposure to Tobacco Smoke Lives in non-smoking home Nutrition/Health 09/13/2022 Type of diet: Regular Appetite Excellent Eating Difficulties None . Physical Examination Vital Signs 09/13/2022 9:12 EDT Temperature Temporal Artery 35.9 DegC Apical Heart Rate 64 bpm Respiratory Rate 13 br/min LOW Systolic Blood Pressure Non-Invasive 123 mmHg Diastolic Blood Pressure Non-Invasive 66 mmHg Vital Signs(last 24 hrs) Last Charted Resp Rate L 13br/min (SEP 13 09:12) LDY069 mmHg (SEP 13 09:12) DBP66 mmHg (SEP 13 09:12) BMI28.32 (SEP 13 09:22) Measurements from flowsheet : Measurements 09/13/2022 9:22 EDT Height 165 cm Admission Weight 77.11 kg [place] Body Weight 56.91 kg BSA Admission 1.85 Body Mass Index 28.32 kg/m2 09/13/2022 9:12 EDT Height 165 cm Admission Weight 77.11 kg Weight Lbs 169.6 lb [place] Body Weight 56.91 kg Pain assessment: Pain Assessment 09/13/2022 9:12 EDT Primary Pain Intensity 0 Pain Scale Type 0-10 Pain scale . General: Alert and oriented. Airway: Normal temporomandibular joint mobility. Head: Normocephalic. Dentition Evaluation: Own teeth. Neck: Supple. Respiratory: Lungs are clear to auscultation. Cardiovascular: Normal rate. Heart Sounds: Normal. Gastrointestinal: Soft. Musculoskeletal Normal range of motion. Integumentary: Intact. Neurologic: Alert, Oriented. Review / Management Results review: No qualifying data available , Lab results 09/13/2022 9:37 EDT SN - Cul - Culture Type Tissue in Formalin 09/13/2022 9:37 EDT SN - CAt - Case Attendee SN - CAt - Case Attendee SN - CAt - Case Attendee SN - CAt - Case Attendee SN - CAt - Case Attendee SN - CAt - Case Attendee SN - CAt - Case Attendee SN - CAt - Case Attendee SN - CAt - Role Performed Primary Surgeon SN - CAt - Role Performed WATER TREATMENT SPECIALIST SN - CAt - Role Performed Screw Cutter SN - CAt - Role Performed Director [employer] 1 09/13/2022 9:22 EDT Designated Person #1 [employer] JONAH Wang [phone] Designated Person #1 Relationship Spouse Height 165 cm Admission Weight 77.11 kg [place] Body Weight 56.91 kg BSA Admission 1.85 Body Mass Index 28.32 kg/m2 Status N/A Sensory Deficits None Infectious Disease Symptoms Patient states no symptoms Infectious Disease Recent Exposure No Alcohol and Drug Use No Employee of Institutional Living No Health Care Employee No History of Exposure to TB No History of Positive Chest X-Ray for TB No History of Positive TB Skin Test No Homeless No Known Immunosuppression No Recent Immigrant No Resident of Institutional Living No Bloody Sputum No Fatigue No Fever No Loss of Appetite No Night Sweats No Persistent Cough > 3 Weeks No Weight Loss No Barriers to Learning None evident Teaching Method Explanation Preferred Written Language Solomon Islander Preferred Spoken Language [place] Islander Information Given by Patient Patient's Current Physicians Dr. bruner Discharge To, Anticipated Home independently Prev Test Positive/Diagnosis w/COVID-19 No Current Quarantine/Isolated any Illness No Any Contact with Sick Animals/Birds No Traveled Anywhere in Last 30 Days No N/A Personal Devices, Patient Valuables None Admission Note-Nursing Procedure/Therapy Intake 09/13/2022 9:20 EDT Lactated Ringers Injection Begin Bag 1,000 mL mL 09/13/2022 9:17 EDT Blood Glucose, Capillary 117 mg/dL HI Blood Glucose Testing Reason Routine 09/13/2022 9:16 EDT Hand Right 09/13/2022 21 gauge Peripheral IV Activity: Insert new site Peripheral IV Dressing Condition: Clean, Dry, Intact Peripheral IV Dressing Activity: Applied, Transparent dressing Peripheral IV Line Status/Patency: Continuous infusion Peripheral IV Line Care: Secured with tape Peripheral IV Site Condition: No complications Peripheral IV Equipment: Extension set Peripheral IV Number of Attempts: 1 09/13/2022 9:12 EDT Height 165 cm Admission Weight 77.11 kg Weight Lbs 169.6 lb [place] Body Weight 56.91 kg Temperature Temporal Artery 35.9 DegC Apical Heart Rate 64 bpm Respiratory Rate 13 br/min LOW Systolic Blood Pressure Non-Invasive 123 mmHg Diastolic Blood Pressure Non-Invasive 66 mmHg Primary Pain Intensity 0 Pain Scale Type 0-10 Pain scale Heart Rhythm Regular Respirations Unlabored Oxygen Therapy Room air Oxygen Saturation 97 % Abdomen Description Non-distended, Soft Skin Temperature Warm Skin Description [place], Normal for ethnicity, Dry Skin Integrity Intact Neurological Symptoms Patient denies Level of Consciousness Alert Strength All Extremities Strong Tone All Extremities Normal Sensation All Extremities Intact Affect/Behavior Appropriate, Calm, Cooperative Orientation Oriented x 4 Charles Motor (2) Moves 4 extremities voluntarily or on command Charles Respirations (2) Spontaneous respiration without support, RR > 10 Charles Blood Pressure (2) BP 20% above or below preanesthetic level Charles Pulse (2) Pulse 20% above or below preanesthetic level Charles Oxygen Saturation (2) 94% or more Charles Level of Consciousness (2) Fully awake Charles III Score 12 Orientation Assessment Oriented x 4 Activity Status ADL Awake, Resting Standard Safety ID band on, Allergy Band on, Call device within reach, Bed in low position, Wheels locked . Assessment and Plan [place] Society of Anesthesiologists (ASA) physical status classification: Class III. Anesthetic Preoperative Plan Anesthetic technique: MAC. Postoperative pain management: Per surgeon. Informed consent: signed by patient. Digitally Signed by LONA JACKMAN on 09/13/2022 09:39 AM [facility] Evaluation + Plan note Note Date & Type Note Facility Evaluation + Plan note No data available for this section [facility] Instructions Instruction Description Start Date Patient advised to follow-up with Primary Care Physician for BMI management. Advance Directives There may be information available, but it has not been provided by the sender. No Advanced Directives Records FoundNo Advanced Directives Records Found Assessments There may be information available, but it has not been provided by the sender. Review of System There may be information available, but it has not been provided by the sender. Family History There may be information available, but it has not been provided by the sender.No Family History Records FoundNo Family History Records Found Summary Purpose Additional Source Comments INFORMATION SOURCE (unrecogn ized section and content) DATE CREATED AUTHOR AUTHOR'S ORGANIZ ATION 09/18/2022 [facility] ([place]) Patient Care team informatio n (unrecognized section and content) Care Team Personnel Name: AMAIRANI MALIK MD Member Role: Primary Care Physician Address: Address: [facility] [facility] [address] [place] [address]- Care Team Related Persons Name: SEN WANG Address: Home [address] [place] [address] [place] [address] FOR RECORDS PERTAINING TO PATIENTS WHO ARE OR HAVE BEEN ENROLLED IN A CHEMICAL DEPENDENCY/SUBSTANCEABUSE PROGRAM, SOME INFORMATION MAY BE OMITTED. This clinical summary was aggregated from multiple sources. Caution should be exercised in using it in the provision of clinical care. This summary normalizes information from multiple sources, and as a consequence, information in this document may materially change the coding, format and clinical context of patient data. In addition, data may be omitted in some cases. CLINICAL DECISIONS SHOULD BE BASED ON THE PRIMARY CLINICAL RECORDS. [facility]. provides no warranty or guarantee of the accuracy or completeness of information in this document.
--- NOTE | 2023-03-30 14:35 | NEURO ---
NCS and/or EMG Patient Report Ordering Doctor: Franco Miguel DATE OF SERVICE: 03/30/23 Smiley presents for electrodiagnostic testing of the upper limbs. She has bilateral hand pain with weakness and numbness, worse on the right side. Electrodiagnostic findings: Right median motor nerve demonstrates normal distal latency and amplitude with reduced conduction velocity. Left median motor nerve demonstrates prolonged latency with normal amplitude and reduced conduction velocity. Ulnar motor response within normal limits bilaterally. Prolonged left median F?wave. Prolonged median sensory latency at the wrist bilaterally. Normal ulnar and radial sensory responses. Needle EMG testing was performed the upper limbs. All muscles tested showed no evidence of denervation with normal motor unit action potentials. Electrodiagnostic impression: This is an abnormal study in the upper limbs 1. Electrodiagnostic findings suggestive of bilateral median mononeuropathy. This is consistent with a mild right carpal tunnel syndrome and a moderate left carpal tunnel syndrome. 2. No electrodiagnostic evidence is noted for cervical radiculopathy. Multi Select Codes Neurology Neurology Interp Codes: 07400-99 Musc test done w/n test comp (interp) (2) and 29177-56 Nrv cndj test 11-12 studies (interp)
== END | disposition home or self-care (01) ==
PROVIDERS: PCP Family Medicine Geriatric Medicine; Referring Provider Orthopaedic Surgery; Visit Provider Orthopaedic Surgery
DX: M48.02 Spinal stenosis, cervical region (principal); R20.2 Paresthesia of skin
CPT/HCPCS: 95886; 95912

== ENCOUNTER → 2023-04-06 | Outpatient (CLI) | payer MEDICARE, OTHER, SELFPAY ==
--- NOTE | 2023-04-06 15:00 | BD_ITS ---
STUDY: DUAL ENERGY X-RAY ABSORPTIOMETRY / DXA REASON FOR EXAM: Female, 72 years old. Z780 TECHNIQUE: Bone Mineral Density (BMD) measurements of lumbar spine and bilateral hips were obtained. COMPARISON: Comparison is made with prior study dated July 27, 2016. FINDINGS: Lumbar Spine (L1-L4): g/cm2 (1.084) / T-score (0.6) / Z-score (2.9) Findings are suggestive of normal bone density with a low fracture risk. Left Femur Total: g/cm2 (0.962) / T-score (0.2) / Z-score (1.9) Left Femoral Neck: g/cm2 (0.786) / T-score (-0.6) / Z-score (1.5) Right Femur Total: g/cm2 (0.962) / T-score (0.2) / Z-score (1.9) Right Femoral Neck: g/cm2 (0.847) / T-score (0.0) / Z-score (2.0) The T-Scores on the most recent prior examination were: Lumbar Spine (L1-L4): There has been worsening of bone density since the previous examination. Left Femur Total: which represents a worsening of 6.3%. Right Femur Total: which represents a worsening of 8.2%. BD/Dexa Bone Density Study IMPRESSION: The patient is considered normal as outlined below according to World [place] Organization (WHO) criteria with a low fracture risk. There has been worsening of bone density since the previous examination. Reference Information: The T-score is the number of standard deviations above or below the standard which is normal for young adults at their peak bone mineral density. The World Health Organization (WHO) interprets the T-scores as follows: Above -1 Normal bone density Between -1 and -2.5 Osteopenia Equal to / or below -2.5 Osteoporosis As a practical clinical guideline, osteopenia may be graded as follows: Mild -1 through -1.5 Moderate -1.6 through -2.0 Severe -2.1 through -2.4 The Z-score is the number of standard deviations above or below age-matched controls. A Z-score of less than -1.5 would be considered abnormal. References: 1. NIH Osteoporosis and Related Bone Diseases www osteo.org 2. International Society for Clinical Densitometry www iscd.org 3. National Osteoporosis Foundation www nof.org Electronically Signed: Neil Rosario MD at 13:20 EST ,
== END | disposition home or self-care (01) ==
LOC: OPBD 14:55
PROVIDERS: PCP Family Medicine Geriatric Medicine; Referring Provider Family Medicine Geriatric Medicine; Visit Provider Family Medicine Geriatric Medicine
DX: Z78.0 Asymptomatic menopausal state (principal)
CPT/HCPCS: 77080

== ENCOUNTER → 2023-04-25 | Outpatient (CLI) | payer MEDICARE, OTHER, SELFPAY ==
[2023-04-25 14:27] LABS: Absolute Lymphocyte Count 2.31 X10^3/uL (0.83-4.51); Basophil# 0.09 X10^3/uL; Eosinophil# 0.23 X10^3/uL; Eosinophils% 2.5 % (0-5); Hematocrit 42.1 % (37-47); Lymphocyte # 2.31 X10^3/ul (0.83-4.51); Lymphocyte % 24.7 % (19-41); Mean Corp Hgb Conc 30.9 g/dL (32-36); Mean Corpuscular Hgb 24.1 pg (27.0-32.0); Mean Platelet Vol. 10.2 fl (6.2-12.0); Monocyte# 0.67 X10^3/uL; Monocyte% 7.2 % (0-10); NRBC Flagged by Analyzer 0 % (0-5); Neutrophil % 64.1 % (47-70); Platelet Count 337 K/mm3 (150-450); RBC Distribution Width CV 14.4 % (11.6-14.6); RBC Distribution Width SD 40.3 fl (35.1-43.9); White Blood Count 9.4 K/mm3 (4.4-11.0)
[2023-04-25 14:50] LABS: Anion Gap 2 (5-15); BUN 23 mg/dL (7-18); BUN/Creat Ratio 19.5 RATIO (10-20); Calcium,Total 9.1 mg/dL (8.5-10.1); Chloride 106 mmol/L (98-107); Creatinine, Serum 1.18 mg/dL (0.55-1.02); EST Glomerular Filtration Rate 48 mL/min (>60); Est Glom Filt Rate - Afr Amer 58 mL/min (>60); Glucose 97 mg/dL (74-106); Potassium 4.7 mmol/L (3.5-5.1); Sodium Level 139 mmol/L (136-145)
[2023-04-25 15:00] LABS: Hemoglobin A1c 5.8 % (3.8-5.6)
--- OUTSIDE RECORDS SUMMARY | 2023-04-25 18:56 | XMS RPT_ITS | CCD ---
Author Name Unknown Address [address] [place] [address] Organization [facility] Care Team Providers Care Molded Grid And Parts Inspector Name Role Phone MD Lexx, Kahlil Larry Unavailable [facility] Nurse Unavailable Unavailable Raysa Oshea Unavailable Unavailable Demetri RODRIGUEZ, Elroy V Unavailable Raysa Oshea Unavailable Unavailable SELF, SELF Referring Unavailable AMAIRANI MALIK Primary Care Unavailable KING RODRIGUEZ, DR BALES Primary Care Physician KING RODRIGUEZ, DR BALES Primary Care Unavailable LARRY RODRIGUEZ, DR RAMON Attending Unavailabl e Allergies Allergy Classification Reported Allergen(s) Allergy Type Date of Onset Reaction(s) Facility (5 sources) amLODIPine drug allergy 05-01-19 14 edema [facility] Work Phone: (5 sources) hydroCHLOROthiazide drug allergy 07-03-19 16 doesnt feel good [facility] Work Phone: (8 sources) NKDA drug allergy 01-04-20 13 [facility] Work Phone: (1 source) Tree; Translations: [TREES] allergy to substance 10-27-19 12 sneezing [facility] Work Phone: (1 source) RAGWEED; Translations: [RAGWEED] allergy to substance 10-27-19 12 sneezing [facility] Work Phone: (1 source) GRASS; Translations: [GRASS] allergy to substance 10-27-19 12 sneezing, runny nose [facility] Work Phone: Medications Current Medications Medication [...] 4-6 as needed for pain HYDROCODONE-ACETAM INOPHEN [phone] Elroy Mosquera MD Problems Active Problems Problem [...] (current) use of other medications; Translations: [Other jail (current) drug therapy] Onset: 12-28-2013 Resolved: 10-18-2014 12-28-2013 Episodic Other aftercare (1 source) Other rat exterminator (current) drug therapy; Translations: [Other rat exterminator (current) drug therapy] Onset: 10-18-2014 10-18-2014 Episodic Other lower respiratory disease (5 sources) Dyspnea; Translations: [Shortness of breath] Onset: 10-16-2014 10-16-2014 Episodic Unclassified (1 source) Problem Results Test Name Value Interpretation Reference Range Facil ity Vital Signs Date Time Vital Sign Value Performing Clinician Facility 09-13-2022 10:55-0400 Diastolic Blood Pressure Non-Invasive [address] TRISTEN JUAREZ MD [facility] 09-13-2022 10:55-0400 Heart rate 62 /min DR TRISTEN JUAREZ MD [facility] 09-13-2022 10:55-0400 Respiratory rate 15 /min DR TRISTEN JUAREZ MD [facility] 09-13-2022 10:55-0400 Systolic Blood Pressure Non-Invasive [address] TRISTEN JUAREZ MD [facility] 09-13-2022 10:36-0400 Diastolic Blood Pressure Non-Invasive [address] TRISTEN JUAREZ MD [facility] 09-13-2022 10:36-0400 Heart rate 66 /min DR TRISTEN JUAREZ MD [facility] 09-13-2022 10:36-0400 Respiratory rate 15 /min DR TRISTEN JUAREZ MD [facility] 09-13-2022 10:36-0400 Systolic Blood Pressure Non-Invasive [address] TRISTEN JUAREZ MD [facility] 09-13-2022 10:31-0400 Diastolic Blood Pressure Non-Invasive [address] TRISTEN JUAREZ MD [facility] 09-13-2022 10:31-0400 Heart rate 63 /min DR TRISTEN JUAREZ MD [facility] 09-13-2022 10:31-0400 Respiratory rate 15 /min DR TRISTEN JUAREZ MD [facility] 09-13-2022 10:31-0400 Systolic Blood Pressure Non-Invasive [address] TRISTEN JUAREZ MD [facility] 09-13-2022 10:18-0400 Body temperature 96.8 [degF] DR TRISTEN JUAREZ MD [facility] 09-13-2022 10:15-0400 Heart rate 68 /min DR TRISTEN JUAREZ MD [facility] 09-13-2022 10:15-0400 Respiratory Rate - Anes 15 br/min DR TRISTEN JUAREZ MD [facility] 09-13-2022 10:10-0400 Heart rate 63 /min DR TRISTEN JUAREZ MD [facility] 09-13-2022 10:10-0400 Respiratory Rate - Anes 15 br/min DR TRISTEN JUAREZ MD [facility] 09-13-2022 10:05-0400 Heart rate 69 /min DR TRISTEN JUAREZ MD [facility] 09-13-2022 10:05-0400 Respiratory Rate - Anes 15 br/min DR TRISTEN JUAREZ MD [facility] 09-13-2022 09:22-0400 Body height [address] TRISTEN JUAREZ MD [facility] 09-13-2022 09:22-0400 Body weight 77.[address] TRISTEN JUAREZ MD [facility] 09-13-2022 09:22-0400 Body weight 28.32 kg/m2 DR TRISTEN JUAREZ MD [facility] 09-13-2022 09:12-0400 Body height [address] TRISTEN JUAREZ MD [facility] 09-13-2022 09:12-0400 Body temperature 96.62 [degF] DR TRISTEN JUAREZ MD [facility] 09-13-2022 09:12-0400 Body weight 77.[address] TRISTEN JUAREZ MD [facility] 12-09-2016 14:48-0400 BMI (Body Mass Index) 34.76 kg/m2 [facility] Work Phone: 12-09-2016 14:48-0400 BP Diastolic 70 mm[Hg] [facility] Work Phone: 12-09-2016 14:48-0400 BP Systolic 120 mm[Hg] [facility] Work Phone: 12-09-2016 14:48-0400 Height 163.83 cm [facility] Work Phone: 12-09-2016 14:48-0400 Pulse (Heart Rate) 60 /min [facility] Work Phone: 12-09-2016 14:48-0400 Respiratory Rate 20 /min [facility] Work Phone: 12-09-2016 14:48-0400 Weight 93.31 kg [facility] Work Phone: 12-11-2015 13:08-0400 BSA (Body Surface Area) 1.98 m2 [facility] Work Phone: 10-17-2014 13:49-0400 Heart rate 69 /min Harumi DeFinis [facility] Work Phone: 10-17-2014 12:37-0400 Pulse Oximetry 98 % [facility] Work Phone: 04-04-2013 11:00-0500 Heart rate 441 ms Harumi DeFinis [facility] Work Phone: NEGATED: Highlighted [id number] 15:40-0400 BMI (Body Mass Index) 28.42 kg/m2 Jean Carlos King SUSTAINABILITY PROJECT COORDINATOR [facility] Work Phone: NEGATED: Highlighted [id number] 15:40-0400 BP Diastolic 75 mm[Hg] Jean Carlos King SUSTAINABILITY PROJECT COORDINATOR [facility] Work Phone: NEGATED: Highlighted [id number] 15:40-0400 BP Systolic 136 mm[Hg] Jean Carlos King [facility] Work Phone: NEGATED: Highlighted [id number] 15:40-0400 Height 162.56 cm Jean Carlos King [facility] Work Phone: NEGATED: Highlighted [id number] 15:40-0400 Height 163 cm Jean Carlos King [facility] Work Phone: NEGATED: Highlighted [id number] 15:40-0400 Pulse (Heart Rate) 63 /min Jean Carlos King SUSTAINABILITY PROJECT COORDINATOR [facility] Work Phone: NEGATED: Highlighted [id number] 15:40-0400 Weight 74.84 kg Jean Carlos King SUSTAINABILITY PROJECT COORDINATOR [facility] Work Phone: NEGATED: Highlighted [id number] 15:40-0400 Weight 75 kg Jean Carlos King [facility] Work Phone: Encounters Encounter Date Encounter Type Care Provider Facility Start: 09-13-2022 End: 09-13-[address] AMAIRANI MALIK MD Facility:[facility] Start: 09-13-2022 End: 09-13-[address] TRISTEN JUAREZ MD [facility] Start: 12-05-2019 Patient encounter procedure SELF SELF Facility:[facility] Start: 12-21-2017 End: 12-21-2017 Patient encounter procedure Elroy Mosquera MD Work Phone: [facility] Work Phone: Start: 12-21-2017 End: 12-21-2017 Pt evaluation Elroy Mosquera MD Work Phone: [facility] Work Phone: Procedures Date Procedure Procedure [...] PA-C Work Phone: Start: 05-27-2015 End: 05-27-2015 THREAD TOOL GRINDER SET UP OPERATOR Radha Jay PA-C Work Phone: Start: 05-27-2015 End: 05-27-2015 Follow Up Appt 6 months Radha dunbar PA-C Work Phone: Start: 05-27-2015 End: 05-27-2015 Follow Up BP Check Radha Jay PA-C Work Phone: Start: 05-27-2015 End: 05-27-2015 THREAD TOOL GRINDER SET UP OPERATOR Radha Jay PA-C Work Phone: Start: 05-27-2015 [...] Sammy Acuña Start: 01-28-2015 End: 05-15-2015 MMM Kalhil Hallman MD Start: 10-17-2014 End: 10-17-2014 *BMP [...] MMSammy Hallman MD Start: 09-20-2014 End: 10-17-2014 THREAD TOOL GRINDER SET UP OPERATOR Radha Jay PA-C Work Phone: Start: 09-20-2014 [...] PA-C Work Phone: Start: 07-30-2014 End: 07-30-2014 THREAD TOOL GRINDER SET UP OPERATOR Radha Jay PA-C Work Phone: Start: 07-30-2014 [...] PA-C Work Phone: Start: 10-03-2013 End: 10-03-2013 THREAD TOOL GRINDER SET UP OPERATOR Radha Jay PA-C Work Phone: Start: 10-03-2013 [...] PA-C Work Phone: Start: 10-03-2013 End: 10-03-2013 THREAD TOOL GRINDER SET UP OPERATOR Radha Jay PA-C Work Phone: Start: 10-03-2013 [...] PA-C Work Phone: Start: 02-15-2013 End: 02-15-2013 THREAD TOOL GRINDER SET UP OPERATOR Radha Jay PA-C Work Phone: Start: 02-15-2013 End: 02-15-2013 Follow Up Appt 3 months Radha dunbar PA-C Work Phone: Start: 02-15-2013 End: 04-04-2013 48 hour holter monitor Radha kemp PA-C Work Phone: Start: 02-15-2013 End: 02-15-2013 THREAD TOOL GRINDER SET UP OPERATOR Radha Jay PA-C Work Phone: Start: 02-15-2013 [...] Author Start: 12-21-2017 End: 12-21-2017 Appointment Appointment [facility] Work Phone: Start: 12-21-2017 End: 12-21-2017 Njx dx/ther sbst intrlmnr lmbr/sac w/img gdn Epidural injection(s) - Lumbar [facility] Work Phone: Start: 12-21-2017 End: 12-21-2017 Pain Management consultation Pain Management consultation [facility] Work Phone: Start: 06-13-2017 End: 12-16-2016 *Hepatic Function Panel *Hepatic Function Panel [facility] Work Phone: Start: 06-13-2017 End: 12-16-2016 Lipid panel [AGGREGATE] *Lipid Profile CC PCP [facility] Work Phone: Start: 05-17-2017 End: 05-17-2017 Appointment Appointment [facility] Work Phone: Start: 12-09-2016 End: 12-12-2016 *Hepatic Function Panel *Hepatic Function Panel [facility] Work Phone: Start: 12-09-2016 End: 12-09-2016 Follow Up Appt 6 months Follow Up Appt 6 months [facility] Work Phone: Start: 12-09-2016 End: 12-12-2016 Lipid panel [AGGREGATE] *Lipid Profile CC PCP [facility] Work Phone: Start: 12-09-2016 End: 12-09-2016 MMM MMM [facility] Work Phone: Start: 12-09-2016 End: 12-12-2016 *Hepatic Function Panel *Hepatic Function Panel [facility] Work Phone: Start: 12-09-2016 End: 12-09-2016 Follow Up Appt 6 months Follow Up Appt 6 months [facility] Work Phone: Start: 12-09-2016 End: 12-12-2016 Lipid panel [AGGREGATE] *Lipid Profile CC PCP [facility] Work Phone: Start: 12-09-2016 End: 12-09-2016 MMM MMM [facility] Work Phone: Start: 06-08-2016 End: 06-08-2016 THREAD TOOL GRINDER SET UP OPERATOR THREAD TOOL GRINDER SET UP OPERATOR [facility] Work Phone: Start: 06-08-2016 End: 06-08-2016 Follow Up Appt 6 months Follow Up Appt 6 months [facility] Work Phone: Start: 06-08-2016 End: 06-08-2016 THREAD TOOL GRINDER SET UP OPERATOR THREAD TOOL GRINDER SET UP OPERATOR [facility] Work Phone: Start: 06-08-2016 End: [...] 04-22-2015 *Hepatic Function Panel *Hepatic Function Panel [facility] Work Phone: Start: 10-21-2015 End: 04-22-2015 Lipid panel [AGGREGATE] *Lipid Profile CC PCP [facility] Work Phone: Start: 07-01-2015 End: 07-01-2015 *BMP *BMP [facility] Work Phone: Start: 07-01-2015 End: 07-01-2015 *BMP *BMP [facility] Work Phone: Start: 06-25-2015 End: 06-25-2015 Follow Up BP Check Follow Up BP Check [facility] Work Phone: Start: 06-25-2015 End: 06-25-2015 Follow Up BP Check Follow Up BP Check [facility] Work Phone: Start: 05-27-2015 End: 05-27-2015 THREAD TOOL GRINDER SET UP OPERATOR THREAD TOOL GRINDER SET UP OPERATOR [facility] Work Phone: Start: 05-27-2015 End: 05-27-2015 Follow Up Appt 6 months Follow Up Appt 6 months [facility] Work Phone: Start: 05-27-2015 End: 05-27-2015 Follow Up BP Check Follow Up BP Check [facility] Work Phone: Start: 05-27-2015 End: 05-27-2015 THREAD TOOL GRINDER SET UP OPERATOR THREAD TOOL GRINDER SET UP OPERATOR [facility] Work Phone: Start: 05-27-2015 End: 05-27-2015 Follow Up Appt 6 months Follow Up Appt 6 months [facility] Work Phone: Start: 05-27-2015 End: 05-27-2015 Follow Up BP Check Follow Up BP Check [facility] Work Phone: Start: 04-21-2015 End: 04-21-2015 *Hepatic Function Panel *Hepatic Function Panel [facility] Work Phone: Start: 04-21-2015 End: 04-21-2015 Lipid panel [AGGREGATE] *Lipid Profile CC PCP [facility] Work Phone: Start: 04-21-2015 End: 04-21-2015 *Hepatic Function Panel *Hepatic Function Panel [facility] Work Phone: Start: 04-21-2015 End: 04-21-2015 Lipid panel [AGGREGATE] *Lipid Profile CC PCP [facility] Work Phone: Start: 01-28-2015 End: 01-29-2015 Ambulatory BP Monitor 24 HR Ambulatory BP Monitor 24 HR [facility] Work Phone: Start: 01-28-2015 End: 05-15-2015 Follow Up Appt 4 months Follow Up Appt 4 months [facility] Work Phone: Start: 01-28-2015 End: 05-15-2015 MMM MMM [facility] Work Phone: Start: 01-28-2015 End: 01-29-2015 Ambulatory BP Monitor 24 HR Ambulatory BP Monitor 24 HR [facility] Work Phone: Start: 01-28-2015 End: 05-15-2015 Follow Up Appt 4 months Follow Up Appt 4 months [facility] Work Phone: Start: 01-28-2015 End: 05-15-2015 MMM MMM [facility] Work Phone: Start: 10-17-2014 End: 10-17-2014 *BMP *BMP [facility] Work Phone: Start: 10-17-2014 End: 10-17-2014 CBC W Auto Differential panel - Blood *CBC without Diff [facility] Work Phone: Start: 10-17-2014 End: 10-23-2014 Chest x-ray X-Ray, Chest, PA & Lateral [facility] Work Phone: Start: 10-17-2014 End: 10-17-2014 Ecg routine ecg w/least 12 lds w/i&r EKG (In office) [facility] Work Phone: Start: 10-17-2014 End: 10-17-2014 Follow Up Appt 3 months Follow Up Appt 3 months [facility] Work Phone: Start: 10-17-2014 End: 10-17-2014 INR Coag [facility] (PPP) *PT/INR [facility] Work Phone: Start: 10-17-2014 End: 10-17-2014 Left Heart Cath Left Heart Cath [facility] Work Phone: Start: 10-17-2014 End: 10-17-2014 MMM MMM [facility] Work Phone: Start: 10-17-2014 End: 10-17-2014 *BMP *BMP [facility] Work Phone: Start: 10-17-2014 End: 10-17-2014 CBC W Auto Differential panel - Blood *CBC without Diff [facility] Work Phone: Start: 10-17-2014 End: 10-23-2014 Chest x-ray X-Ray, Chest, PA & Lateral [facility] Work Phone: Start: 10-17-2014 End: 10-17-2014 Coagulation factor induced.INR assay in platelet poor plasma *PT/INR [facility] Work Phone: Start: 10-17-2014 End: 10-17-2014 Electrocardiogram, complete EKG (In office) [facility] Work Phone: Start: 10-17-2014 End: 10-17-2014 Follow Up Appt 3 months Follow Up Appt 3 months [facility] Work Phone: Start: 10-17-2014 End: 10-17-2014 Left Heart Cath Left Heart Cath [facility] Work Phone: Start: 10-17-2014 End: 10-17-2014 MMM MMM [facility] Work Phone: Start: 09-20-2014 End: 10-17-2014 THREAD TOOL GRINDER SET UP OPERATOR THREAD TOOL GRINDER SET UP OPERATOR [facility] Work Phone: Start: 09-20-2014 End: 10-17-2014 Ecg routine ecg w/least 12 lds w/i&r EKG (In office) [facility] Work Phone: Start: 09-20-2014 End: 10-17-2014 Follow Up Appt 3 months Follow Up Appt 3 months [facility] Work Phone: Start: 09-20-2014 End: 10-17-2014 THREAD TOOL GRINDER SET UP OPERATOR THREAD TOOL GRINDER SET UP OPERATOR [facility] Work Phone: Start: 09-20-2014 End: 10-17-2014 Electrocardiogram, complete EKG (In office) [facility] Work Phone: Start: 09-20-2014 End: 10-17-2014 Follow Up Appt 3 months Follow Up Appt 3 months [facility] Work Phone: Start: 07-30-2014 End: 07-30-2014 THREAD TOOL GRINDER SET UP OPERATOR THREAD TOOL GRINDER SET UP OPERATOR [facility] Work Phone: Start: 07-30-2014 End: 07-30-2014 Follow Up Appt 6 months Follow Up Appt 6 months [facility] Work Phone: Start: 07-30-2014 End: 07-30-2014 Follow Up Appt Other Follow Up Appt Other [facility] Work Phone: Start: 07-30-2014 End: 07-30-2014 Follow Up BP Check Follow Up BP Check [facility] Work Phone: Start: 07-30-2014 End: 07-30-2014 THREAD TOOL GRINDER SET UP OPERATOR THREAD TOOL GRINDER SET UP OPERATOR [facility] Work Phone: Start: 07-30-2014 End: 07-30-2014 Follow Up Appt 6 months Follow Up Appt 6 months [facility] Work Phone: Start: 07-30-2014 End: 07-30-2014 Follow Up Appt Other Follow Up Appt Other [facility] Work Phone: Start: 07-30-2014 End: 07-30-2014 Follow Up BP Check Follow Up BP Check [facility] Work Phone: Start: 01-29-2014 End: 01-29-2014 Follow Up Appt 6 months Follow Up Appt 6 months [facility] Work Phone: Start: 01-29-2014 End: 01-29-2014 MMM MMM [facility] Work Phone: Start: 01-29-2014 End: 01-29-2014 Follow Up Appt 6 months Follow Up Appt 6 months [facility] Work Phone: Start: 01-29-2014 End: 01-29-2014 MMM MMM [facility] Work Phone: Start: 01-08-2014 End: 01-09-2014 *BMP *BMP [facility] Work Phone: Start: 01-08-2014 End: 01-09-2014 *BMP *BMP [facility] Work Phone: Start: 12-31-2013 End: 12-31-2013 *BMP *BMP [facility] Work Phone: Start: 12-31-2013 End: 12-31-2013 *BMP *BMP [facility] Work Phone: Start: 10-09-2013 End: 10-11-2013 Hemoglobin by Imm presence in stool *Occult Blood, Stool [facility] Work Phone: Start: 10-09-2013 End: 10-11-2013 Hemoglobin by Imm presence in stool *Occult Blood, Stool [facility] Work Phone: Start: 10-03-2013 End: 10-08-2013 CBC W Auto Differential panel - Blood *CBC without Diff [facility] Work Phone: Start: 10-03-2013 End: 10-09-2013 Chest x-ray X-Ray, Chest, PA & Lateral [facility] Work Phone: Start: 10-03-2013 End: 10-03-2013 THREAD TOOL GRINDER SET UP OPERATOR THREAD TOOL GRINDER SET UP OPERATOR [facility] Work Phone: Start: 10-03-2013 End: 10-03-2013 Follow Up Appt 4 months Follow Up Appt 4 months [facility] Work Phone: Start: 10-03-2013 End: 10-03-2013 Pulmonary Fuction Test - complete Pulmonary Fuction Test - complete [facility] Work Phone: Start: 10-03-2013 End: 10-08-2013 CBC W Auto Differential panel - Blood *CBC without Diff [facility] Work Phone: Start: 10-03-2013 End: 10-09-2013 Chest x-ray X-Ray, Chest, PA & Lateral [facility] Work Phone: Start: 10-03-2013 End: 10-03-2013 THREAD TOOL GRINDER SET UP OPERATOR THREAD TOOL GRINDER SET UP OPERATOR [facility] Work Phone: Start: 10-03-2013 End: 10-03-2013 Follow Up Appt 4 months Follow Up Appt 4 months [facility] Work Phone: Start: 10-03-2013 End: 10-03-2013 Pulmonary Fuction Test - complete Pulmonary Fuction Test - complete [facility] Work Phone: Start: 05-25-2013 End: 10-09-2013 *BMP *BMP [facility] Work Phone: Start: 05-25-2013 End: 10-09-2013 *CBC with Differential *CBC with Differential [facility] Work Phone: Start: 05-25-2013 End: 05-25-2013 Follow Up Appt 4 months Follow Up Appt 4 months [facility] Work Phone: Start: 05-25-2013 End: 05-25-2013 MMM MMM [facility] Work Phone: Start: 05-25-2013 End: 10-09-2013 *BMP *BMP [facility] Work Phone: Start: 05-25-2013 End: 10-09-2013 *CBC with Differential *CBC with Differential [facility] Work Phone: Start: 05-25-2013 End: 05-25-2013 Follow Up Appt 4 months Follow Up Appt 4 months [facility] Work Phone: Start: 05-25-2013 End: 05-25-2013 MMM MMM [facility] Work Phone: Start: 05-01-2013 End: 10-09-2013 Follow Up Appt Other Follow Up Appt Other [facility] Work Phone: Start: 05-01-2013 End: 10-09-2013 Follow Up Appt Other Follow Up Appt Other [facility] Work Phone: Start: 04-18-2013 End: 05-02-2013 *BMP *BMP [facility] Work Phone: Start: 04-18-2013 End: 05-02-2013 *BMP *BMP [facility] Work Phone: Start: 04-04-2013 End: 04-04-2013 Follow Up Appt Other Follow Up Appt Other [facility] Work Phone: Start: 04-04-2013 End: 04-04-2013 Follow Up Appt Other Follow Up Appt Other [facility] Work Phone: Start: 02-15-2013 End: 02-15-2013 48 hour holter monitor 48 hour holter monitor [facility] Work Phone: Start: 02-15-2013 End: 02-15-2013 THREAD TOOL GRINDER SET UP OPERATOR THREAD TOOL GRINDER SET UP OPERATOR [facility] Work Phone: Start: 02-15-2013 End: 02-15-2013 Follow Up Appt 3 months Follow Up Appt 3 months [facility] Work Phone: Start: 02-15-2013 End: 02-15-2013 48 hour holter monitor 48 hour holter monitor [facility] Work Phone: Start: 02-15-2013 End: 02-15-2013 THREAD TOOL GRINDER SET UP OPERATOR THREAD TOOL GRINDER SET UP OPERATOR [facility] Work Phone: Start: 02-15-2013 End: 02-15-2013 Follow Up Appt 3 months Follow Up Appt 3 months [facility] Work Phone: Start: 01-03-2013 End: 01-03-2013 Ecg routine ecg w/least 12 lds w/i&r EKG (In office) [facility] Work Phone: Start: 01-03-2013 End: 01-03-2013 Follow Up Appt 6 weeks Follow Up Appt 6 weeks [facility] Work Phone: Start: 01-03-2013 End: 01-03-2013 MMM MMM [facility] Work Phone: Start: 01-03-2013 End: 01-03-2013 Nuclear stress test -adenosine Nuclear stress test -adenosine [facility] Work Phone: Start: 01-03-2013 End: 01-03-2013 Electrocardiogram, complete EKG (In office) [facility] Work Phone: Start: 01-03-2013 End: 01-03-2013 Follow Up Appt 6 weeks Follow Up Appt 6 weeks [facility] Work Phone: Start: 01-03-2013 End: 01-03-2013 MMM MMM [facility] Work Phone: Start: 01-03-2013 End: 01-03-2013 Nuclear stress test -adenosine Nuclear stress test -adenosine [facility] Work Phone: Patient Education [facility] Work Phone: Immunizations Immunization Date Immunization Notes Care Provider Fa [facility] 06-09-2020 COVID-19, mRNA, LNP- S, PF, 100 mcg or 50 mcg dose; Translations: [Moderna COVID-19 Vaccine] DR TRISTEN JUAREZ MD [facility] 05-12-2020 COVID-19, mRNA, LNP- S, PF, 100 mcg or 50 mcg dose; Translations: [Moderna COVID-19 Vaccine] DR TRISTEN JUAREZ MD [facility] Payers Date Payer Category Payer Unknown [id number] 2019 Medicare [id number] 2019 Unknown [id number] 1950 Unknown [id number] 1950 Unknown [id number] Social History Date Type Detail Facility Start: 12-21-2017 End: 12-21-2017 Assertion Unknown if ever smoked [facility] Work Phone: Start: 09-13-2022 Tobacco smoking status Never s moked tobacco (finding) [facility] Sex Assigned At Female [facility] Functional Status Date Assessment Result Facility 09-13-2022 Functional Status Sleeping quiet ly with easy respirations [facility] 09-13-2022 Functional Status [facility] Mental Status Date Assessment Result Facility 09-13-2022 Mental Status Oriented x 4 [facility] Discharge instructions 09-13-2022 Note Date & Type [...] before eating solid foods. General instructions Take upzc-azf-pxgctjt and prescription medicines only as told by [...] 06/20/2016 Document Revised: 05/29/2018 Document Reviewed: 06/20/2016 [employer] Patient Education 2020 [employer] 09/13/2022 10:49:46 Colonoscopy, Adult, Care After [...] a slower pace than normal. ?Eat soft, rzfc-xy-eytrma foods. Take rugm-vzr-yutbnss or prescription medicines only as told by [...] 10/12/2004 Document Revised: 12/21/2017 Document Reviewed: 05/11/2016 [employer] Patient Education 2020 [employer]. Follow Up Care 09/01/2022 08:49:33 With:TRISTEN JUAREZ MD Address: [address] [place] [address] [phone] When: only if needed [facility] Mario Summary of episode note 09-13-2022 Note Date & Type Note Facility 09-13-2022 Summary of episode note Discharge Instructions Thank you for allowing [facility] to assist you with your healthcare needs. [...] needed Where: [address] [facility] [address] [place] [address]- [phone] The Following Activity and Diet Have Been [...] before eating solid foods. General instructions Take ncdh-rxi-gdvjpms and prescription medicines only as told by [...] 06/20/2016 Document Revised: 05/29/2018 Document Reviewed: 06/20/2016 [employer] Patient Education 2020 [employer] Colonoscopy, Adult, Care After This sheet [...] slower pace than normal. ? Eat soft, dssq-ys-zttvli foods. Take cyih-szu-yyunurc or prescription medicines only as told by [...] 10/12/2004 Document Revised: 12/21/2017 Document Reviewed: 05/11/2016 [employer] Patient Education 2020 [employer]. Additional Information VACCINATE! IT SAVES LIVES! Members of the community who have not yet received the COVID-19 vaccine and would like to receive it can visit one of [facility] vaccine clinics. There are many vaccine clinic locations within the [facility]. For locations and available times, please visit [email or web address].[place].gov/. It is important to note that some COVID mobile vaccine clinics are held outdoors and may be canceled in rainy or stormy conditions. To learn more about pediatric vaccinations (ages 5-11), we invite you to visit the [facility] webpage. https://www.[email or web address].[email or web address]/pag [email or web address]-Llzuc-Otzcreycplw-[email or web address] hf-[email or web address]-Jmviagllc.html To learn more about the COVID-19 vaccine, we invite you to visit the CDC website for a list of frequently asked questions.https://www.cdc.gov/timur navirus/2019-ncov/vaccines/faq.htm l [employer] Patient Portal Access Instructions: Stay connected with your healthcare team and access your personal medical information anytime with the [employer] Patient Portal. Please follow the directions below to create your [employer] account: 1.Access the email account you provided upon registration to the hospital/physician office.2.Look for an invitation email from [facility].3.Open the email and access the invitation link: Accept Invitation to [employer].4.Fill in the required zuleta to create your account. To access your account, visit [email or web address]. Click the blue button labeled Access Patient [...] you will allow to register on the [employer] Patient Portal for access to your information. You can also access the [employer] Patient Portal on the [employer] hosea. Simply click on Patient Portal and then log into your account. If you would like to receive a full copy of your medical records, please contact the [facility] Medical Records Department by calling [phone], Tuesday through Tuesday between 8 a.m. and [...] Call your local pharmacy or go to [email or web address] to find one close to you.3.Make use of household items: Use cat litter or old coffee grounds to dispose medications if other options are not available. Mix your drugs with these household products, seal them in an airtight container and throw it into the garbage. Call [facility]: [phone] to be sure your drugs can be [...] aware that I should contact my doctor. 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 Procedure history: Colonoscopy ([id number]) on 09/12/2021 at 71 Years. Back fusion ([id number]). Comments: 09/13/2022 8:59 Nini Teixeira RN x4 [...] Resp Rate L 13br/min (SEP 13 09:12) TBW053 mmHg (SEP 13 09:12) DBP66 mmHg (SEP 13 09:12) BMI28.32 (SEP 13 09:22) Measurements from flowsheet : Measurements 09/13/2022 9:22 EDT Height 165 cm Admission Weight 77.11 kg [place] Body Weight 56.91 kg BSA Admission 1.85 Body Mass Index 28.32 kg/m2 09/13/2022 9:12 EDT Height 165 cm Admission Weight 77.11 kg Weight Lbs 169.6 lb [place] Body Weight 56.91 kg Pain assessment: Pain [...] Surgeon SN - CAt - Role Performed COMMODITY SPECIALIST SN - CAt - Role Performed Cardiac Specialist SN - CAt - Role Performed Volleyball Assistant Coach 1 09/13/2022 9:22 EDT Designated Person #1 We May Share JONAH Wang [phone] Designated Person #1 Relationship Spouse Height 165 cm Admission Weight 77.11 kg [place] Body Weight 56.91 kg BSA Admission 1.85 [...] evident Teaching Method Explanation Preferred Written Language Tanzanian Preferred Spoken Language Tanzanian Information Given by Patient Patient's Current Physicians [...] Weight 77.11 kg Weight Lbs 169.6 lb [place] Body Weight 56.91 kg Temperature Temporal Artery 35.9 DegC Apical Heart Rate 64 bpm Respiratory Rate 13 br/min LOW Systolic Blood Pressure Non-Invasive 123 mmHg Diastolic Blood Pressure Non-Invasive 66 mmHg Primary Pain Intensity 0 Pain Scale Type 0-10 Pain scale Heart Rhythm Regular Respirations Unlabored Oxygen Therapy Room air Oxygen Saturation 97 % Abdomen Description Non-distended, Soft Skin Temperature Warm Skin Description [place], Normal for ethnicity, Dry Skin Integrity Intact [...] position, Wheels locked . Assessment and Plan [place] [employer] Anesthesiologists (ASA) physical status classification: Class III. Anesthetic Preoperative Plan Anesthetic technique: MAC. Postoperative pain management: Per surgeon. Informed consent: signed by patient. Digitally Signed by LONA JACKMAN on 09/13/2022 09:39 AM [facility] Evaluation + Plan note Note Date & Type Note Facility Evaluation + Plan note No data available for this section [facility] Instructions Instruction Description Start Date Patient advised [...] DATE CREATED AUTHOR AUTHOR'S ORGANIZ ATION 09/18/2022 [facility] Patient Care team informatio n (unrecognized section and content) Care Team Personnel Name: AMAIRANI MALIK MD Member Role: Primary Care Physician Address: Address: [facility] [facility] [address] [place] [address]- Care Team Related Persons Name: SEN WANG Address: Home [address] [place] [address] [place] [id number] FOR RECORDS PERTAINING TO PATIENTS WHO ARE [...] BE BASED ON THE PRIMARY CLINICAL RECORDS. [employer] [facility]. provides no warranty or guarantee of the accuracy or completeness of information in this document.
== END | disposition home or self-care (01) ==
LOC: LAB 14:13
PROVIDERS: Physician Assistant Surgical; PCP Family Medicine Geriatric Medicine; Referring Provider Student in an Organized Health Care Education/Training Program; Visit Provider Student in an Organized Health Care Education/Training Program
DX: Z01.818 Encounter for other preprocedural examination (principal); E11.9 Type 2 diabetes mellitus without complications
CPT/HCPCS: 36415; 80048; 83036; 85025

== ENCOUNTER → 2023-08-25 | Outpatient (CLI) | payer MEDICARE, OTHER, SELFPAY ==
[2023-08-25 13:22] LABS: Absolute Lymphocyte Count 1.99 X10^3/uL (0.83-4.51); Absolute Neutrophil Count 3.7 X10^3/uL (2.0-7.7); Basophil# 0.11 X10^3/uL; Basophil% 1.6 % (0-1); Eosinophil# 0.31 X10^3/uL; Eosinophils% 4.5 % (0-5); Hematocrit 40.8 % (37-47); Hemoglobin 12.8 g/dL (12.0-15.0); Lymphocyte # 1.99 X10^3/ul (0.83-4.51); Mean Corp Hgb Conc 31.4 g/dL (32-36); Mean Corpuscular Volume 79.8 fL (81-99); Mean Platelet Vol. 11.1 fl (6.2-12.0); Monocyte# 0.68 X10^3/uL; Monocyte% 9.9 % (0-10); NRBC Flagged by Analyzer 0 % (0-5); Neutrophil # 3.74 X10^3/uL (2.7-7.7); Neutrophil % 54.6 % (47-70); Platelet Count 312 K/mm3 (150-450); RBC Distribution Width CV 13.5 % (11.6-14.6); RBC Distribution Width SD 39.3 fl (35.1-43.9); Red Blood Count 5.11 M/mm3 (4.2-5.4); White Blood Count 6.9 K/mm3 (4.4-11.0)
[2023-08-25 13:50] LABS: Vitamin D,25 Hydroxy 30.1 ng/mL
[2023-08-25 14:18] LABS: ALB/GLOB Ratio 1.1 RATIO (0.9-2.4); AST(SGOT) 17 U/L (15-37); Alanine Aminotransfer ALT/SGPT 21 U/L (13-56); Albumin, Serum 3.5 g/dL (3.2-5.0); Alkaline Phosphatase 64 U/L (45-117); Anion Gap 3 (5-15); BUN 22 mg/dL (7-18); BUN/Creat Ratio 19.3 RATIO (10-20); Calcium,Total 8.8 mg/dL (8.5-10.1); Chloride 106 mmol/L (98-107); Cholesterol 220 mg/dL (200); Creatinine, Serum 1.14 mg/dL (0.55-1.02); EST Glomerular Filtration Rate 49 mL/min (>60); Est Glom Filt Rate - Afr Amer 60 mL/min (>60); Globulin 3.2 g/dL (2.2-4.2); Glucose 100 mg/dL (74-106); High Density Lipoprotein 48 mg/dL; Potassium 4.4 mmol/L (3.5-5.1); Protein, Total 6.7 g/dL (6.4-8.2); Sodium Level 137 mmol/L (136-145); Thyroid Stim Hormone (TSH) 1.52 uIU/mL (0.358-3.74); Triglycerides 206 mg/dL; Very Low Density Lipoprotein 41 mg/dL (5-40)
== END | disposition home or self-care (01) ==
PROVIDERS: PCP Family Medicine Geriatric Medicine; Referring Provider Family Medicine Geriatric Medicine; Visit Provider Family Medicine Geriatric Medicine
DX: I10 Essential (primary) hypertension (principal); E55.9 Vitamin D deficiency, unspecified; E78.5 Hyperlipidemia, unspecified
CPT/HCPCS: 36415; 80053; 80061; 82306; 84443; 85025

== ENCOUNTER → 2024-02-15 | Outpatient (CLI) | payer MEDICARE, OTHER, SELFPAY ==
[2024-02-15 13:44] LABS: Absolute Neutrophil Count 4.2 X10^3/uL (2.0-7.7); Basophil# 0.07 X10^3/uL; Eosinophil# 0.23 X10^3/uL; Eosinophils% 3.3 % (0-5); Hematocrit 40.5 % (37-47); Hemoglobin 12.7 g/dL (12.0-15.0); Lymphocyte % 26.9 % (19-41); Mean Corp Hgb Conc 31.4 g/dL (32-36); Mean Corpuscular Hgb 24.5 pg (27.0-32.0); Mean Platelet Vol. 10.5 fl (6.2-12.0); Monocyte# 0.67 X10^3/uL; Monocyte% 9.5 % (0-10); NRBC Flagged by Analyzer 0 % (0-5); Neutrophil # 4.17 X10^3/uL (2.7-7.7); Platelet Count 315 K/mm3 (150-450); RBC Distribution Width CV 13.4 % (11.6-14.6); RBC Distribution Width SD 37.9 fl (35.1-43.9); Red Blood Count 5.19 M/mm3 (4.2-5.4); White Blood Count 7.1 K/mm3 (4.4-11.0)
[2024-02-15 14:25] LABS: ALB/GLOB Ratio 1.1 RATIO (0.9-2.4); AST(SGOT) 16 U/L (15-37); Alanine Aminotransfer ALT/SGPT 24 U/L (13-56); Albumin, Serum 3.6 g/dL (3.2-5.0); Alkaline Phosphatase 67 U/L (45-117); Anion Gap 4 (5-15); BUN 16 mg/dL (7-18); BUN/Creat Ratio 13.3 RATIO (10-20); Chloride 105 mmol/L (98-107); EST Glomerular Filtration Rate 47 mL/min (>60); Est Glom Filt Rate - Afr Amer 56 mL/min (>60); Globulin 3.2 g/dL (2.2-4.2); Glucose 92 mg/dL (74-106); Potassium 4.6 mmol/L (3.5-5.1); Protein, Total 6.8 g/dL (6.4-8.2); Sodium Level 138 mmol/L (136-145)
[2024-02-15 16:32] LABS: Vitamin D,25 Hydroxy 28.7 ng/mL
== END | disposition home or self-care (01) ==
LOC: POLAB3 13:32
PROVIDERS: PCP Family Medicine Geriatric Medicine; Visit Provider Family Medicine Geriatric Medicine
DX: I10 Essential (primary) hypertension (principal); E55.9 Vitamin D deficiency, unspecified
CPT/HCPCS: 36415; 80053; 82306; 84443; 85025

== ENCOUNTER → 2024-02-23 | Outpatient (CLI) | payer MEDICARE, OTHER, SELFPAY ==
--- NOTE | 2024-02-23 14:00 | BI_ITS ---
MAMMOGRAPHY - BILATERAL SCREENING REASON FOR EXAM: Female, 73 years old. Routine annual screening examination. PERTINENT HISTORY: Mother with breast cancer. Aunts with breast cancer. TECHNIQUE: Digital bilateral breast denice (3D mammographic acquisition) in the CC and MLO projections. 2-D mediolateral oblique (MLO) and craniocaudad (CC) views of both breasts were obtained. CAD: Full Field Digital Mammography with Computer Added Detection was performed. COMPARISON: Comparison is made with prior study dated August 31, 2021 and August 15, 2019 FINDINGS: Breast Composition: The breasts are heterogeneously dense, which may obscure small masses. There are no dominant masses or suspicious calcifications. Stable bilateral fat containing axillary lymph nodes. No other significant abnormalities are identified. There has been no significant change since the prior study. BI/SCRN MAMM (CAD)W/DENICE BILAT IMPRESSION: Stable bilateral screening mammogram. Yearly follow-up mammogram recommended. (A) ASSESSMENT CATEGORY: BIRADS Category 2: Benign. A letter regarding these results will be sent to the patient by the facility within 30 days. Approximately 10% of breast cancers are not detected by mammography. A normal mammogram should not delay biopsy of a clinically suspicious abnormality. [id number] Electronically Signed: Neil Rosario MD at 14:49 EST ,
== END | disposition home or self-care (01) ==
LOC: OPBI 13:59
PROVIDERS: PCP Family Medicine Geriatric Medicine; Referring Provider Family Medicine Geriatric Medicine; Visit Provider Family Medicine Geriatric Medicine
DX: Z12.31 Encounter for screening mammogram for malignant neoplasm of breast (principal)
CPT/HCPCS: 77063; 77067

== ENCOUNTER → 2024-07-12 | Outpatient (CLI) | payer MEDICARE, OTHER, SELFPAY | END | disposition home or self-care (01) | PROVIDERS: PCP Family Medicine Geriatric Medicine; Referring Provider Family Medicine Geriatric Medicine; Visit Provider Family Medicine Geriatric Medicine | DX: N39.0 Urinary tract infection, site not specified (principal) | CPT/HCPCS: 87086; 87088; 87186 ==

== ENCOUNTER → 2024-08-27 | Outpatient (CLI) | payer MEDICARE, OTHER, SELFPAY ==
[2024-08-27 14:43] LABS: Absolute Lymphocyte Count 1.54 X10^3/uL (0.83-4.51); Absolute Neutrophil Count 4.8 X10^3/uL (2.0-7.7); Basophil# 0.06 X10^3/uL; Basophil% 0.8 % (0-1); Eosinophil# 0.26 X10^3/uL; Eosinophils% 3.6 % (0-5); Hematocrit 38.5 % (37-47); Lymphocyte # 1.54 X10^3/ul (0.83-4.51); Lymphocyte % 21.5 % (19-41); Mean Corp Hgb Conc 31.2 g/dL (32-36); Mean Corpuscular Hgb 23.6 pg (27.0-32.0); Mean Corpuscular Volume 75.6 fL (81-99); Mean Platelet Vol. 10.8 fl (6.2-12.0); Monocyte# 0.49 X10^3/uL; Monocyte% 6.8 % (0-10); NRBC Flagged by Analyzer 0 % (0-5); Neutrophil # 4.79 X10^3/uL (2.7-7.7); Neutrophil % 66.9 % (47-70); Platelet Count 314 K/mm3 (150-450); RBC Distribution Width CV 14.5 % (11.6-14.6); RBC Distribution Width SD 39.5 fl (35.1-43.9); Red Blood Count 5.09 M/mm3 (4.2-5.4); White Blood Count 7.2 K/mm3 (4.4-11.0)
[2024-08-27 16:30] LABS: ALB/GLOB Ratio 1.7 RATIO (0.9-2.4); AST(SGOT) 21 U/L (<=31); Alanine Aminotransfer ALT/SGPT 15 U/L (<=34); Albumin, Serum 4.1 g/dL (3.4-4.8); Alkaline Phosphatase 72 U/L (35-104); Anion Gap 12 (5-15); BUN 17 mg/dL (4-19); BUN/Creat Ratio 15.9 RATIO (10-20); Calcium,Total 9.4 mg/dL (7.6-11.0); Carbon Dioxide 23.7 mmol/L (21.0-32.0); Chloride 102 mmol/L (98-108); Creatinine, Serum 1.09 mg/dL (0.70-1.20); EST Glomerular Filtration Rate 53 (>60); Globulin 2.4 g/dL (2.2-4.2); Glucose 90 mg/dL (70-99); Protein, Total 6.5 g/dL (5.9-8.4); Sodium Level 138 mmol/L (133-145); Vitamin D,25 Hydroxy 28.1 ng/mL (30-100)
[2024-08-28 15:50] LABS: Total Bilirubin < 0.15 mg/dL (0.00-1.30)
== END | disposition home or self-care (01) ==
LOC: LAB 13:33
PROVIDERS: PCP Family Medicine Geriatric Medicine; Referring Provider Family Medicine Geriatric Medicine; Visit Provider Family Medicine Geriatric Medicine
DX: I10 Essential (primary) hypertension (principal); E55.9 Vitamin D deficiency, unspecified
CPT/HCPCS: 36415; 80053; 82306; 84443; 85025

== ENCOUNTER → 2025-02-26 | Outpatient (CLI) | payer OTHER, SELFPAY ==
[2025-02-26 13:02] LABS: Hematocrit 40.0 % (37-47); Hemoglobin 12.2 g/dL (12.0-15.0); Immature Granulocytes Count 0.040 X10^3/uL (0.0-0.0); Mean Corp Hgb Conc 30.5 g/dL (32-36); Mean Corpuscular Volume 78.6 fL (81-99); Mean Platelet Vol. 10.8 fl (6.2-12.0); NRBC Flagged by Analyzer 0 % (0-5); Platelet Count 349 K/mm3 (150-450); RBC Distribution Width CV 14.2 % (11.6-14.6); RBC Distribution Width SD 40.3 fl (35.1-43.9); Red Blood Count 5.09 M/mm3 (4.2-5.4); White Blood Count 7.0 K/mm3 (4.4-11.0)
[2025-02-26 13:24] LABS: Vitamin D,25 Hydroxy 25.9 ng/mL (30-100)
[2025-02-26 13:37] LABS: Cholesterol 221 mg/dL (<=200); Low Density Lipoprotein Calc. 137 mg/dL; Triglycerides 196 mg/dL; Very Low Density Lipoprotein 39 mg/dL (5-40); cholesterol:hdl ratio screen 4.55
[2025-02-26 13:39] LABS: AST(SGOT) 18 U/L (<=31); Alanine Aminotransfer ALT/SGPT 16 U/L (<=34); Albumin, Serum 4.0 g/dL (3.4-4.8); Alkaline Phosphatase 73 U/L (35-104); Anion Gap 7 (5-15); BUN 19 mg/dL (4-19); BUN/Creat Ratio 14.6 RATIO (10-20); Calcium,Total 8.8 mg/dL (7.6-11.0); Carbon Dioxide 25.3 mmol/L (21.0-32.0); Chloride 104 mmol/L (98-108); Globulin 2.3 g/dL (2.2-4.2); Glucose 101 mg/dL (70-99); Potassium 4.7 mmol/L (3.3-5.1)
[2025-02-26 20:39] LABS: Xtra Tube Kwok EXTRA TUBE
== END | disposition home or self-care (01) ==
PROVIDERS: PCP Family Medicine Geriatric Medicine; Visit Provider Family Medicine Geriatric Medicine
DX: E03.9 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, unspecified (principal); E55.9 Vitamin D deficiency, unspecified; I10 Essential (primary) hypertension
CPT/HCPCS: 36415; 80053; 80061; 82306; 84443; 85025